=== PATIENT | female | born 1970 | race Caucasian/White ===

== ENCOUNTER → 2016-06-06 | Outpatient (CLI) | payer BC ==
[~2016-06-06] MED LIST: ESCI1TAB10 PO
[2016-06-16 10:02] LABS: CRYPTOSPORIDIUM AG TC 37213 NOT DETECTED (NOT DETECTED); O&P SOURCE OTHER-STOOL
== END | disposition home or self-care (01) ==
LOC: C.LAB 16:42
PROVIDERS: ATTEND Internal Medicine
DX: K52.9 Noninfective gastroenteritis and colitis, unspecified (principal)

== ENCOUNTER → 2016-06-12 | Outpatient (CLI) | payer BC ==
--- NOTE | 2016-06-12 10:07 | DIAGNOSTIC IMAGING REPORT ---
LEFT KNEE 1 OR 2 VIEWS ROUTINE CLINICAL HISTORY: Bilateral knee osteoarthritis. Knee pain. COMPARISON: None FINDINGS: Alignment of left knee is anatomic. There is no acute fracture. There is a small joint effusion. There is moderate medial compartment joint space narrowing of the left knee. There is also moderate joint space narrowing within the patellofemoral compartment with osteophytosis. There is osteophytosis within the lateral compartment of the left knee. IMPRESSION: 1. Moderate to severe osteoarthritis within the medial and patellofemoral compartments of the left knee. 2. No acute fracture. 3. Small left knee joint effusion. Electronically signed by: Edis Mccauley M.D. 06/12/2016 10:05 AM Dictated Date/Time: 06/12/2016 10:04 AM
--- NOTE | 2016-06-12 10:08 | DIAGNOSTIC IMAGING REPORT ---
RIGHT KNEE 1 OR 2 VIEWS ROUTINE CLINICAL HISTORY: Bilateral knee pain. Osteoarthritis. COMPARISON: None FINDINGS: There is moderate medial compartment joint space narrowing of the right knee with osteophytosis. There is a moderate-sized joint effusion. There is joint space narrowing and osteophytosis of the patellofemoral compartment. No fracture or suspicious lesion is identified. IMPRESSION: 1. Moderate arthritis within the medial and patellofemoral compartments of the right knee. 2. Moderate size right knee joint effusion. 3. No fracture. Electronically signed by: Edis Mccauley M.D. 06/12/2016 10:06 AM Dictated Date/Time: 06/12/2016 10:06 AM
[2016-06-12 13:41] LABS: BASO % 0.4 %; BASO ABS # 0.04 K/uL (0-0.2); COMPLETE YES; EOS % 3.6 %; HEMATOCRIT 44.5 % (37-47); IG% 0.2 %; LYMPH % 23.8 %; LYMPH ABS # 2.51 K/uL (1.2-3.4); MEAN CELL VOLUME 88.5 fL (80-100); MEAN CORPUSCULAR HEMOGLOBIN 30.4 pg (25-34); MEAN CORPUSCULAR HGB CONC 34.4 g/dl (32-36); MEAN PLATELET VOLUME 11.1 fL (7.4-10.4); MONO % 6.8 %; NEUT % 65.2 %; PLATELET COUNT 294 K/uL (130-400); RED BLOOD COUNT 5.03 M/uL (4.2-5.4); WHITE BLOOD COUNT 10.56 K/uL (4.8-10.8)
[2016-06-12 14:00] LABS: ALT/SGPT 38 U/L (12-78); AST/SGOT 19 U/L (15-37); BLOOD UREA NITROGEN 16 mg/dl (7-18); BUN/CREATININE RATIO 26.6 (10-20); CARBON DIOXIDE 25 mmol/L (21-32); CHLORIDE 110 mmol/L (98-107); CREATININE 0.59 mg/dl (0.60-1.20); GLUCOSE 86 mg/dl (70-99); POTASSIUM 3.9 mmol/L (3.5-5.1); SODIUM 143 mmol/L (136-145)
[2016-06-12 14:10] LABS: ALKALINE PHOSPHATASE 60 U/L (45-117)
== END | disposition home or self-care (01) ==
LOC: C.RADBC 09:36
PROVIDERS: ATTEND Internal Medicine
DX: K52.9 Noninfective gastroenteritis and colitis, unspecified (principal); M17.0 Bilateral primary osteoarthritis of knee

== ENCOUNTER → 2016-06-27 | Outpatient (CLI) | payer BC | END | disposition home or self-care (01) | LOC: C.RDSM 14:36 | PROVIDERS: ATTEND Orthopaedic Surgery Sports Medicine | DX: M25.561 Pain in right knee (principal); M25.562 Pain in left knee ==

== ENCOUNTER → 2016-10-30 | Day surgery (SDC) | payer BC ==
[2016-10-29 14:54] VITALS: Ht 172.7 cm; Wt 106.4 kg
[~2016-10-30] VITALS: Ht 172.7 cm; Wt 106.4 kg
[~2016-10-30] MED LIST changes: +LIDOCAINE HCL 2% 2 ML VIAL (20MG/ML) ONE; +METOCLOPRAMIDE HCL INJ 5 MG/ML 2 ML VIAL ONE; +PROPOFOL IV EMULSION 10 MG/ML 20 ML VIAL IV ONE; +SODIUM CHLORIDE 0.9% 500ML 500 ML IV ONE
[2016-10-30 15:25] VITALS: TEMP 36.8
--- NOTE | 2016-10-30 16:09 | Endo History and Physical ---
History & Physical Date of Service: Oct 30, 2016. Chief Complaint: Diarrhea Referring Physician: Nubia ALEJANDRO History of Present Illness 46 yo CF who presents for colonoscopy secondary to diarrhea. Past Surgical History Hx Cardiac Surgery: No Hx Internal Defibrillator: No Hx Pacemaker: No Hx Abdominal Surgery: Yes (OVARIAN CYST REMOVAL, HERNIA REPAIR) Hx of Implantable Prosthesis: No Hx Post-Op Nausea and Vomiting: No Hx Cancer Surgery: No Hx Thoracic Surgery: No Hx Orthopedic: Yes (LEFT KNEE MENISCUS REPAIR) Hx Urinary Tract Surgery: No Family History Colon CA, IBD Social History Smoking Status: Current Every Day Smoker Hx Substance Use: No Hx Alcohol Use: No Allergies Coded Allergies: Cephalexin (Verified Allergy, Unknown, HIVES, 10/29/16) Erythromycin (Verified Allergy, Unknown, HIVES, 10/29/16) Nitrofurantoin (Verified Allergy, Unknown, HIVES, 10/29/16) Penicillins (Verified Allergy, Unknown, HIVES, 10/29/16) Sulfa Antibiotics (Verified Allergy, Unknown, HEADACHES, 10/29/16) Current Medications Reported Home Medications Medications Dose Route/Sig Max Daily Dose Days Date Category Lexapro (Escitalopram Oxalate) 20 Mg Tab 20 Mg PO QPM 10/29/16 Reported Vital Signs Weight (Kilograms): 106.36 Height (Feet): 5 Height (Inches): 8 Date Time Temp Pulse Resp B/P (MAP) Pulse Ox O2 Delivery O2 Flow Rate FiO2 10/30/16 15:25 36.8 81 18 123/85 (98) 96 Room Air Physical Exam General Appearance: WD/WN, no apparent distress Respiratory/Chest: Auscultation: breath sounds normal Cardiovascular: Heart Auscultation: RRR Abdomen: Bowel Sounds: normal Inspection & Palpation: soft, non-distended, no tenderness, guarding & rebound Assessment and Plan Assessment: 46 yo CF who presents for colonoscopy secondary to diarrhea. Plan: Proceed with colonoscopy.
--- NOTE | 2016-10-30 16:30 | Discharge Instructions ---
Endoscopy Patient Instructions Date / Procedure(s) Performed Oct 30, 2016. Colonoscopy Allergy Information Coded Allergies: Cephalexin (Verified Allergy, Unknown, HIVES, 10/29/16) Erythromycin (Verified Allergy, Unknown, HIVES, 10/29/16) Nitrofurantoin (Verified Allergy, Unknown, HIVES, 10/29/16) Penicillins (Verified Allergy, Unknown, HIVES, 10/29/16) Sulfa Antibiotics (Verified Allergy, Unknown, HEADACHES, 10/29/16) Discharge Date / Findings Oct 30, 2016. Terminal ileitis s/p biopsies Random colon biopsies Diverticulosis Internal hemorrhoids Medication Instructions OK to resume all medications today as prescribed Medications Dose Route/Sig Max Daily Dose Days Date Category Lexapro (Escitalopram Oxalate) 20 Mg Tab 20 Mg PO QPM 10/29/16 Reported Provider Instructions Activity Restrictions - No exercising or heavy lifting for 24 hours. - Do not drink alcohol the day of the procedure. - Do not drive a car or operate machinery until the day after the procedure. - Do not make any important decisions or sign important papers in 24 hours after the procedure. Following Day: - Return to full activity which may include returning to work/school. Diet Start your diet with liquids and light foods (jello, soup, juice, toast). Then eat your usual diet if not nauseated. Treatment For Common After Affects For mild abdominal pain, bloating, or excessive gas: - Rest - Eat lightly - Lie on right side Follow-Up Information Follow-up with Nubia ALEJANDRO as scheduled Anesthesia Information What You Should Know You have had a procedure that required some medicine to reduce anxiety and discomfort. This treatment is called moderate sedation. After receiving the treatment, you may be sleepy, but you will be able to breathe on your own. The effects of the treatment may last for several hours. Follow these instructions along with Activity/Diet recommendations noted above: * Do NOT do anything where dizziness or clumsiness would be dangerous. * Rest quietly at home today, then you can be up and about tomorrow. * Have a responsible person stay with you the rest of today. * You may have had an I.V. today. If so, you may take the dressing off later today. Recommendations Call your doctor if: * Trouble breathing * Continuous vomiting for more than 24 hours * Temperature above 101 degrees * Severe abdominal pain or bloating * Pain not relieved by pain medicine ordered * There is increased drainage or redness from any incision * A large amount of rectal bleeding greater than 2-3 tablespoons. (If you had a polyp/s removed or have hemorrhoids, a small amount of blood - from the rectum is to be expected.) * You have any unanswered questions or concerns. IN THE EVENT OF A SERIOUS EMERGENCY, GO TO THE NEAREST EMERGENCY ROOM Your discharge instructions were prepared by provider Mike Gottlieb. Patient Instructions Signature Page Muriel Nunn Patient (or Guardian) Signature/Date: I have read and understand the instructions given to me by my caregivers. Caregiver/RN/Doctor Signature/Date: The above-named patient and/or guardian has received patient instructions on this date. + Original Patient Signature Page (only) stays with chart. Please make copy for patient.
--- NOTE | 2016-10-30 16:36 | GI REPORT ---
Procedure Date: 10/30/2016 4:09 PM Procedure: Colonoscopy Indications: Chronic diarrhea, Weight loss Medicines: Monitored Anesthesia Care Complications: No immediate complications. Estimated Blood Loss: Estimated blood loss: none. Procedure: Pre-Anesthesia Assessment: - Prior to the procedure, a History and Physical was performed, and patient medications and allergies were reviewed. The patient's tolerance of previous anesthesia was also reviewed. The risks and benefits of the procedure and the sedation options and risks were discussed with the patient. All questions were answered, and informed consent was obtained. Prior Anticoagulants: The patient has taken no previous anticoagulant or antiplatelet agents. ASA Grade Assessment: II - A patient with mild systemic disease. After reviewing the risks and benefits, the patient was deemed in satisfactory condition to undergo the procedure. After I obtained informed consent, the scope was passed under direct vision. Throughout the procedure, the patient's blood pressure, pulse, and oxygen saturations were monitored continuously. The scope was introduced through the anus and advanced to the terminal ileum. The colonoscopy was performed without difficulty. The patient tolerated the procedure well. The quality of the bowel preparation was good. The terminal ileum, ileocecal valve, appendiceal orifice, and rectum were photographed. Findings: Localized inflammation, mild in severity and characterized by congestion (edema), linear erosions and aphthous ulcerations was found in the terminal ileum. Biopsies were taken with a cold forceps for histology. Multiple small-mouthed diverticula were found in the sigmoid colon. Non-bleeding internal hemorrhoids were found during retroflexion. The hemorrhoids were small. Several random biopsies were obtained with cold forceps for histology in the entire colon. Fluid aspiration for cytology was performed in the entire colon. Impression: - Ileitis. Biopsied. - Diverticulosis in the sigmoid colon. - Non-bleeding internal hemorrhoids. - Several random biopsies were obtained in the entire colon. - Fluid aspiration was performed. Recommendation: - Resume previous diet. - Continue present medications. - Repeat colonoscopy for surveillance based on pathology results. - Return to primary care physician as previously scheduled. Mike Gottlieb DO 10/30/2016 4:36:24 PM This report has been signed electronically. Note Initiated On: 10/30/2016 4:09 PM I attest to the content of the Intraoperative Record and orders documented therein, exceptions below
[2016-10-30 17:09] VITALS: BP 127/97; PULSE 66; O2SAT 95
--- NOTE | 2016-10-30 17:16 | Anesthesiology Progress Note ---
Anesthesia Post Op Note Date & Time Oct 30, 2016 at 17:16 Vital Signs Pain Intensity: 0 Vital Signs Past 12 Hours Date Time Temp Pulse Resp B/P (MAP) Pulse Ox O2 Delivery O2 Flow Rate FiO2 10/30/16 17:09 66 16 127/97 (107) 95 Room Air 10/30/16 16:54 68 16 135/95 (108) 94 Room Air 10/30/16 16:39 94 16 132/81 (98) 94 Room Air 10/30/16 15:25 36.8 81 18 123/85 (98) 96 Room Air Notes Mental Status: alert / awake / arousable, participated in evaluation Pt Amnestic to Procedure: Yes Nausea / Vomiting: adequately controlled Pain: adequately controlled Airway Patency, RR, SpO2: stable & adequate BP & HR: stable & adequate Hydration State: stable & adequate Anesthetic Complications: no major complications apparent
== END | disposition home or self-care (01) ==
LOC: C.GI 15:07
PROVIDERS: ATTEND Internal Medicine
DX: K52.9 Noninfective gastroenteritis and colitis, unspecified (principal); R63.4 Abnormal weight loss; K57.30 Diverticulosis of large intestine without perforation or abscess without bleeding; E66.9 Obesity, unspecified; G47.33 Obstructive sleep apnea (adult) (pediatric); K64.8 Other hemorrhoids; Z98.890 Other specified postprocedural states; F17.200 Nicotine dependence, unspecified, uncomplicated; Z98.41 Cataract extraction status, right eye; Z90.89 Acquired absence of other organs; Z68.36 Body mass index [BMI] 36.0-36.9, adult; Z88.2 Allergy status to sulfonamides; Z88.0 Allergy status to penicillin; Z88.1 Allergy status to other antibiotic agents; Z80.0 Family history of malignant neoplasm of digestive organs

== ENCOUNTER → 2016-11-06 | Outpatient (CLI) | payer BC ==
[~2016-11-06] MED LIST changes: -LIDOCAINE HCL 2% 2 ML VIAL (20MG/ML) ONE; -METOCLOPRAMIDE HCL INJ 5 MG/ML 2 ML VIAL ONE; -PROPOFOL IV EMULSION 10 MG/ML 20 ML VIAL IV ONE; -SODIUM CHLORIDE 0.9% 500ML 500 ML IV ONE
[2016-11-06 14:44] LABS: BASO % 0.3 %; BASO ABS # 0.04 K/uL (0-0.2); COMPLETE YES; EOS % 1.3 %; HEMATOCRIT 44.7 % (37-47); IG% 0.2 %; LYMPH % 19.8 %; LYMPH ABS # 2.51 K/uL (1.2-3.4); MEAN CELL VOLUME 88.5 fL (80-100); MEAN CORPUSCULAR HEMOGLOBIN 28.9 pg (25-34); MEAN CORPUSCULAR HGB CONC 32.7 g/dl (32-36); MONO % 5.9 %; NEUT % 72.5 %; PLATELET COUNT 313 K/uL (130-400); RED BLOOD COUNT 5.05 M/uL (4.2-5.4)
[2016-11-06 15:37] LABS: ALT/SGPT 39 U/L (12-78); AST/SGOT 22 U/L (15-37); BLOOD UREA NITROGEN 8 mg/dl (7-18); BUN/CREATININE RATIO 10.9 (10-20); C-REACTIVE PROTEIN 1.01 mg/dl (0-0.29); CARBON DIOXIDE 25 mmol/L (21-32); CHLORIDE 110 mmol/L (98-107); GLUCOSE 89 mg/dl (70-99); POTASSIUM 3.2 mmol/L (3.5-5.1); SODIUM 143 mmol/L (136-145)
[2016-11-06 15:39] LABS: ALB/GLOB RATIO 0.9 (0.9-2); ALKALINE PHOSPHATASE 65 U/L (45-117)
== END | disposition home or self-care (01) ==
LOC: C.LAB1850 14:04
PROVIDERS: ATTEND Registered Nurse
DX: K63.3 Ulcer of intestine (principal); K52.9 Noninfective gastroenteritis and colitis, unspecified

== ENCOUNTER → 2017-10-03 | Outpatient (CLI) | payer OTHER ==
--- NOTE | 2017-10-03 12:00 | DIAGNOSTIC IMAGING REPORT ---
CHEST 2 VIEWS ROUTINE HISTORY: Cough. COMPARISON: Chest 04/02/2015. FINDINGS: The lungs are clear. The heart is normal in size. No pleural effusions. No pneumothorax. IMPRESSION: No acute process. Electronically signed by: Simón Nino M.D. 10/03/2017 11:59 AM Dictated Date/Time: 10/03/2017 11:57 AM
== END | disposition home or self-care (01) ==
LOC: C.RAD1850 11:36
PROVIDERS: ATTEND Nurse Practitioner
DX: R05 Cough (principal)

== ENCOUNTER 2019-03-06 14:22 | Inpatient (IN) ==
[2019-03-06 15:31] LABS: Basophils # (auto) 0.03 K/uL (0-0.2); Basophils % (auto) 0.3 %; Eosinophils # (auto) 0.23 K/uL (0-0.5); Eosinophils % (auto) 2.3 %; Hematocrit (blood only) 49.4 % (37-47); Hemoglobin 16.7 g/dL (12.0-16.0); Immature Granulocytes # (auto) 0.01 K/uL (0.00-0.02); Immature Granulocytes % (auto) 0.1 %; Lymphocytes # (auto) 1.13 K/uL (1.2-3.4); Lymphocytes % (auto) 11.1 %; Mean Corpuscular Hemoglobin 30.5 pg (25-34); Mean Corpuscular Hgb Conc 33.8 g/dL (32-36); Mean Corpuscular Volume 90.1 fL (80-100); Mean Platelet Volume 11.3 fL (7.4-10.4); Monocytes # (auto) 0.78 K/uL (0.11-0.59); Monocytes % (auto) 7.6 %; Neutrophils # (auto) 8.03 K/uL (1.4-6.5); Neutrophils % (auto) 78.6 %; Platelet Count 234 K/uL (130-400); RDW Coefficient of Variation 13.5 % (11.5-14.5); RDW Standard Deviation 44.4 fL (36.4-46.3); Red Blood Count 5.48 M/uL (4.2-5.4); White Blood Count 10.21 K/uL (4.8-10.8)
[2019-03-06] MEDS ORDERED: SODIUM CHLORIDE 0.9% 1000ML 1,000 ML IV ONE (15:37)
--- NOTE | 2019-03-06 15:37 | Emergency Department Note ---
ED Provider Note CHIEF COMPLAINT: Left-sided abdominal and flank pain HISTORY OF PRESENTING ILLNESS: This is a 48-year-old female who presents to the emergency department by private vehicle with complaint of diffuse abdominal pain that radiates into her left side and has been ongoing for the past 2 days. She states the pain is constant, cramping and occasionally sharp, and rates it as 8/10. She has tried Tylenol for her symptoms without much improvement. Patient has also had associated nausea and has vomited twice a day. She denies any diarrhea. She does note that her last bowel movement was 2 days ago and she is feeling slightly constipated. She denies any urinary symptoms. She does report a history of a spigelion (lateral ventral) hernia repair 6 years ago, she denies any other abdominal surgeries. She denies any history of kidney stones. She does have a family history of kidney stones. She does note that she has had some pain radiating up into the left side of her chest as well, but denies any shortness of breath, cough, hemoptysis, fevers or chills. She notes that she travels a lot for her job and recently returned a few days ago from visiting [facility], [facility], and [facility]. She does note that she has had some intermittent swelling in both of her legs during her travels, but denies any persistent calf swelling or tenderness. She denies any history of blood clots. She is a current everyday smoker. She is postmenopausal and denies any chance of . REVIEW OF SYSTEMS: A complete 10 point review of systems was reviewed with the patient with pertinent positives and negatives as per history of present illness. All else were negative. PAST MEDICAL HISTORY: Migraines, hyperlipidemia, anxiety, sleep apnea, hernia r epair, tonsillectomy and adenoidectomy, ovarian cystectomy SOCIAL HISTORY: Lives at home with her family, she is a current everyday smoker ALLERGIES: Reviewed in chart and with the patient PHYSICAL EXAM: CONSTITUTIONAL: Pleasant and cooperative. Nontoxic-appearing and in no acute distress. Mildly dehydrated, but otherwise well appearing and well nourished. HEENT: Normocephalic, atraumatic. PERRL, EOMI. Pharynx normal. Tacky mucous membranes. NECK: Supple, full active range of motion without discomfort. RESPIRATORY: Clear to auscultation bilaterally with no wheezing, crackles, rhonchi or stridor. Equal expansion bilaterally. CARDIOVASCULAR: Regular rate and rhythm with no murmurs, rubs or gallops. Normal peripheral perfusion. No edema. GASTROINTESTINAL: Diffuse abdominal tenderness, most tender in the right and left upper quadrant and left flank, no rebound tenderness or guarding. Abdomen is soft and nondistended. No palpable masses or HSM. Bowel sounds present in all quadrants. No CVA tenderness bilaterally. MUSCULOSKELETAL: Full range of motion of all joints without discomfort. INTEGUMENTARY: No rash or other significant dermatologic conditions noted. NEUROLOGIC: Alert and oriented X 4 with normal affect. Normal strength and sensation in all 4 extremities. Normal speech. Normal gait observed. ED COURSE AND MEDICAL DECISION MAKING: CC: Patient presenting with complaint of abdominal/flank pain, nausea and vomiting DIFFERENTIAL DIAGNOSIS: Includes, but not limited to gastroenteritis, gastritis, peptic ulcer disease, GERD, cholecystitis, cholelithiasis, panc reatitis, choledocholithiasis, ureteral stone, UTI, pyelonephritis, diverticulitis, food poisoning, ACS, PE, among others. INTERPRETATION OF LABS: No leukocytosis, no anemia, normal platelet, no sign ificant electrolyte abnormalities, normal renal function, significantly elevated T bili and liver enzymes, normal lipase. Coagulation factors within normal limits. UA negative for infection. Hepatitis panel pending. IMAGING: CHEST CTA for PULMONARY ARTERIES CT DOSE: HISTORY: left flank and chest pain, eval PE TECHNIQUE: Multiaxial CT images of the chest were performed following the intrav enous administration of contrast to evaluate the pulmonary arteries. Maximal intensity projection images were also obtained. A dose lowering technique was utilized adhering to the principles of ALARA. COMPARISON STUDY: None. FINDINGS: Normal caliber thoracic aorta with no evidence for dissection. The heart is normal in size. No pleural or pericardial effusions. No mediastinal or hilar lymphadenopathy. Normal esophagus. No suspicious lytic are blastic osseous lesions. The central airways are patent. No pneumothorax. Groundglass densities within the lungs posteriorly favor mild dependent change. A 3 mm nodule within the right lung apex on image 250. A 4 mm subpleural nodule within the right upper lobe on image 186. No focal lung consolidations. No filling defects within the pulmonary arteries to suggest pulmonary embolus. IMPRESSION: 1. No evidence for pulmonary embolus. 2. Subcentimeter nodules within the right lung with the largest measuring 4 mm as described above. Please refer to the chart below for further recommendations. ----- ABDOMEN AND PELVIS CT WITH IV CONTRAST CT DOSE: 2453.49 mGy.cm HISTORY: abd, left flank pain, n/v, hx left ventr hernia TECHNIQUE: Multiaxial CT images of the abdomen and pelvis were performed following the use of intravenous contrast. A dose lowering technique was utilized adhering to the principles of ALARA. COMPARISON STUDY: None. FINDINGS: The lung bases are essentially clear. No pneumoperitoneum. No pneumatosis. No suspicious lytic are blastic osseous lesions. No fractures identified. The liver, spleen, adrenal glands, pancreas, and kidneys are unremarkable. No hydronephrosis. No retroperitoneal lymphadenopathy. A 1.2 cm exophytic lesion at the uterine fundus. This favors a fibroid. The bladder and bilateral adnexa are unremarkable. No pelvic free fluid. Colonic diverticulosis. No evidence for diverticulitis. No bowel wall thickening or obstruction. The tip the appendix is distended up to 1 cm. However, there is no surrounding inflammatory change. This could represent a normal variant. Diffuse gallbladder wall thickening with a small amount of pericholecystic fluid. Normal caliber common bile duct. IMPRESSION: 1. Diffuse gallbladder wall thickening with a small amount of pericholecystic fluid. This is nonspecific and could be due to a diffuse edematous state or acute cholecystitis. Recommend correlation for right upper quadrant pain. 2. The tip of the appendix is distended up to 1 cm. However, there is no vu rounding inflammatory change. Therefore, this does not appear to represent acute appendicitis and could represent a normal variant. One-month abdomen and pelvis CT follow-up with oral contrast is recommended to ensure stability and exclude the less likely possibility of an appendiceal lesion. 3. No evidence for bowel obstruction. EKG: Shows normal sinus rhythm with a rate of 63 bpm, normal intervals, no ST or T wave abnormalities, no ectopy, no significant change when compared to previous EKG from 11/10/2018 by my interpretation. MEDICATION RECONCILIATION: I attest that I have personally reviewed the patient's current medication list. INITIAL VITAL SIGNS REVIEW: I reviewed the patient's initial vital signs and interpret them as follows: T: Afebrile; BP: Hypertensive; HR: Within normal limits; RR: Within normal limits; Pulse Ox: Within normal limits on room air. Blood pressure screening: The patient was found to have an elevated blood pressure and was referred to the inpatient team for further management. MDM SUMMARY: Patient was evaluated at bedside, history and physical exam performed. Patient is alert and oriented, in no acute distress, but appears uncomfortable from pain, resting in the stretcher. She is afebrile and nontoxic-appearing, does appear to be mildly dehydrated. Tenderness throughout the entire abdomen, most tender to palpation in the right and left upper quadrant and left flank area. No acute abdomen. Pain does radiate upwards into the chest, she denies shortness of breath, but does have recent long travel and reported leg swelling. Orders were placed at bedside for labs, IV fluid bolus for hydration, EKG, CT abdomen/pelvis with IV contrast and CTA chest to evaluate for flank and abdominal pain. The patient was offered something for pain and nausea, she states she is comfortable right now and declines any medication at this time. Patient discussed with Dr. Byrd, who agrees with my assessment, plan, and disposition. Labs and imaging reviewed as above, labs are notable for significantly elevated liver enzymes. Hepatitis panel added. Lipase is normal. No leukocytosis and she has been afebrile. CT imaging reviewed as above, notable for diffuse gallbladder wall thickening with pericholecystic fluid which is most likely the cause of the patient's abdominal pain and liver enzyme elevation. No evidence of PE on chest CTA I spoke on the phone with Dr. Acosta, general surgery, regarding the patient's CT findings, he felt the patient should be admitted to the medicine service and evaluated for possible need of MRCP/ERCP, and was willing to consult. Patient reassessed multiple times throughout ED stay, she has remained stable a nd afebrile, and reports that her pain and nausea remain well controlled. The patient was updated on all results and plan for admission, she verbalized understanding and was agreeable to this plan. I spoke on the phone with Dr. Dotson, [facility] Hospitalist, who agrees to evaluate the patient for admission. The patient was stable at time of admission. The chart was completed utilizing [employer] Speech voice recognition software. Grammatical errors, random word insertions, pronoun errors, and incomplete sentences are an occasional consequence of this system due to software limitations, ambient noise, and hardware issues. Any formal questions or concerns about the content, text, or information contained within the body of this dictation should be directly addressed to the nurse practitioner for clarification. Impression & Plan Abdominal pain, Acute cholecystitis, Transaminitis, Nausea and vomiting Past Med/Surg History Social History Preferred Language: Palauan Communication Ability: Effective [employer] Required: No Beliefs That Will Affect Care: None marital status: Current Living Situation: Family Current Living Situation Comment: special needs child at home Feels Safe at Home: Yes Smoking Status: Current every day smoker Tobacco Type: cigarettes ; Cigarettes Per Day: OCCASIONAL CIG USE ; Second Hand Exposure: Yes ; Hx Alcohol Use: No Hx Substance Use: No Sunscreen Use: Yes Results & Data Vital Signs Vital Signs - 24 hr 03/06/19 14:41 03/06/19 15:56 03/06/19 15:58 Temperature 37.4 C Temperature Source Oral Sepsis Recent Fever Within 48 Hours No Sepsis New/Unexplained Change in Mental Status No Sepsis Action Taken by Nursing No Action Required Pulse Rate 72 73 70 Respiratory Rate 20 23 19 Respiratory Effort / Characteristics Non-Labored Spontaneous Respiratory Depth Normal Respiratory Pattern Regular Blood Pressure 149/114 H 161/104 H Blood Pressure Mean 125 123 Blood Pressure Position Sitting Pulse Oximetry 97 Oxygen Delivery Method Room Air 03/06/19 16:00 Temperature Temperature Source Sepsis Recent Fever Within 48 Hours Sepsis New/Unexplained Change in Mental Status Sepsis Action Taken by Nursing Pulse Rate 69 Respiratory Rate 23 Respiratory Effort / Characteristics Respiratory Depth Respiratory Pattern Blood Pressure Blood Pressure Mean Blood Pressure Position Pulse Oximetry Oxygen Delivery Method Laboratory Data Result diagrams: 03/06/19 15:23 03/06/19 15:23 Lab Results 03/06/19 03/06/19 03/06/19 Range/Units 15:23 15:23 15:23 WBC 10.21 (4.8-10.8) K/uL RBC 5.48 H (4.2-5.4) M/uL Hgb 16.7 H (12.0-16.0) g/dL Hct 49.4 H (37-47) % MCV 90.1 (80-100) fL MCH 30.5 (25-34) pg MCHC 33.8 (32-36) g/dL RDW Std Deviation 44.4 (36.4-46.3) fL RDW Coeff of Genoveva 13.5 (11.5-14.5) % Plt Count 234 (130-400) K/uL MPV 11.3 H (7.4-10.4) fL Immature Gran % (Auto) 0.1 % Neut % (Auto) 78.6 % Lymph % (Auto) 11.1 % [place] % (Auto) 7.6 % Eos % (Auto) 2.3 % Baso % (Auto) 0.3 % Immature Gran # (Auto) 0.01 (0.00-0.02) K/uL Neut # (Auto) 8.03 H (1.4-6.5) K/uL Lymph # (Auto) 1.13 L (1.2-3.4) K/uL [place] # (Auto) 0.78 H (0.11-0.59) K/uL Eos # (Auto) 0.23 (0-0.5) K/uL Baso # (Auto) 0.03 (0-0.2) K/uL PT 9.9 (9.0-12.0) Seconds INR 1.0 (0.9-1.1) Sodium 141 (136-145) mmol/L Potassium 3.5 (3.5-5.1) mmol/L Chloride 106 (98-107) mmol/L Carbon Dioxide 29 (21-32) mmol/L Anion Gap 6.0 (3-11) BUN 12 (7-18) mg/dl Creatinine 0.76 (0.6-1.2) mg/dl Est Cr Clr Drug Dosing 110.6 ml/min Est GFR ( Amer) 106.0 Est GFR (Non-Af Amer) 91.5 BUN/Creatinine Ratio 15.4 (10-20) Glucose 116 H (70-99) mg/dl Calcium 9.4 (8.5-10.1) mg/dl Total Bilirubin 2.0 H (0.2-1) mg/dl AST 348 H (15-37) U/L ALT 667 H (12-78) U/L Alkaline Phosphatase 184 H (45-117) U/L Total Protein 8.3 H (6.4-8.2) gm/dl Albumin 4.0 (3.4-5.0) gm/dl Globulin 4.3 H (2.5-4.0) gm/dl Albumin/Globulin Ratio 0.9 (0.9-2) Lipase 253 (73-393) U/L Urine Color Urine Appearance (Clear) Urine pH (4.5-7.5) POC Urine pH (4.5-7.5) Ur Specific [place] (1.000-1.030) Urine Protein (Negative) POC Urine Protein (Negative) Urine Glucose (UA) (Negative) POC Ur Glucose (UA) (Normal) Urine Ketones (Negative) POC Urine Ketones (Negative) Urine Blood (Negative) POC Urine Blood (Negative) Urine Nitrite (Negative) POC Urine Nitrite (Negative) Urine Bilirubin (Negative) POC Urine Bilirubin (Negative) Urine Urobilinogen (Negative) POC Urine Urobilinogen (Normal) Ur Leukocyte Esterase (Negative) POC U Leukocyte Esteras (Negative) Urine RBC (0-4) /hpf Urine WBC (0-5) /hpf Ur Epithelial Cells (0-5) /lpf Urine Bacteria (Negative) Urine Mucus (None Prsent) Hep Bs Antigen (Neg) Hepatitis C Antibody (Neg) 03/06/19 03/06/19 03/06/19 Range/Units 15:23 15:23 15:23 WBC (4.8-10.8) K/uL RBC (4.2-5.4) M/uL Hgb (12.0-16.0) g/dL Hct (37-47) % MCV (80-100) fL MCH (25-34) pg MCHC (32-36) g/dL RDW Std Deviation (36.4-46.3) fL RDW Coeff of Genoveva (11.5-14.5) % Plt Count (130-400) K/uL MPV (7.4-10.4) fL Immature Gran % (Auto) % Neut % (Auto) % Lymph % (Auto) % [place] % (Auto) % Eos % (Auto) % Baso % (Auto) % Immature Gran # (Auto) (0.00-0.02) K/uL Neut # (Auto) (1.4-6.5) K/uL Lymph # (Auto) (1.2-3.4) K/uL [place] # (Auto) (0.11-0.59) K/uL Eos # (Auto) (0-0.5) K/uL Baso # (Auto) (0-0.2) K/uL PT (9.0-12.0) Seconds INR (0.9-1.1) Sodium (136-145) mmol/L Potassium (3.5-5.1) mmol/L Chloride (98-107) mmol/L Carbon Dioxide (21-32) mmol/L Anion Gap (3-11) BUN (7-18) mg/dl Creatinine (0.6-1.2) mg/dl Est Cr Clr Drug Dosing ml/min Est GFR ( Amer) Est GFR (Non-Af Amer) BUN/Creatinine Ratio (10-20) Glucose (70-99) mg/dl Calcium (8.5-10.1) mg/dl Total Bilirubin (0.2-1) mg/dl AST (15-37) U/L ALT (12-78) U/L Alkaline Phosphatase (45-117) U/L Total Protein (6.4-8.2) gm/dl Albumin (3.4-5.0) gm/dl Globulin (2.5-4.0) gm/dl Albumin/Globulin Ratio (0.9-2) Lipase (73-393) U/L Urine Color Yellow Urine Appearance Clear (Clear) Urine pH 8.5 H (4.5-7.5) POC Urine pH 8 H (4.5-7.5) Ur Specific [place] 1.020 (1.000-1.030) Urine Protein 2+ H (Negative) POC Urine Protein 1+ H (Negative) Urine Glucose (UA) Negative (Negative) POC Ur Glucose (UA) Normal (Normal) Urine Ketones Negative (Negative) POC Urine Ketones Negative (Negative) Urine Blood Trace H (Negative) POC Urine Blood Negative (Negative) Urine Nitrite Negative (Negative) POC Urine Nitrite Negative (Negative) Urine Bilirubin 1+ H (Negative) POC Urine Bilirubin Negative (Negative) Urine Urobilinogen Negative (Negative) POC Urine Urobilinogen Normal (Normal) Ur Leukocyte Esterase Negative (Negative) POC U Leukocyte Esteras Negative (Negative) Urine RBC 0-4 (0-4) /hpf Urine WBC 0-5 (0-5) /hpf Ur Epithelial Cells 5-10 H (0-5) /lpf Urine Bacteria Negative (Negative) Urine Mucus Present A (None Prsent) Hep Bs Antigen Neg (Neg) Hepatitis C Antibody Neg (Neg) Administered Medications Sodium Chloride (Nss 1000ml) 1,000 mls @ 100 mls/hr IV .Q10H FABIAN Stop: 04/05/19 20:04 Last Admin: 03/06/19 20:43 Dose: 100 mls/hr Documented by: [id number] Ondansetron HCl (Zofran) 4 mg IV Q6H PRN PRN Reason: Nausea Stop: 04/05/19 20:04 Last Admin: 03/06/19 20:40 Dose: 4 mg Documented by: [id number] Discontinued Medications Sodium Chloride (Nss 1000ml) 1,000 mls @ 999 mls/hr IV .Q1H1M ONE Stop: 03/06/19 16:37 Last Infusion: 03/06/19 17:07 Dose: 0 mls/hr Documented by: [id number] Admin: 03/06/19 15:57 Dose: 999 mls/hr Documented by: [id number] Ioversol (Optiray 320 125ml) 119 ml IV ONCE PRN PRN Reason: Interaction Checking Stop: 03/10/19 16:19 Last Admin: 03/06/19 16:20 Dose: 119 ml Documented by: [id number] Discharge Plan Visit Data *Final* Discharge Date/Time: 03/06/19 19:25 Chief Complaint: Flank Pain Stated Complaint: VOMITING, SEVERE LLQ PAIN, INTO BACK ED Provider: Katya Byrd ED Midlevel Provider: Barbara Cardona Discharge Problem: Abdominal pain, Acute cholecystitis, Transaminitis, Nausea and vomiting Patient Disposition: Admitted As Inpatient Condition: Good Discharge Instructions Interventions: ED Discharge Assessment Last Done: 03/06/19 19:25
[2019-03-06 15:48] LABS: BUN Creatinine Ratio 15.4 (10-20); Calcium 9.4 mg/dl (8.5-10.1); Creatinine Clr Calc Pharmacy 110.6 ml/min; Est GFR (Non-African American) 91.5; POC Urine Bilirubin Negative (Negative); POC Urine Blood Negative (Negative); POC Urine Glucose Normal (Normal); POC Urine Ketones Negative (Negative); POC Urine Leukocytes Negative (Negative); POC Urine Nitrite Negative (Negative); POC Urine Protein 1+ (Negative); POC Urine Urobilinogen Normal (Normal); POC Urine pH 8 (4.5-7.5); Potassium 3.5 mmol/L (3.5-5.1)
[2019-03-06 15:50] LABS: Albumin Globulin Ratio 0.9 (0.9-2); Globulin 4.3 gm/dl (2.5-4.0); Prothrombin Time 9.9 Seconds (9.0-12.0); Total Protein 8.3 gm/dl (6.4-8.2)
[2019-03-06 15:55] LABS: Appearance Urine Clear (Clear); Blood Urine Trace (Negative); Color Urine Yellow; Glucose Urine UA Negative (Negative); Ketones Urine Negative (Negative); Leukocyte Esterase Urine Negative (Negative); Nitrite Urine Negative (Negative); Urobilinogen Urine Negative (Negative); pH Urine 8.5 (4.5-7.5)
[2019-03-06 16:07] LABS: Bilirubin Urine 1+ (Negative); Ictotest Urine Positive (Negative); Protein Urine 2+ (Negative); Sulfosalicylic Acid Urine Positive (Negative)
[2019-03-06 16:14] LABS: Bacteria Urine Negative (Negative); Mucus Urine Present (None Prsent); RBC Urine 0-4 /hpf (0-4); WBC Urine 0-5 /hpf (0-5)
[2019-03-06] MEDS ORDERED: OPTIRAY 320 125ml IV PRN (16:20)
--- NOTE | 2019-03-06 16:53 | CT Scan Report ---
CHEST CTA for PULMONARY ARTERIES CT DOSE: HISTORY: left flank and chest pain, eval PE TECHNIQUE: Multiaxial CT images of the chest were performed following the intravenous administration of contrast to evaluate the pulmonary arteries. Maximal intensity projection images were also obtaine d. A dose lowering technique was utilized adhering to the principles of ALARA. COMPARISON STUDY: None. FINDINGS: Normal caliber thoracic aorta with no evidence for dissection. The heart is normal in size. No pleural or pericardial effusions. No mediastinal or hilar lymphadenopathy. Normal esophagus. No s uspicious lytic are blastic osseous lesions. The central airways are patent. No pneumothorax. Groundg lass densities within the lungs posteriorly favor mild dependent change. A 3 mm nodule within the rig ht lung apex on image 250. A 4 mm subpleural nodule within the right upper lobe on image 186. No foca l lung consolidations. No filling defects within the pulmonary arteries to suggest pulmonary embolus. IMPRESSION: 1. No evidence for pulmonary embolus. 2. Subcentimeter nodules within the right lung with the largest measuring 4 mm as described above. Pl ease refer to the chart below for further recommendations. Please refer to below summary of Fleischner criteria recommendations for follow-up of incidental CT n odules (Evi Velarde, Guidelines for management of small pulmonary nodules detected on CT scans: A sta tement from the Fleischner Society, Radiology 237: [phone].) SOLID NODULES Solitary nodule size: <6 mm * Low risk patients: no follow-up needed * high risk patients: optional CT at 12 months Solitary nodule size: 6-8 mm * Low risk patients: follow-up at 6-12 months, then consider further follow-up at 18-24 months * high risk patients: initial follow-up CT at 6-12 months and then at 18-24 months if no change Solitary nodule size: >8 mm * either low or high risk patients - consider follow-up CT at 3 months, and/or CT-PET, and/or biopsy Multiple nodules size: <6 mm * Low risk patients: no routine follow-up * high risk patients: optional CT at 12 months Multiple nodules size: 6-8 mm * Low risk patients: follow-up at 3-6 months, then consider further follow-up at 18-24 months * high risk patients: follow-up at 3-6 months, then at 18-24 months if no change Multiple nodules size: >8 mm * Low risk patients: follow-up at 3-6 months, then consider further follow-up at 18-24 months * high risk patients: follow-up at 3-6 months, then at 18-24 months if no change Note: newly detected indeterminate nodule in persons 35 years of age or older. * Low risk patients: minimal or absent history of smoking and/or other known risk factors * high risk patients: history of smoking or of other known risk factors (e.g. first degree relative with lung cancer, or exposure to asbestos, radon, uranium) * if a nodule up to 8 mm is partly solid or is ground glass further follow-up is required after 24 m onths to exclude possible slow growing adenocarcinoma (TALYA) SUBSOLID NODULES Solitary pure ground-glass nodule * nodule size <6 mm - no CT follow-up required * nodule size >=6 mm - follow-up CT at 6-12 months, then every 2 years until 5 years Solitary part-solid nodule * nodule size <6 mm - no CT follow-up required * nodule size >=6 mm - follow-up CT at 3-6 months. If unchanged, and solid component remains <6 mm, then annual follow-up for 5 years Multiple subsolid nodules * nodule size <6 mm - follow-up CT at 3-6 months, consider further follow-up at 2 and 4 years if sta ble * nodule size >=6 mm - follow-up CT at 3-6 months, subsequent management based on the most suspiciou s nodule(s) Electronically signed by: Simón Nino M.D. 03/06/2019 4:52 PM
--- NOTE | 2019-03-06 17:00 | CT Scan Report ---
ABDOMEN AND PELVIS CT WITH IV CONTRAST CT DOSE: 2453.49 mGy.cm HISTORY: abd, left flank pain, n/v, hx left ventr hernia TECHNIQUE: Multiaxial CT images of the abdomen and pelvis were performed following the use of intrave nous contrast. A dose lowering technique was utilized adhering to the principles of ALARA. COMPARISON STUDY: None. FINDINGS: The lung bases are essentially clear. No pneumoperitoneum. No pneumatosis. No suspicious ly tic are blastic osseous lesions. No fractures identified. The liver, spleen, adrenal glands, pancreas , and kidneys are unremarkable. No hydronephrosis. No retroperitoneal lymphadenopathy. A 1.2 cm exoph ytic lesion at the uterine fundus. This favors a fibroid. The bladder and bilateral adnexa are unrema rkable. No pelvic free fluid. Colonic diverticulosis. No evidence for diverticulitis. No bowel wall t hickening or obstruction. The tip the appendix is distended up to 1 cm. However, there is no surround ing inflammatory change. This could represent a normal variant. Diffuse gallbladder wall thickening w ith a small amount of pericholecystic fluid. Normal caliber common bile duct. IMPRESSION: 1. Diffuse gallbladder wall thickening with a small amount of pericholecystic fluid. This is nonspeci fic and could be due to a diffuse edematous state or acute cholecystitis. Recommend correlation for r ight upper quadrant pain. 2. The tip of the appendix is distended up to 1 cm. However, there is no surrounding inflammatory mell nge. Therefore, this does not appear to represent acute appendicitis and could represent a normal gustavo iant. One-month abdomen and pelvis CT follow-up with oral contrast is recommended to ensure stability and exclude the less likely possibility of an appendiceal lesion. 3. No evidence for bowel obstruction. Electronically signed by: Simón Nino M.D. 03/06/2019 4:59 PM
[2019-03-06 17:17] LABS: Hepatitis B Surface Antigen Neg (Neg)
[2019-03-06 17:45] LABS: Hepatitis C IgG 13Yrs+Old_Rflx Neg (Neg)
--- NOTE | 2019-03-06 19:14 | History & Physical Report ---
Date of Service March 06, 2019 Assessment & Plan (1) Abdominal pain: (2) Acute cholecystitis: (3) Transaminitis: (4) Current smoker: (5) Depression with anxiety: (6) Obstructive sleep apnea of adult: (7) Hyperlipidemia: Start the patient on IV antibiotics. Consult surgery. Consult gastroenterology. Keep the patient NPO. Add IV fluids. Add Morphine for pain control, Zofran for nausea vomiting. Add IV Pepcid. Repeat labs in a.m. Patient may need MRCP. Add subcu heparin for DVT prophylaxis. CODE STATUS full code. History of Present Illness Chief Complaint: Abdominal pain Primary Care Provider: Galileo Sanchez MD The patient is 48 years old female who presented to the emergency room today with chief complaints of abdominal pain. The [place] after international travel to multiple countries. The patient states that her abdominal pain started on Thursday, while she was in the flight. She is complaining of pain in the epigastric area and in the right hypochondrium. Her symptoms have been progressive for last 3 days. She has associated nausea vomiting and decreased oral intake. Today she rates it as 8 out of 10 intensity. Pain gets worse after eating food. No hematemesis. No diarrhea or constipation. No bloody stools. She denies any gallstones or any liver or pancreas problem in the past. Further work-up done the ER shows that patient possibly has acute cholecystitis with transaminitis. Surgery was notified. Patient will be admitted to the hospitalist service and gastroenterology and surgery will be consulted. Allergies Allergy/AdvReac Type Severity Reaction Status Date / Time cephalexin Allergy Intermediate HIVES Verified 03/06/19 15:51 erythromycin base Allergy Intermediate HIVES Verified 03/06/19 15:51 nitrofurantoin Allergy Intermediate HIVES Verified 03/06/19 15:51 Penicillins Allergy Intermediate HIVES Verified 03/06/19 15:51 influenza virus vacc AdvReac Intermediate HEADACHE & Verified 03/06/19 15:51 trivalent, split MYALGIA [From Fluzone] Sulfa (Sulfonamide AdvReac Mild HEADACHES Verified 03/06/19 15:51 Antibiotics) Home Medications Home Medications Medication Instructions Recorded Confirmed Type albuterol sulfate HFA 90 2 puffs INH Q6H PRN #18 gm 12/22/18 03/06/19 Rx mcg/actuation aerosol inhaler escitalopram 20 mg tablet 20 mg PO HS #90 tab 02/16/19 03/06/19 Rx meloxicam 15 mg PO DAILY 03/06/19 03/06/19 History Past Med/Surg History Social History Preferred Language: [place]orese Communication Ability: Effective 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 Beliefs That Will Affect Care: Faith Faith Beliefs: AMISH marital status: Current Living Situation: Spouse Current Living Situation Comment: special needs child at home Feels Safe at Home: Yes Smoking Status: Current every day smoker Tobacco Type: cigarettes ; Cigarettes Per Day: OCCASIONAL CIG USE ; Second Hand Exposure: Yes ; Hx Alcohol Use: Yes Alcohol type: wine Hx Substance Use: No Sunscreen Use: Yes Review of Systems Review of Systems: All systems reviewed & are unremarkable except as noted in HPI & below Gastrointestinal: + abdominal pain, + nausea and + vomiting Physical Exam Constitutional: + morbidly obese Eyes: PERRL, conjunctivae normal, anicteric sclerae ENMT: external ear and nose normal, oropharynx normal Neck: trachea midline, no thyromegaly Respiratory: normal respiratory effort, lungs clear to auscultation Cardiovascular: RRR, no murmur, no edema Chest (Breasts): normal inspection/palpation of breasts Gastrointestinal (Abdomen): Percussion/Palpation: + abdomen tender Tenderness noted in the epigastrium and right HQ Musculoskeletal: no cyanosis or clubbing, extremities motor strength 5/5 Skin: no rashes, warm and dry Neurologic: patellar DTR's 2+ bilat, sensation intact Psychiatric: A+Ox3, euthymic affect Lymphatic: no cervical or axillary lymphadenopathy Results & Data Vital Signs (Past 12 Hours) Vital Signs Temp Pulse Resp BP Pulse Ox 03/06/19 16:00 69 23 03/06/19 15:58 70 19 03/06/19 15:56 73 23 161/104 H 03/06/19 14:41 99.3 F 72 20 149/114 H 97 Laboratory Results 03/06/19 15:23 03/06/19 15:23 03/06/19 03/06/19 03/06/19 Range/Units 15:23 15:23 15:23 WBC (4.8-10.8) K/uL RBC (4.2-5.4) M/uL Hgb (12.0-16.0) g/dL Hct (37-47) % MCV (80-100) fL MCH (25-34) pg MCHC (32-36) g/dL RDW Std Deviation (36.4-46.3) fL RDW Coeff of Genoveva (11.5-14.5) % Plt Count (130-400) K/uL MPV (7.4-10.4) fL Immature Gran % (Auto) % Neut % (Auto) % Lymph % (Auto) % [place] % (Auto) % Eos % (Auto) % Baso % (Auto) % Immature Gran # (Auto) (0.00-0.02) K/uL Neut # (Auto) (1.4-6.5) K/uL Lymph # (Auto) (1.2-3.4) K/uL [place] # (Auto) (0.11-0.59) K/uL Eos # (Auto) (0-0.5) K/uL Baso # (Auto) (0-0.2) K/uL PT (9.0-12.0) Seconds INR (0.9-1.1) Sodium (136-145) mmol/L Potassium (3.5-5.1) mmol/L Chloride (98-107) mmol/L Carbon Dioxide (21-32) mmol/L Anion Gap (3-11) BUN (7-18) mg/dl Creatinine (0.6-1.2) mg/dl Est Cr Clr Drug Dosing ml/min Est GFR ( Amer) Est GFR (Non-Af Amer) BUN/Creatinine Ratio (10-20) Glucose (70-99) mg/dl Calcium (8.5-10.1) mg/dl Total Bilirubin (0.2-1) mg/dl AST (15-37) U/L ALT (12-78) U/L Alkaline Phosphatase (45-117) U/L Total Protein (6.4-8.2) gm/dl Albumin (3.4-5.0) gm/dl Globulin (2.5-4.0) gm/dl Albumin/Globulin Ratio (0.9-2) Lipase (73-393) U/L Urine Color Yellow Urine Appearance Clear (Clear) Urine pH 8.5 H (4.5-7.5) POC Urine pH (4.5-7.5) Ur Specific [place] 1.020 (1.000-1.030) Urine Protein 2+ H (Negative) POC Urine Protein (Negative) Urine Glucose (UA) Negative (Negative) POC Ur Glucose (UA) (Normal) Urine Ketones Negative (Negative) POC Urine Ketones (Negative) Urine Blood Trace H (Negative) POC Urine Blood (Negative) Urine Nitrite Negative (Negative) POC Urine Nitrite (Negative) Urine Bilirubin 1+ H (Negative) POC Urine Bilirubin (Negative) Urine Urobilinogen Negative (Negative) POC Urine Urobilinogen (Normal) Ur Leukocyte Esterase Negative (Negative) POC U Leukocyte Esteras (Negative) Urine RBC 0-4 (0-4) /hpf Urine WBC 0-5 (0-5) /hpf Ur Epithelial Cells 5-10 H (0-5) /lpf Urine Bacteria Negative (Negative) Urine Mucus Present A (None Prsent) Hepatitis A IgM Ab Pending Hep Bs Antigen Neg (Neg) Hep B Core IgM Ab Pending Hepatitis C Antibody Neg (Neg) 03/06/19 03/06/19 03/06/19 Range/Units 15:23 15:23 15:23 WBC (4.8-10.8) K/uL RBC (4.2-5.4) M/uL Hgb (12.0-16.0) g/dL Hct (37-47) % MCV (80-100) fL MCH (25-34) pg MCHC (32-36) g/dL RDW Std Deviation (36.4-46.3) fL RDW Coeff of Genoveva (11.5-14.5) % Plt Count (130-400) K/uL MPV (7.4-10.4) fL Immature Gran % (Auto) % Neut % (Auto) % Lymph % (Auto) % [place] % (Auto) % Eos % (Auto) % Baso % (Auto) % Immature Gran # (Auto) (0.00-0.02) K/uL Neut # (Auto) (1.4-6.5) K/uL Lymph # (Auto) (1.2-3.4) K/uL [place] # (Auto) (0.11-0.59) K/uL Eos # (Auto) (0-0.5) K/uL Baso # (Auto) (0-0.2) K/uL PT 9.9 (9.0-12.0) Seconds INR 1.0 (0.9-1.1) Sodium 141 (136-145) mmol/L Potassium 3.5 (3.5-5.1) mmol/L Chloride 106 (98-107) mmol/L Carbon Dioxide 29 (21-32) mmol/L Anion Gap 6.0 (3-11) BUN 12 (7-18) mg/dl Creatinine 0.76 (0.6-1.2) mg/dl Est Cr Clr Drug Dosing 110.6 ml/min Est GFR ( Amer) 106.0 Est GFR (Non-Af Amer) 91.5 BUN/Creatinine Ratio 15.4 (10-20) Glucose 116 H (70-99) mg/dl Calcium 9.4 (8.5-10.1) mg/dl Total Bilirubin 2.0 H (0.2-1) mg/dl AST 348 H (15-37) U/L ALT 667 H (12-78) U/L Alkaline Phosphatase 184 H (45-117) U/L Total Protein 8.3 H (6.4-8.2) gm/dl Albumin 4.0 (3.4-5.0) gm/dl Globulin 4.3 H (2.5-4.0) gm/dl Albumin/Globulin Ratio 0.9 (0.9-2) Lipase 253 (73-393) U/L Urine Color Urine Appearance (Clear) Urine pH (4.5-7.5) POC Urine pH 8 H (4.5-7.5) Ur Specific [place] (1.000-1.030) Urine Protein (Negative) POC Urine Protein 1+ H (Negative) Urine Glucose (UA) (Negative) POC Ur Glucose (UA) Normal (Normal) Urine Ketones (Negative) POC Urine Ketones Negative (Negative) Urine Blood (Negative) POC Urine Blood Negative (Negative) Urine Nitrite (Negative) POC Urine Nitrite Negative (Negative) Urine Bilirubin (Negative) POC Urine Bilirubin Negative (Negative) Urine Urobilinogen (Negative) POC Urine Urobilinogen Normal (Normal) Ur Leukocyte Esterase (Negative) POC U Leukocyte Esteras Negative (Negative) Urine RBC (0-4) /hpf Urine WBC (0-5) /hpf Ur Epithelial Cells (0-5) /lpf Urine Bacteria (Negative) Urine Mucus (None Prsent) Hepatitis A IgM Ab Hep Bs Antigen (Neg) Hep B Core IgM Ab Hepatitis C Antibody (Neg) 03/06/19 Range/Units 15:23 WBC 10.21 (4.8-10.8) K/uL RBC 5.48 H (4.2-5.4) M/uL Hgb 16.7 H (12.0-16.0) g/dL Hct 49.4 H (37-47) % MCV 90.1 (80-100) fL MCH 30.5 (25-34) pg MCHC 33.8 (32-36) g/dL RDW Std Deviation 44.4 (36.4-46.3) fL RDW Coeff of Genoveva 13.5 (11.5-14.5) % Plt Count 234 (130-400) K/uL MPV 11.3 H (7.4-10.4) fL Immature Gran % (Auto) 0.1 % Neut % (Auto) 78.6 % Lymph % (Auto) 11.1 % [place] % (Auto) 7.6 % Eos % (Auto) 2.3 % Baso % (Auto) 0.3 % Immature Gran # (Auto) 0.01 (0.00-0.02) K/uL Neut # (Auto) 8.03 H (1.4-6.5) K/uL Lymph # (Auto) 1.13 L (1.2-3.4) K/uL [place] # (Auto) 0.78 H (0.11-0.59) K/uL Eos # (Auto) 0.23 (0-0.5) K/uL Baso # (Auto) 0.03 (0-0.2) K/uL PT (9.0-12.0) Seconds INR (0.9-1.1) Sodium (136-145) mmol/L Potassium (3.5-5.1) mmol/L Chloride (98-107) mmol/L Carbon Dioxide (21-32) mmol/L Anion Gap (3-11) BUN (7-18) mg/dl Creatinine (0.6-1.2) mg/dl Est Cr Clr Drug Dosing ml/min Est GFR ( Amer) Est GFR (Non-Af Amer) BUN/Creatinine Ratio (10-20) Glucose (70-99) mg/dl Calcium (8.5-10.1) mg/dl Total Bilirubin (0.2-1) mg/dl AST (15-37) U/L ALT (12-78) U/L Alkaline Phosphatase (45-117) U/L Total Protein (6.4-8.2) gm/dl Albumin (3.4-5.0) gm/dl Globulin (2.5-4.0) gm/dl Albumin/Globulin Ratio (0.9-2) Lipase (73-393) U/L Urine Color Urine Appearance (Clear) Urine pH (4.5-7.5) POC Urine pH (4.5-7.5) Ur Specific [place] (1.000-1.030) Urine Protein (Negative) POC Urine Protein (Negative) Urine Glucose (UA) (Negative) POC Ur Glucose (UA) (Normal) Urine Ketones (Negative) POC Urine Ketones (Negative) Urine Blood (Negative) POC Urine Blood (Negative) Urine Nitrite (Negative) POC Urine Nitrite (Negative) Urine Bilirubin (Negative) POC Urine Bilirubin (Negative) Urine Urobilinogen (Negative) POC Urine Urobilinogen (Normal) Ur Leukocyte Esterase (Negative) POC U Leukocyte Esteras (Negative) Urine RBC (0-4) /hpf Urine WBC (0-5) /hpf Ur Epithelial Cells (0-5) /lpf Urine Bacteria (Negative) Urine Mucus (None Prsent) Hepatitis A IgM Ab Hep Bs Antigen (Neg) Hep B Core IgM Ab Hepatitis C Antibody (Neg) Diagnostic Findings ABDOMEN AND PELVIS CT WITH IV CONTRAST CT DOSE: 2453.49 mGy.cm HISTORY: abd, left flank pain, n/v, hx left ventr hernia TECHNIQUE: Multiaxial CT images of the abdomen and pelvis were performed following the use of intravenous contrast. A dose lowering technique was utilized adhering to the principles of ALARA. COMPARISON STUDY: None. FINDINGS: The lung bases are essentially clear. No pneumoperitoneum. No pneumatosis. No suspicious lytic are blastic osseous lesions. No fractures identified. The liver, spleen, adrenal glands, pancreas, and kidneys are unremarkable. No hydronephrosis. No retroperitoneal lymphadenopathy. A 1.2 cm exophytic lesion at the uterine fundus. This favors a fibroid. The bladder and bilateral adnexa are unremarkable. No pelvic free fluid. Colonic diverticulosis. No evidence for diverticulitis. No bowel wall thickening or obstruction. The tip the appendix is distended up to 1 cm. However, there is no surrounding inflammatory change. This could represent a normal variant. Diffuse gallbladder wall thickening with a small amount of pericholecystic fluid. Normal caliber common bile duct. IMPRESSION: 1. Diffuse gallbladder wall thickening with a small amount of pericholecystic fluid. This is nonspecific and could be due to a diffuse edematous state or acute cholecystitis. Recommend correlation for right upper quadrant pain. 2. The tip of the appendix is distended up to 1 cm. However, there is no surr ounding inflammatory change. Therefore, this does not appear to represent acute appendicitis and could represent a normal variant. One-month abdomen and pelvis CT follow-up with oral contrast is recommended to ensure stability and exclude the less likely possibility of an appendiceal lesion. 3. No evidence for bowel obstruction. CHEST CTA for PULMONARY ARTERIES CT DOSE: HISTORY: left flank and chest pain, eval PE TECHNIQUE: Multiaxial CT images of the chest were performed following the in travenous administration of contrast to evaluate the pulmonary arteries. Maximal intensity projection images were also obtained. A dose lowering technique was utilized adhering to the principles of ALARA. COMPARISON STUDY: None. FINDINGS: Normal caliber thoracic aorta with no evidence for dissection. The heart is normal in size. No pleural or pericardial effusions. No mediastinal or hilar lymphadenopathy. Normal esophagus. No suspicious lytic are blastic osseous lesions. The central airways are patent. No pneumothorax. Groundglass densities within the lungs posteriorly favor mild dependent change. A 3 mm nodule within the right lung apex on image 250. A 4 mm subpleural nodule within the right upper lobe on image 186. No focal lung consolidations. No filling defects within the pulmonary arteries to suggest pulmonary embolus. IMPRESSION: 1. No evidence for pulmonary embolus. 2. Subcentimeter nodules within the right lung with the largest measuring 4 mm as described above. Please refer to the chart below for further recommendations. Code Status & VTE Plan VTE Prophylaxis Plan VTE Prophylaxis will be ordered: Yes PG Care Time/CCT Total # of Minutes Spent Total Time Spent with Patient: Total time spent is greater than 50% in coordination of care (as documented) at patient's floor/unit and/or counseling patient:
[2019-03-06] MEDS ORDERED: MoRPHine SULFATE 4 MG/ML 1 ML CARP\\VIAL IV PRN (20:05)
[2019-03-06] MEDS ORDERED: ONDANSETRON INJ 2 MG/ML 2 ML VIAL IV PRN (20:05)
[2019-03-06] MEDS: SODIUM CHLORIDE 0.9% 1000ML 1,000 ML IV SCH (20:43)
[2019-03-06] MEDS: ACETAMINOPHEN 65 ML IV PRN (20:51)
[2019-03-06] MEDS: metroNIDAZOLE 500 MG/100 ML BAG IV SCH (21:09)
[2019-03-06] MEDS: FAMOTIDINE 20 MG in SYRINGE 3 ML IV SCH (21:11)
[2019-03-06] MEDS: NICOTINE 14 MG/24 HR PATCH TD SCH (21:14)
[2019-03-06] MEDS: LEVOFLOXACIN/D5W 500 MG/100 ML BAG IV SCH (22:10)
[2019-03-06] MEDS: HEPARIN SOD 5,000 UNIT/0.5 ML VIAL SQ SCH (22:13)
[2019-03-07] MEDS ORDERED: ONDANSETRON INJ 2 MG/ML 2 ML VIAL IV STA (00:25)
[2019-03-07] MEDS ORDERED: ALUMINUM/MAGNESIUM SUSP 18 ML, LIDOCAINE HCL VISCOUS 2% 6 ML, BARCODE IDENTIFIER 1 EA PO ONE (00:52)
[2019-03-07] MEDS ORDERED: FAMOTIDINE 20 MG in SYRINGE 3 ML IV ONE (00:55)
[2019-03-07] MEDS ORDERED: FAMOTIDINE 20 MG in SYRINGE 3 ML IV SCH (01:00)
--- NOTE | 2019-03-07 02:34 | Surgery Consultation ---
Date of Consultation March 07, 2019 Assessment & Plan (1) Acute cholecystitis: pt is a 48 year-old female who was admitted to hospital for acute cholecystitis, IMP: acute abdominal pain, acute cholecystitis, CBD stone, cholangitis? Plan, NPO, IV fluid, IV antibiotic, repeat labs in am, U/S study gallbladder, MRCP, consult GI doctor for ERCP, plan to do laparoscopic cholecystectomy +- appendectomy after ERCP on 03/08/2019, pt agrees with the plan, I answered all questions,will F/U, Thanks. (2) Nausea and vomiting: (3) Abdominal pain: History of Present Illness Attending Physician: Fidel Dotson MD Chief Complaint: Abdominal pain Primary Care Provider: Galileo Sanchez MD The patient is 48 years old female who presented to the emergency room today with chief complaints of abdominal pain. The patient [place] back to [place] on Thursday after international travel to multiple countries. The patient states that her abdominal pain started on Thursday, while she was in the flight. She is complaining of pain in the epigastric area and in the right hypochondrium. Her symptoms have been progressive for last 3 days. She has associated nausea vomiting and decreased oral intake. Today she rates it as 8 out of 10 intensity. Pain gets worse after eating food. No hematemesis. No diarrhea or constipation. No bloody stools. She denies any gallstones or any liver or pancreas problem in the past. Further work-up done the ER shows that patient possibly has acute cholecystitis with transaminitis. Surgery was notified. Patient will be admitted to the hospitalist service and gastroenterology and surgery will be consulted. I ( Barbara Acosta MD ) reviewed pt's H/P, labs, CT scan with pt, pt is still have RUQ pain, Allergies Allergy/AdvReac Type Severity Reaction Status Date / Time cephalexin Allergy Intermediate HIVES Verified 03/06/19 15:51 erythromycin base Allergy Intermediate HIVES Verified 03/06/19 15:51 nitrofurantoin Allergy Intermediate HIVES Verified 03/06/19 15:51 Penicillins Allergy Intermediate HIVES Verified 03/06/19 15:51 influenza virus vacc AdvReac Intermediate HEADACHE & Verified 03/06/19 15:51 trivalent, split MYALGIA [From Fluzone] Sulfa (Sulfonamide AdvReac Mild HEADACHES Verified 03/06/19 15:51 Antibiotics) Home Medications Home Medications Medication Instructions Recorded Confirmed Type albuterol sulfate HFA 90 2 puffs INH Q6H PRN #18 gm 12/22/18 03/06/19 Rx mcg/actuation aerosol inhaler escitalopram 20 mg tablet 20 mg PO HS #90 tab 02/16/19 03/06/19 Rx meloxicam 15 mg PO DAILY 03/06/19 03/06/19 History Past Med/Surg History Social History Preferred Language: Swedish Communication Ability: Effective 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 Beliefs That Will Affect Care: Congregational Congregational Beliefs: MANDAEN marital status: Current Living Situation: Spouse Current Living Situation Comment: special needs child at home Feels Safe at Home: Yes Smoking Status: Current every day smoker Tobacco Type: cigarettes ; Cigarettes Per Day: OCCASIONAL CIG USE ; Second Hand Exposure: Yes ; Hx Alcohol Use: Yes Alcohol type: wine Hx Substance Use: No Sunscreen Use: Yes Review of Systems Review of Systems: All systems reviewed & are unremarkable except as noted in HPI & below Gastrointestinal: + abdominal pain, + nausea and + vomiting Allergies Allergy/AdvReac Type Severity Reaction Status Date / Time cephalexin Allergy Intermediate HIVES Verified 03/06/19 15:51 erythromycin base Allergy Intermediate HIVES Verified 03/06/19 15:51 nitrofurantoin Allergy Intermediate HIVES Verified 03/06/19 15:51 Penicillins Allergy Intermediate HIVES Verified 03/06/19 15:51 influenza virus vacc AdvReac Intermediate HEADACHE & Verified 03/06/19 15:51 trivalent, split MYALGIA [From Fluzone] Sulfa (Sulfonamide AdvReac Mild HEADACHES Verified 03/06/19 15:51 Antibiotics) Home Medications Home Medications Medication Instructions Recorded Confirmed Type albuterol sulfate HFA 90 2 puffs INH Q6H PRN #18 gm 12/22/18 03/06/19 Rx mcg/actuation aerosol inhaler escitalopram 20 mg tablet 20 mg PO HS #90 tab 02/16/19 03/06/19 Rx meloxicam 15 mg PO DAILY 03/06/19 03/06/19 History Patient History Social History Preferred Language: Swedish Communication Ability: Effective 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 Beliefs That Will Affect Care: None marital status: Current Living Situation: Family Current Living Situation Comment: special needs child at home Feels Safe at Home: Yes Smoking Status: Current every day smoker Tobacco Type: cigarettes ; Cigarettes Per Day: OCCASIONAL CIG USE ; Second Hand Exposure: Yes ; Hx Alcohol Use: No Hx Substance Use: No Sunscreen Use: Yes Physical Exam Constitutional: WD/WN, vitals as above well developed and well nourished ENMT: external ear and nose normal, oropharynx normal Neck: trachea midline, no thyromegaly Respiratory: normal respiratory effort, lungs clear to auscultation normal respiratory effort Cardiovascular: RRR, no murmur, no edema Rate/Rhythm: regular rate and regular rhythm Heart Sounds: normal S1 and normal S2 Gastrointestinal (Abdomen): soft, tenderness at RUQ, no rebound pain, BS + Musculoskeletal: no cyanosis or clubbing, extremities motor strength 5/5 Skin: no rashes, warm and dry Neurologic: patellar DTR's 2+ bilat, sensation intact Psychiatric: A+Ox3, euthymic affect Orientation: alert and oriented x 3 Lymphatic: no cervical or axillary lymphadenopathy Results & Data Vital Signs (Past 12 Hours) Vital Signs Temp Pulse Pulse Resp BP BP BP 03/06/19 23:13 36.7 C 70 16 149/75 H 03/06/19 19:49 36.8 C 73 18 175/100 H 03/06/19 16:00 69 23 03/06/19 15:58 70 19 03/06/19 15:56 73 23 161/104 H 03/06/19 14:41 37.4 C 72 20 149/114 H Pulse Ox 03/06/19 23:13 94 03/06/19 19:49 94 03/06/19 16:00 03/06/19 15:58 03/06/19 15:56 03/06/19 14:41 97 Laboratory Results Abnormal lab results 03/06/19 03/06/19 03/06/19 Range/Units 15:23 15:23 15:23 RBC 5.48 H (4.2-5.4) M/uL Hgb 16.7 H (12.0-16.0) g/dL Hct 49.4 H (37-47) % MPV 11.3 H (7.4-10.4) fL Neut # (Auto) 8.03 H (1.4-6.5) K/uL Lymph # (Auto) 1.13 L (1.2-3.4) K/uL [place] # (Auto) 0.78 H (0.11-0.59) K/uL Glucose 116 H (70-99) mg/dl Total Bilirubin 2.0 H (0.2-1) mg/dl AST 348 H (15-37) U/L ALT 667 H (12-78) U/L Alkaline Phosphatase 184 H (45-117) U/L Total Protein 8.3 H (6.4-8.2) gm/dl Globulin 4.3 H (2.5-4.0) gm/dl Urine pH (4.5-7.5) POC Urine pH 8 H (4.5-7.5) Urine Protein (Negative) POC Urine Protein 1+ H (Negative) Urine Blood (Negative) Urine Bilirubin (Negative) Ur Epithelial Cells (0-5) /lpf Urine Mucus (None Prsent) 03/06/19 Range/Units 15:23 RBC (4.2-5.4) M/uL Hgb (12.0-16.0) g/dL Hct (37-47) % MPV (7.4-10.4) fL Neut # (Auto) (1.4-6.5) K/uL Lymph # (Auto) (1.2-3.4) K/uL [place] # (Auto) (0.11-0.59) K/uL Glucose (70-99) mg/dl Total Bilirubin (0.2-1) mg/dl AST (15-37) U/L ALT (12-78) U/L Alkaline Phosphatase (45-117) U/L Total Protein (6.4-8.2) gm/dl Globulin (2.5-4.0) gm/dl Urine pH 8.5 H (4.5-7.5) POC Urine pH (4.5-7.5) Urine Protein 2+ H (Negative) POC Urine Protein (Negative) Urine Blood Trace H (Negative) Urine Bilirubin 1+ H (Negative) Ur Epithelial Cells 5-10 H (0-5) /lpf Urine Mucus Present A (None Prsent) Diagnostic Findings ABDOMEN AND PELVIS CT WITH IV CONTRAST CT DOSE: 2453.49 mGy.cm HISTORY: abd, left flank pain, n/v, hx left ventr hernia TECHNIQUE: Multiaxial CT images of the abdomen and pelvis were performed following the use of intravenous contrast. A dose lowering technique was utilized adhering to the principles of ALARA. COMPARISON STUDY: None. FINDINGS: The lung bases are essentially clear. No pneumoperitoneum. No pneumatosis. No suspicious lytic are blastic osseous lesions. No fractures identified. The liver, spleen, adrenal glands, pancreas, and kidneys are unremarkable. No hydronephrosis. No retroperitoneal lymphadenopathy. A 1.2 cm exophytic lesion at the uterine fundus. This favors a fibroid. The bladder and bilateral adnexa are unremarkable. No pelvic free fluid. Colonic diverticulosis. No evidence for diverticulitis. No bowel wall thickening or obstruction. The tip the appendix is distended up to 1 cm. However, there is no surrounding inflammatory change. This could represent a normal variant. Diffuse gallbladder wall thickening with a small amount of pericholecystic fluid. Normal caliber common bile duct. IMPRESSION: 1. Diffuse gallbladder wall thickening with a small amount of pericholecystic fluid. This is nonspecific and could be due to a diffuse edematous state or acute cholecystitis. Recommend correlation for right upper quadrant pain. 2. The tip of the appendix is distended up to 1 cm. However, there is no vu rounding inflammatory change. Therefore, this does not appear to represent acute appendicitis and could represent a normal variant. One-month abdomen and pelvis CT follow-up with oral contrast is recommended to ensure stability and exclude the less likely possibility of an appendiceal lesion. 3. No evidence for bowel obstruction. (1) Nausea and vomiting Vomiting Intractability: non-intractable Vomiting type: unspecified Qualified Code(s): R11.2 - Nausea with vomiting, unspecified (2) Abdominal pain Abdominal location: generalized Qualified Code(s): R10.84 - Generalized abdominal pain
[2019-03-07] MEDS: metroNIDAZOLE 500 MG/100 ML BAG IV SCH ×3 (04:23→19:45)
[2019-03-07] MEDS: HEPARIN SOD 5,000 UNIT/0.5 ML VIAL SQ SCH ×2 (05:10→14:10)
[2019-03-07] MEDS: SODIUM CHLORIDE 0.9% 1000ML 1,000 ML IV SCH ×2 (05:20→15:43)
[2019-03-07] MEDS: ACETAMINOPHEN 65 ML IV PRN ×2 (07:36→20:44)
[2019-03-07] MEDS: NICOTINE 14 MG/24 HR PATCH TD SCH (07:38)
[2019-03-07 07:51] LABS: Hematocrit (blood only) 46.3 % (37-47); Hemoglobin 15.5 g/dL (12.0-16.0); Mean Corpuscular Hemoglobin 30.4 pg (25-34); Mean Corpuscular Hgb Conc 33.5 g/dL (32-36); Mean Corpuscular Volume 90.8 fL (80-100); Mean Platelet Volume 10.7 fL (7.4-10.4); Platelet Count 211 K/uL (130-400); RDW Coefficient of Variation 13.9 % (11.5-14.5); RDW Standard Deviation 45.8 fL (36.4-46.3); White Blood Count 10.16 K/uL (4.8-10.8)
[2019-03-07 08:20] LABS: Albumin Level 3.3 gm/dl (3.4-5.0); BUN Creatinine Ratio 12.1 (10-20); Calcium 8.7 mg/dl (8.5-10.1); Creatinine Clr Calc Pharmacy 121.5 ml/min; Est GFR (African American) 113.2; Est GFR (Non-African American) 97.7; Magnesium 2.2 mg/dl (1.8-2.4); Potassium 3.5 mmol/L (3.5-5.1)
[2019-03-07 08:25] LABS: Albumin Globulin Ratio 0.9 (0.9-2); Bilirubin Direct 0.3 mg/dl (0-0.2); Bilirubin,Total 0.7 mg/dl (0.2-1); Globulin 3.8 gm/dl (2.5-4.0); Total Protein 7.1 gm/dl (6.4-8.2)
[2019-03-07] MEDS ORDERED: INFLUENZA ADMINISTRATION CHARGE ONE (08:30)
[2019-03-07] MEDS ORDERED: INFLUENZA VIRUS QUAD VACCINE 0.5 ML SYR IM ONE (08:30)
[2019-03-07] MEDS ORDERED: SINCALIDE IV SCH (09:00)
[2019-03-07] MEDS ORDERED: SODIUM CHLORIDE 0.9% IV SCH (09:00)
--- NOTE | 2019-03-07 10:15 | Nuclear Medicine Report ---
NM hepatobiliary EF CLINICAL HISTORY: 48 years-old Female presenting with Cholecystitis. TECHNIQUE: Dynamic anterior imaging of the gallbladder was first acquired immediately following the i ntravenous administration of 5.3 mCi Tc-99m Choletec. Subsequently, dynamic delayed imaging of the ga llbladder was initiated 65 minutes after Choletec administration acquiring images every 5 minutes ove r a span of 40-60 minutes. The gallbladder ejection fraction was calculated from delayed imaging. PHARMACOLOGY: Medication: Sincalide 2.2 mcg administered IV 5 minutes prior to the start of delayed imaging as a 30 minute infusion. Oral meal: None. COMPARISON: CT from 03/06/2019. FINDINGS: Uniform hepatic tracer accumulation is shown. Prompt intrahepatic biliary excretion is seen. The gall bladder and common bile duct are visualized by 31-35 minutes. Expected radiotracer activity within sm all bowel indicates an unobstructed common duct. The gallbladder does not demonstrate a normal rate of decrease in radiotracer activity, consistent wi th abnormal contraction in response to CCK. Gallbladder ejection fraction (GBEF) measures 16%. Reference range (with Sincalide use): Unequivocally normal: Greater than 50%. Unequivocally abnormal: Less than 35%. Notably, the lower limit of normal GBEF in the setting of a lactose-free fatty-meal food supplement ( Boost shake) has been reported as > or = 33%. Liz NGO, Nnamdi DA, Natalia LR, et al. Cholecystokinin cholescintigraphy: methodology and normal rashel ues using a lactose-free fatty-meal food supplement. J Nucl Med. 2003;44:0491-1624. IMPRESSION: 1. No evidence of acute cholecystitis. Abnormal gallbladder ejection fraction consistent with chroni c cholecystitis. Electronically signed by: Galileo Hyatt M.D. 03/07/2019 10:14 AM
[2019-03-07] MEDS: FAMOTIDINE 20 MG in SYRINGE 3 ML IV SCH ×2 (10:51→20:44)
--- NOTE | 2019-03-07 14:50 | Gastrointestinal Consultation ---
Date of Consultation March 07, 2019 Assessment & Plan (1) Acute cholecystitis: Patient is a 48 yo female with possible acute cholecystitis & elevated LFTs being evaluated by general surgery. CT imaging shows possible acute cholecystitis without evidence of ductal abnormalities and LFTs are improving. -Await HIDA results -Pending results, consider an MRCP. Based on CT imaging and now normal bilirubin, it is not clear an ERCP is definitively warranted vs IOC. If MRCP positive, however, would recommend consulting with [facility] for possible ERCP. -Continue per surgical recommendations -Continue to monitor LFTs Thank you for allowing us to participate in the care of this patient. If you should have any further questions or concerns, do not hesitate to contact us. Present on Admission?: Yes Supervising Physician Co-Signing Physician Notes Agree with LAVERNE Sharp as above Abd: Soft, Tender RUQ, ND, +BS HIDA scan showed chronic cholecystitis Recommend MRCP now to evaluate for choledocholithiasis, if none noted, recommend proceeding with Lap Dannielle with IOC, but will defer to surgery team. Continue supportive care. History of Present Illness Attending Physician: Hannah Moreno MD History of Present Illness Patient is a 48 yo female who presented to the hospital with abdominal pain. Patient was out at HIDA scan during the time of my visit and will be seen by the attending GI physician later this afternoon. The patient was admitted for concerns of acute cholecystitis. She had elevated liver enzymes upon presentation. Her LFTs are improving since admission. Her total Bilirubin on admission was 2 but has now normalized to 0.3. AST was 348 and has downtrended to 196. ALT was 667 and decreased to 507. The patient's Alk phos was 184 and now is 146. She had a CT scan that showed diffused thickening of the gallbladder however it was unclear if this was acute cholecystitis. The CT indicated questionable appendiceal abnormalities as well. There were no noted biliary ductal abnormalities on this scan. Surgery has evaluated the patient and is planning for a lap dannielle tomorrow with or without an appendectomy. THey have requested GI evaluation for possible ERCP. Allergies Allergy/AdvReac Type Severity Reaction Status Date / Time cephalexin Allergy Intermediate HIVES Verified 03/06/19 15:51 erythromycin base Allergy Intermediate HIVES Verified 03/06/19 15:51 nitrofurantoin Allergy Intermediate HIVES Verified 03/06/19 15:51 Penicillins Allergy Intermediate HIVES Verified 03/06/19 15:51 influenza virus vacc AdvReac Intermediate HEADACHE & Verified 03/06/19 15:51 trivalent, split MYALGIA [From Fluzone] Sulfa (Sulfonamide AdvReac Mild HEADACHES Verified 03/06/19 15:51 Antibiotics) Home Medications Home Medications Medication Instructions Recorded Confirmed Type albuterol sulfate HFA 90 2 puffs INH Q6H PRN #18 gm 12/22/18 03/06/19 Rx mcg/actuation aerosol inhaler escitalopram 20 mg tablet 20 mg PO HS #90 tab 02/16/19 03/06/19 Rx meloxicam 15 mg PO DAILY 03/06/19 03/06/19 History Patient History Social History Preferred Language: Czech Communication Ability: Effective Manager Orange Required: No Beliefs That Will Affect Care: None marital status: Current Living Situation: Family Current Living Situation Comment: special needs child at home Feels Safe at Home: Yes Smoking Status: Current every day smoker Tobacco Type: cigarettes ; Cigarettes Per Day: OCCASIONAL CIG USE ; Second Hand Exposure: Yes ; Hx Alcohol Use: No Hx Substance Use: No Sunscreen Use: Yes Review of Systems Review of Systems: All systems reviewed & are unremarkable except as noted in HPI & below Physical Exam Physical Exam: To be completed by attending physician Constitutional: WD/WN, vitals as above Eyes: + anicteric sclerae Neck: trachea midline, no thyromegaly Respiratory: normal respiratory effort, lungs clear to auscultation Cardiovascular: RRR, no murmur, no edema Gastrointestinal (Abdomen): Inspection/Auscultation: abdomen normal to inspection; abdomen not distended Percussion/Palpation: + abdomen tender and abdomen soft; no guarding and abdomen not rigid Skin: no rashes, warm and dry Psychiatric: A+Ox3, euthymic affect Results & Data Vital Signs (Past 12 Hours) Vital Signs Temp Pulse Resp BP Pulse Ox 03/07/19 14:24 173/93 H 03/07/19 11:27 36.8 C 64 18 164/86 H 92 03/07/19 07:23 37.3 C 70 22 168/81 H 92 03/07/19 03:27 36.8 C 71 19 158/92 H 93 PG Care Time/CCT Total # of Minutes Spent Total Time Spent with Patient: Total time spent is greater than 50% in coordination of care (as documented) at patient's floor/unit and/or counseling patient:
[2019-03-07] MEDS ORDERED: LORazepam 0.5 MG/1 ML VIAL IV PRN (15:40)
--- NOTE | 2019-03-07 16:00 | Hospitalist Progress Note ---
Date of Service March 07, 2019 Assessment & Plan (1) Abdominal pain: Admit to inpatient at PCU on telemetry Vital signs every 4 hours CBC, CMP, coags in a.m. Follow-up electrolytes and replenish as needed N.p.o. for acute cholecystitis and transaminitis Trend down transaminases ERCP pending MRCP: No evidence of acute cholecystitis. Abnormal gallbladder ejection fraction consistent with chronic cholecystitis. CT abdomen pelvis shows diffuse gallbladder wall thickening with a small amount of wendy-cholecystitis fluid. The tip of the appendix is distended up to 1 cm. However there is no surrounding inflammatory changes. This may represent acute appendicitis and could represent a normal variant. No evidence of bowel obstruction. Dr. Acosta plans to proceed with laparoscopic cholecystectomy and possibly appendectomy. Hold heparin for DVT prophylaxis today and restart the next day after the procedure. DVT prophylaxis with SCDs and teds. Continue levofloxacin 500 mg IV every 24 and metronidazole 500 mg IV every 8 hours. Continue pain management and nausea management continue famotidine 20 mg IV Daily Continue IV fluid hydration since patient n.p.o. Full code Present on Admission?: Yes (2) Acute cholecystitis: As above Present on Admission?: Yes (3) Transaminitis: As above. Trend down transaminases Present on Admission?: Yes (4) Current smoker: Continue nicotine patch. Patient advised to stop smoking. They Present on Admission?: Yes (5) Depression with anxiety: Continue home dose of escitalopram 20 mg p.o. nightly Present on Admission?: Yes (6) Obstructive sleep apnea of adult: Continue home CPAP Present on Admission?: Yes (7) Hyperlipidemia: Fasting lipid panel. Present on Admission?: Yes Subjective Seen and examined at the bedside. She can tolerate some p.o. ice chips. Nausea and vomiting subsided. Patient is n.p.o. with expectation to have laparoscopic cholecystectomy and appendectomy after ERCP on 03/08/2019 for acute cholecystitis, elevated LFTs by Dr. Acosta. Agreed with the plan. Patient denies fever, chills, chest pain, shortness of breath, frequency, urgency, melena, hemoptysis, hematuria. Patient complains of mild nausea and vomiting. Review of Systems Review of Systems: All systems reviewed & are unremarkable except as noted in HPI & below Physical Exam Constitutional: WD/WN, vitals as above well developed and + obese Eyes: PERRL, conjunctivae normal, anicteric sclerae ENMT: external ear and nose normal, oropharynx normal Neck: trachea midline, no thyromegaly Respiratory: normal respiratory effort, lungs clear to auscultation Cardiovascular: RRR, no murmur, no edema Gastrointestinal (Abdomen): normal bowel sounds, soft, nontender, no hepatosplenomegaly Musculoskeletal: no cyanosis or clubbing, extremities motor strength 5/5 Skin: no rashes, warm and dry Neurologic: patellar DTR's 2+ bilat, sensation intact Lymphatic: no cervical or axillary lymphadenopathy Results & Data Vital Signs (Past 12 Hours) Vital Signs Temp Pulse Resp BP Pulse Ox 03/07/19 15:34 36.9 C 74 16 174/92 H 91 03/07/19 14:24 173/93 H 03/07/19 11:27 36.8 C 64 18 164/86 H 92 03/07/19 07:23 37.3 C 70 22 168/81 H 92 PG Care Time/CCT Total # of Minutes Spent Total Time Spent with Patient: Total time spent is greater than 50% in coordination of care (as documented) at patient's floor/unit and/or counseling patient: (1) Abdominal pain Abdominal location: generalized Qualified Code(s): R10.84 - Generalized abdominal pain
[2019-03-07] MEDS: HydrALAZINE 10 MG TAB PO PRN (16:17)
[2019-03-07] MEDS: LEVOFLOXACIN/D5W 500 MG/100 ML BAG IV SCH (21:05)
[2019-03-08] MEDS: ACETAMINOPHEN 65 ML IV PRN ×4 (00:16→20:13)
[2019-03-08] MEDS: HydrALAZINE 10 MG TAB PO PRN (00:16)
[2019-03-08 04:12] LABS: Hepatitis A Antibody IgM NON-REACTIVE (NON-REACTIVE); Hepatitis B Core Antibody IgM NON-REACTIVE (NON-REACTIVE)
[2019-03-08] MEDS: SODIUM CHLORIDE 0.9% 1000ML 1,000 ML IV SCH ×2 (04:35→22:41)
[2019-03-08] MEDS: metroNIDAZOLE 500 MG/100 ML BAG IV SCH ×2 (04:35→22:41)
[2019-03-08 06:37] LABS: Partial Thromboplastin Time 26.6 Seconds (21.0-31.0); Prothrombin Time 10.6 Seconds (9.0-12.0)
[2019-03-08 07:05] LABS: Albumin Level 3.2 gm/dl (3.4-5.0); BUN Creatinine Ratio 16.3 (10-20); Calcium 8.5 mg/dl (8.5-10.1); Est GFR (African American) 135.4; Est GFR (Non-African American) 116.8
--- NOTE | 2019-03-08 07:06 | Magnetic Resonance Report ---
Study: MRCP HISTORY: Abdominal pain COMPARISON: Hepatobiliary scan 03/07/2019. CT 03/06/2019. FINDINGS: Lung bases are clear. Liver is uniform throughout. Moderate gallbladder wall edematous change. Multiple small gallstones are present. Pancreas is uniform. Kidneys are negative for hydronephrosis. Spleen is uniform. The MRCP component of the study shows no evidence for choledocholithiasis. Biliary ductal system and pancreatic duct appear unremarkable. Nonobstructive bowel pattern. IMPRESSION: 1. Acute cholecystitis. 2. Normal caliber caliber biliary ductal system. 3. No evidence for choledocholithiasis. Electronically signed by: Les Winchester M.D. 03/08/2019 7:05 AM
[2019-03-08 07:08] LABS: Bilirubin,Total 0.6 mg/dl (0.2-1); Globulin 3.1 gm/dl (2.5-4.0); Total Protein 6.4 gm/dl (6.4-8.2)
--- NOTE | 2019-03-08 08:20 | Gastroenterology Progress Note ---
Date of Service March 08, 2019 Assessment & Plan (1) Transaminitis: (2) Acute cholecystitis: I received a GI consult ordered by Dr. Moreno (hospitalist) to evaluate pt for ERCP. Chart reviewed. I did not personally examine this patient. Pt is a 48 y/o female admitted for cholecystitis (acute vs chronic) evidenced in CT, HIDA, MRCP. LFTs up but decreasing. Lipase normal. She had already been seen by Surgery(Dr. Acosta), [facility] [place] [facility] (Kassi Lara PA-C/Dr. Mike Gottlieb). In her imaging studies, she has normal caliber CBD, MRCP w/o signs of obstructive process/choledocholithiasis. She does have gallstones. I called and discussed with Dr. Moreno. Pt doesn't have any indication for E [employer]EL ENG[employer]. I recommend continue f/u w Surgery for possible cholecystectomy. If still suspected CBD stone perhaps Surgery can perform intra op cholangiogram. Results & Data Vital Signs (Past 12 Hours) Vital Signs Temp Pulse Resp BP BP Pulse Ox 03/08/19 07:57 36.8 C 67 16 152/72 H 94 03/08/19 04:32 36.8 C 67 18 124/68 93 03/07/19 23:39 36.9 C 71 18 171/117 H 94
--- NOTE | 2019-03-08 08:35 | Hospitalist Progress Note ---
Date of Service March 08, 2019 Assessment & Plan (1) Abdominal pain: Continue admission to [facility] Vital signs every 4 hours CBC, CMP, coags in a.m. Follow-up electrolytes and replenish as needed Status post laparoscopic cholecystectomy, appendectomy and lysis of adhesions today by Dr. Acosta Patient continue clear liquids. Monitor CBC Full code (2) Acute cholecystitis: As above (3) Transaminitis: As above. Trend down transaminases (4) Current smoker: Continue nicotine patch. Patient advised to stop smoking. They (5) Depression with anxiety: Continue home dose of escitalopram 20 mg p.o. nightly (6) Obstructive sleep apnea of adult: Continue home CPAP (7) Hyperlipidemia: Fasting lipid panel. Subjective Patient seen and examined at the bedside. Patient underwent laparoscopic cholecystectomy, appendectomy and lysis of adhesions today by Dr. Acosta. Tolerated procedure very well. Patient does not complain of any pain anymore. Nausea and vomiting subsided.Patient denies fever, chills, chest pain, shortness of breath, frequency, urgency, melena, hemoptysis, hematuria. Patient complains of mild nausea and vomiting. Review of Systems Review of Systems: All systems reviewed & are unremarkable except as noted in HPI & below Physical Exam Constitutional: WD/WN, vitals as above well developed and + obese Eyes: PERRL, conjunctivae normal, anicteric sclerae ENMT: external ear and nose normal, oropharynx normal Neck: trachea midline, no thyromegaly Respiratory: normal respiratory effort, lungs clear to auscultation Cardiovascular: RRR, no murmur, no edema Gastrointestinal (Abdomen): normal bowel sounds, soft, nontender, no hepato splenomegaly Musculoskeletal: no cyanosis or clubbing, extremities motor strength 5/5 Skin: no rashes, warm and dry Neurologic: patellar DTR's 2+ bilat, sensation intact Lymphatic: no cervical or axillary lymphadenopathy Results & Data Vital Signs (Past 12 Hours) Vital Signs Temp Pulse Resp BP BP Pulse Ox 03/08/19 07:57 36.8 C 67 16 152/72 H 94 03/08/19 04:32 36.8 C 67 18 124/68 93 03/07/19 23:39 36.9 C 71 18 171/117 H 94 PG Care Time/CCT Total # of Minutes Spent Total Time Spent with Patient: Total time spent is greater than 50% in coordination of care (as documented) at patient's floor/unit and/or counseling patient: (1) Abdominal pain Abdominal location: generalized Qualified Code(s): R10.84 - Generalized abdominal pain
[2019-03-08] MEDS: NICOTINE 14 MG/24 HR PATCH TD SCH (08:43)
[2019-03-08] MEDS: FAMOTIDINE 20 MG in SYRINGE 3 ML IV SCH ×2 (08:44→20:13)
--- NOTE | 2019-03-08 10:41 | Surgery Progress Note ---
Date of Service pt is still have some RUQ pain, pt had MRCP dx- acute cholecystitis, HIDA scan dx chronic cholecystitis, March 08, 2019 Assessment & Plan (1) Acute cholecystitis: pt is a 48 year-old female who was admitted to hospital for acute cholecystitis, IMP: acute abdominal pain, acute cholecystitis, CBD stone, cholangitis? Plan, NPO, IV fluid, IV antibiotic, repeat labs in am, U/S study gallbladder, MRCP, consult GI doctor for ERCP, plan to do laparoscopic cholecystectomy +- appendectomy after ERCP on 03/08/2019, pt agrees with the plan, I answered all questions,will F/U, Thanks. 03/08/2019 10:43AM MRCP_ acute cholecystitis, HIDA -gallbladder EF 16% chronic cholecystitis, Normal LFT today, I recommend to do laparoscopic appendectomy ( base enlarge appendix 1 cm, ), cholecystectomy, possible open or cholangiogram, D/W benefits, risks and alternatives of the surgery, the risks - infection, bleeding, injury CBD, [place], DVT, stroke, , pt understood, she agrees with the surgery, she signed consent, I answered all questions, (2) Nausea and vomiting: (3) Abdominal pain: Subjective Seen and examined at the bedside. She can tolerate some p.o. ice chips. Nausea and vomiting subsided. Patient is n.p.o. with expectation to have laparoscopic cholecystectomy and appendectomy after ERCP on 03/08/2019 for acute cholecystitis, elevated LFTs by Dr. Acosta. Agreed with the plan. Patient denies fever, chills, chest pain, shortness of breath, frequency, urgency, melena, hemoptysis, hematuria. Patient complains of mild nausea and vomiting. Physical Exam Constitutional: WD/WN, vitals as above well developed and well nourished Neck: trachea midline, no thyromegaly Respiratory: normal respiratory effort, lungs clear to auscultation normal respiratory effort Cardiovascular: RRR, no murmur, no edema Rate/Rhythm: regular rate and regular rhythm Heart Sounds: normal S1 and normal S2 Gastrointestinal (Abdomen): Percussion/Palpation: + abdomen tender and abdomen soft tenderness at RUQ, no rebound pain Musculoskeletal: no cyanosis or clubbing, extremities motor strength 5/5 Skin: no rashes, warm and dry Neurologic: awake Psychiatric: Orientation: alert and oriented x 3 Results & Data Vital Signs (Past 12 Hours) Vital Signs Temp Pulse Pulse Resp BP BP Pulse Ox 03/08/19 10:07 56 L 03/08/19 07:57 36.8 C 67 16 152/72 H 94 03/08/19 04:32 36.8 C 67 18 124/68 93 03/07/19 23:39 36.9 C 71 18 171/117 H 94 Laboratory Results Abnormal lab results 03/08/19 Range/Units 05:56 Potassium 3.0 L (3.5-5.1) mmol/L Chloride 110 H (98-107) mmol/L Creatinine 0.45 L (0.6-1.2) mg/dl AST 70 H (15-37) U/L ALT 294 H (12-78) U/L Albumin 3.2 L (3.4-5.0) gm/dl Diagnostic Findings ABDOMEN AND PELVIS CT WITH IV CONTRAST CT DOSE: 2453.49 mGy.cm HISTORY: abd, left flank pain, n/v, hx left ventr hernia TECHNIQUE: Multiaxial CT images of the abdomen and pelvis were performed following the use of intravenous contrast. A dose lowering technique was utilized adhering to the principles of ALARA. COMPARISON STUDY: None. FINDINGS: The lung bases are essentially clear. No pneumoperitoneum. No p neumatosis. No suspicious lytic are blastic osseous lesions. No fractures identified. The liver, spleen, adrenal glands, pancreas, and kidneys are unremarkable. No hydronephrosis. No retroperitoneal lymphadenopathy. A 1.2 cm exophytic lesion at the uterine fundus. This favors a fibroid. The bladder and bilateral adnexa are unremarkable. No pelvic free fluid. Colonic diverticulosis. No evidence for diverticulitis. No bowel wall thickening or obstruction. The tip the appendix is distended up to 1 cm. However, there is no surrounding inflammatory change. This could represent a normal variant. Diffuse gallbladder wall thickening with a small amount of pericholecystic fluid. Normal caliber common bile duct. IMPRESSION: 1. Diffuse gallbladder wall thickening with a small amount of pericholecystic fluid. This is nonspecific and could be due to a diffuse edematous state or acute cholecystitis. Recommend correlation for right upper quadrant pain. 2. The tip of the appendix is distended up to 1 cm. However, there is no surrounding inflammatory change. Therefore, this does not appear to represent acute appendicitis and could represent a normal variant. One-month abdomen and pelvis CT follow-up with oral contrast is recommended to ensure stability and exclude the less likely possibility of an appendiceal lesion. 3. No evidence for bowel obstruction. NM hepatobiliary EF CLINICAL HISTORY: 48 years-old Female presenting with Cholecystitis. TECHNIQUE: Dynamic anterior imaging of the gallbladder was first acquired immediately following the intravenous administration of 5.3 mCi Tc-99m Choletec. Subsequently, dynamic delayed imaging of the gallbladder was initiated 65 minutes after Choletec administration acquiring images every 5 minutes over a span of 40-60 minutes. The gallbladder ejection fraction was calculated from delayed imaging. PHARMACOLOGY: Medication: Sincalide 2.2 mcg administered IV 5 minutes prior to the start of delayed imaging as a 30 minute infusion. Oral meal: None. COMPARISON: CT from 03/06/2019. FINDINGS: Uniform hepatic tracer accumulation is shown. Prompt intrahepatic biliary excretion is seen. The gallbladder and common bile duct are visualized by 31-35 minutes. Expected radiotracer activity within small bowel indicates an unobstructed common duct. The gallbladder does not demonstrate a normal rate of decrease in radiotracer activity, consistent with abnormal contraction in response to CCK. Gallbladder ejection fraction (GBEF) measures 16%. Reference range (with Sincalide use): Unequivocally normal: Greater than 50%. Unequivocally abnormal: Less than 35%. Notably, the lower limit of normal GBEF in the setting of a lactose-free fatty- meal food supplement (Boost shake) has been reported as > or = 33%. Liz NGO, Nnamdi DA, Natalia LR, et al. Cholecystokinin cholescintigraphy: methodology and normal values using a lactose-free fatty-meal food supplement. J Nucl Med. 2003;44:3942-7035. IMPRESSION: 1. No evidence of acute cholecystitis. Abnormal gallbladder ejection fraction consistent with chronic cholecystitis. Study: MRCP HISTORY: Abdominal pain COMPARISON: Hepatobiliary scan 03/07/2019. CT 03/06/2019. FINDINGS: Lung bases are clear. Liver is uniform throughout. Moderate gallbladder wall edematous change. Multiple small gallstones are present. Pancreas is uniform. Kidneys are negative for hydronephrosis. Spleen is uniform. The MRCP component of the study shows no evidence for choledocholithiasis. Biliary ductal system and pancreatic duct appear unremarkable. Nonobstructive bowel pattern. IMPRESSION: 1. Acute cholecystitis. 2. Normal caliber caliber biliary ductal system. 3. No evidence for choledocholithiasis. (1) Nausea and vomiting Vomiting Intractability: non-intractable Vomiting type: unspecified Qualified Code(s): R11.2 - Nausea with vomiting, unspecified (2) Abdominal pain Abdominal location: generalized Qualified Code(s): R10.84 - Generalized abdominal pain
--- NOTE | 2019-03-08 10:56 | History & Physical Bridge Note ---
Date of Service March 08, 2019 History & Physical Bridge Note I have examined the patient, reviewed the History & Physical and in the interval since the performance of the History & Physical I have noted the following changes of clinical significance: no changes noted Supervising Physician Co-Signing Physician Notes Agree with LAVERNE Sharp as above Abd: Soft, Tender RUQ, ND, +BS HIDA scan showed chronic cholecystitis Recommend MRCP now to evaluate for choledocholithiasis, if none noted, recommend proceeding with Lap Dannielle with IOC, but will defer to surgery team. Continue supportive care.
[2019-03-08] MEDS ORDERED: metroNIDAZOLE 500 MG/100 ML BAG IV STA (10:57)
[2019-03-08] MEDS: POTASSIUM CHLORIDE / WTR 10 MEQ/100 ML PLCT IV SCH ×2 (11:00→12:00)
[2019-03-08] MEDS ORDERED: CIPROFLOXACIN 400 MG/200 ML BAG IV SCH (11:00)
[2019-03-08] MEDS ORDERED: LIDOCAINE HCL 1% 20 ML VIAL ONE (11:17)
[2019-03-08] MEDS ORDERED: BACITRACIN OINT 15 GM TUBE ONE (11:17)
[2019-03-08] MEDS ORDERED: BUPIVACAINE 0.5 % 5 MG/1 ML MPF 30ML VIAL ONE (11:17)
--- NOTE | 2019-03-08 11:19 | Anesthesiology Consultation ---
Date of Service March 08, 2019 Assessment & Plan (1) Encounter for pre-operative examination: Chart Review Chart Review: Acceptable Risk for Surgery and Patient NOT seen in Pre Admission Testing Consults Requested none ASA ASA2 Proposed Anesthesia Anesthesia Type: General Risk / Benefits Reviewed With: PT / POA / Parent / Guardian, Accepts Plan and Informed Consent Obtained History Surgery Operation Date: 03/08/19 11:15 Proposed Procedures p Laparoscopic Appendectomy - Barbara Acosta MD s Laparoscopic Cholecystectomy, No Cholangiogram - Barbara Acosta MD Height/Weight Height: 5 ft 8 in Weight: 108.5 kg Allergies Allergy/AdvReac Type Severity Reaction Status Date / Time cephalexin Allergy Intermediate HIVES Verified 03/06/19 15:51 erythromycin base Allergy Intermediate HIVES Verified 03/06/19 15:51 nitrofurantoin Allergy Intermediate HIVES Verified 03/06/19 15:51 Penicillins Allergy Intermediate HIVES Verified 03/06/19 15:51 influenza virus vacc AdvReac Intermediate HEADACHE & Verified 03/06/19 15:51 trivalent, split MYALGIA [From Fluzone] Sulfa (Sulfonamide AdvReac Mild HEADACHES Verified 03/06/19 15:51 Antibiotics) Medications Home Medications Medication Instructions Recorded Confirmed Last Taken albuterol sulfate HFA 90 2 puffs INH Q6H PRN #18 gm 12/22/18 03/06/19 Unknown mcg/actuation aerosol inhaler escitalopram 20 mg tablet 20 mg PO HS #90 tab 02/16/19 03/06/19 03/06/19 meloxicam 15 mg PO DAILY 03/06/19 03/06/19 03/06/19 Active Medications Generic Name Dose Route Start Last Admin Trade Name Freq PRN Reason Stop Dose Admin Heparin Sodium (Porcine) 5,000 units 03/06/19 22:00 03/07/19 14:10 Heparin Sodium (Porcine) SQ 04/05/19 21:59 Not Given Q8 FABIAN Hydralazine HCl 10 mg 03/07/19 14:22 03/08/19 00:16 Apresoline PO 04/06/19 16:59 10 mg QID PRN Administration Blood Pressure - High Sodium Chloride 1,000 mls @ 100 mls/hr 03/06/19 20:05 03/08/19 04:35 Nss 1000ml IV 04/05/19 20:04 100 mls/hr .Q10H FABIAN Administration Metronidazole 500 mg in 100 mls @ 100 mls/hr 03/06/19 20:00 03/08/19 05:35 Flagyl IV 03/16/19 19:59 Infused Q8H FABIAN Infusion Levofloxacin/Dextrose 500 mg in 100 mls @ 100 mls/hr 03/06/19 20:30 03/07/19 22:06 Levaquin/D5w IV 03/16/19 20:29 Infused Q24H FABIAN Infusion Famotidine 20 mg/ Syringe 5 mls @ 2.5 mls/min 03/06/19 21:00 03/08/19 08:44 IV 04/05/19 20:59 2.5 mls/min BID FABIAN Administration Acetaminophen 65 mls @ 200 mls/hr 03/06/19 20:45 03/08/19 10:58 Ofirmev IV 04/05/19 20:44 Infused Q4H PRN Infusion pain Potassium Chloride 10 meq in 100 mls @ 100 mls/hr 03/08/19 10:45 03/08/19 11:00 K Angel / Wtr IV 03/08/19 12:44 100 mls/hr Q1H FABIAN Administration Miscellaneous 1 ea 03/07/19 08:59 03/07/19 19:48 Remove Nicoderm Patch N/A 04/06/19 08:58 1 ea HS FABIAN Administration Morphine Sulfate 4 mg 03/06/19 20:05 03/07/19 00:08 Morphine Sulfate IV 03/20/19 20:04 4 mg Q4H PRN Administration Pain Nicotine 14 mg 03/07/19 09:00 03/08/19 08:43 Nicoderm Cq TD 04/06/19 08:59 14 mg QAM FABIAN Administration Ondansetron HCl 4 mg 03/06/19 20:05 03/06/19 20:40 Zofran IV 04/05/19 20:04 4 mg Q6H PRN Administration Nausea NPO Date Last Intake of Fluids: 03/06/19 Time Last Intake of Fluids: 10:00 Date Last Intake of Solids: 03/06/19 Time Last Intake of Solids: 10:00 Past Medical History Medical History Nausea and vomiting (Acute) Acute cholecystitis (Acute) Abdominal pain (Acute) Anxiety Hyperlipidemia Migraine HX OF Osteoarthritis Sleep apnea NO DEVICE Exercise / Class Metabolic Activity II 4-5 Yardwork/Stairs/Walk up hill Negative for chest pain or shortness of breath. Past Family History Family History Mother Diabetes Father Ulcerative colitis Grandmother (Paternal) Breast cancer Grandfather (Paternal) Colorectal cancer Past Surgical History Surgical History H/O ovarian cystectomy History of adenoidectomy History of arthroscopy LEFT KNEE History of cataract surgery RT History of colonoscopy History of tonsillectomy History of tooth extraction Past Anesthesia History No Hx of Anesthesia Complications History of PONV No Hx of PONV and No Hx of Motion Sickness Social History Smoking Status: Current every day smoker tobacco type: cigarettes Smoking cigarettes per day: OCCASIONAL CIG USE Hx Alcohol Use: No Alcohol type: wine alcohol intake frequency: a few times a month Hx Substance Use: No substance use type: does not use Review of Systems Patient denies active symptoms of GERD. Negative for chest pain or shortness of breath. Physical Exam Vital Signs Last Vital Signs Temp 36.7 C 03/08/19 11:12 Pulse 62 03/08/19 11:12 Resp 18 03/08/19 11:12 BP 163/129 H 03/08/19 11:12 Pulse Ox 96 03/08/19 11:12 Constitutional + obese ENMT Mouth: no TMJ abnormality and oral opening not small Thyromental Distance: > or= 3.5 Finger Breadths Mallampati Class: II Neck normal visual inspection; neck extension not limited Respiratory normal respiratory effort Auscultation: lungs clear to auscultation bilaterally Cardiovascular Rate/Rhythm: regular rate and regular rhythm Heart Sounds: no murmur Neurologic moves all extremities Psychiatric Orientation: alert and oriented x 3 Testing Laboratory Results 03/07/19 07:27 03/08/19 05:56 PT 10.6 Seconds (9.0-12.0) 03/08/19 05:56 INR 1.0 (0.9-1.1) 03/08/19 05:56 APTT 26.6 Seconds (21.0-31.0) 03/08/19 05:56 Urine Color Yellow 03/06/19 15:23 Urine Appearance Clear (Clear) 03/06/19 15:23 Urine pH 8.5 (4.5-7.5) H 03/06/19 15:23 Ur Specific [place] 1.020 (1.000-1.030) 03/06/19 15:23 Urine Protein 2+ (Negative) H 03/06/19 15:23 Urine Glucose (UA) Negative (Negative) 03/06/19 15: Urine Ketones Negative (Negative) 03/06/19 15: Urine Nitrite Negative (Negative) 03/06/19 15:23 Ur Leukocyte Esterase Negative (Negative) 03/06/19 15:23 Urine RBC 0-4 /hpf (0-4) 03/06/19 15:23 Urine WBC 0-5 /hpf (0-5) 03/06/19 15:23 Ur Epithelial Cells 5-10 /lpf (0-5) H 03/06/19 15:23 Electrocardiogram Date: 03/07/19 Findings: + SB @ (51) Sinus bradycardia, Possible Left atrial enlargemen,t Borderline ECG When marycarmen red with ECG of 06-MAR-2019 15:51, (unconfirmed) No significant change was found
[2019-03-08] MEDS ORDERED: NEOSTIGMINE METHYLSULFATE 5 MG/5 ML SYR ONE (11:28)
[2019-03-08] MEDS ORDERED: DEXAMETHASONE SOD INJ 4 MG/ML VIAL ONE (11:28)
[2019-03-08] MEDS ORDERED: GLYCOPYRROLATE 0.2 MG/ML VIAL ONE ×2 (11:28→13:33)
[2019-03-08] MEDS ORDERED: LIDOCAINE HCL 2% 2 ML VIAL/AMP(20MG/ML) INFIL ONE (11:28)
[2019-03-08] MEDS ORDERED: PROPOFOL IV EMULSION 10 MG/ML 20 ML VIAL IV ONE (11:28)
[2019-03-08] MEDS ORDERED: MIDAZOLAM HCL 1 MG/ML 2ML VIAL ONE (11:28)
[2019-03-08] MEDS ORDERED: ONDANSETRON INJ 2 MG/ML 2 ML VIAL ONE (11:28)
[2019-03-08] MEDS ORDERED: fentaNYL citrate 100 MCG/2 ML VIAL ONE ×2 (11:28→13:27)
[2019-03-08] MEDS ORDERED: PROMETHAZINE HCL 12.5 MG in SODIUM CHLORIDE 0.9% 50 ML IV PRN (11:53)
[2019-03-08] MEDS ORDERED: ePHEDrine sulfate 50 MG/ML AMP IV PRN (11:53)
[2019-03-08] MEDS ORDERED: ONDANSETRON INJ 2 MG/ML 2 ML VIAL IV PRN (11:53)
[2019-03-08] MEDS ORDERED: ATROPINE SULFATE 0.1 MG/ML 10ML SYR IV PRN (11:53)
[2019-03-08] MEDS ORDERED: HYDROmorphone INJ 2 MG/ML SYR/VIAL IV PRN (11:53)
[2019-03-08] MEDS ORDERED: ROCURONIUM BROMIDE 10 MG/ML 5 ML VIAL ONE (13:07)
[2019-03-08] MEDS ORDERED: LABETALOL HCL IV 5 MG/ML 20ML IV ONE (13:07)
[2019-03-08] MEDS ORDERED: ePHEDrine sulfate 50 MG/ML AMP ONE (13:14)
--- NOTE | 2019-03-08 14:01 | Post Operative Brief Note ---
Immediate Post Op Note v1 Date of Surgery March 08, 2019 Pre & Post Diagnosis Operation Date: 03/08/19 11:15 Pre-Op Diagnosis: Abdominal pain, acute cholecystitis, enlarge appendix Post-Op Diagnosis: Abdominal pain, acute cholecystitis, enlarge appendix I identified the patient and participated in the time-out.: Yes Procedure Operation Date: 03/08/19 11:15 Actual Procedures p Laparoscopic Appendectomy(Not Applicable) - Barbara Acosta MD s Laparoscopic Cholecystectomy(Not Applicable) - Barbara Acosta MD lysis of adhesion Surgeon Barbara Acosta MD Front Desk Worker surgical services coordinator Estimated Blood Loss 20 Findings Consistent with Post-Op Diagnosis enlarge appendix, acute cholecystitis, adhesion intra-abdomen Fluids 1200ml Specimens appendix, gallbladder Anesthesia Type General Complications none Disposition Accompanied Patient To Recovery: Yes Disposition: Recovery Room Overlapping Procedure I was immediately available: during the entire case.
[2019-03-08] MEDS: fentaNYL citrate 100 MCG/2 ML VIAL IV PRN ×2 (15:00→15:05)
--- NOTE | 2019-03-08 15:11 | Anesthesiology Progress Note ---
Date of Service March 08, 2019 Anesthesia Post Procedure Vital Signs Vital Signs: Temp Pulse Pulse Resp BP BP Pulse Ox 03/08/19 15:05 36.8 C 59 L 15 139/72 94 03/08/19 14:55 36.8 C 73 27 H 129/83 94 03/08/19 14:45 36.8 C 65 17 147/79 H 92 03/08/19 14:35 36.8 C 68 19 159/97 H 94 03/08/19 14:25 36.3 C L 70 18 153/92 H 94 03/08/19 14:15 36.3 C L 71 20 152/91 H 98 03/08/19 14:07 36.3 C L 76 14 141/81 H 96 03/08/19 11:12 36.7 C 62 18 163/129 H 96 03/08/19 10:07 56 L 03/08/19 07:57 36.8 C 67 16 152/72 H 94 03/08/19 04:32 36.8 C 67 18 124/68 93 03/07/19 23:39 36.9 C 71 18 171/117 H 94 03/07/19 19:52 36.9 C 71 19 154/78 H 93 03/07/19 15:34 36.9 C 74 16 174/92 H 91 Pain Intensity Abdomen: Pain Intensity: 5 Head: Pain Intensity: 4 Transfer of Care Handoff Completed per policy Notes Mental Status: alert / awake / arousable and participated in evaluation Patient Amnestic to Procedure: Yes Nausea / Vomiting: adequately controlled Pain: adequately controlled Airway Patency, RR, SpO2: stable & adequate BP & HR: stable & adequate Hydration State: stable & adequate Anesthetic Complications: no major complications apparent and Pt Satisfied with anesthetic care
--- NOTE | 2019-03-08 15:51 | Operative Report ---
DATE OF OPERATION: 03/08/2019 PREOPERATIVE DIAGNOSES: Acute cholecystitis, cholelithiasis, enlarged appendix. POSTOPERATIVE DIAGNOSES: Acute cholecystitis, cholelithiasis, enlarged appendix. OPERATION: Laparoscopic appendectomy, cholecystectomy, lysis of adhesion. SURGEON: Barbara Acosta MD. ANESTHESIA: General. ESTIMATED BLOOD LOSS: About 20 mL. FINDINGS: Enlarged appendix to the size of about 1 cm in diameter, abnormal appendix, acute cholecystitis with cholelithiasis, adhesion intraabdomen. COMPLICATIONS: None. INDICATION OF THE PROCEDURE: This is a 48-year-old female who was admitted to hospital for acute cholecystitis and also on the CT scan, I found the patient had an enlarged appendix and I recommended to do the laparoscopic appendectomy, cholecystectomy, possible open, possible cholangiogram. I did talk to the patient about the benefit, risk, alternate procedure. I indicated the risks may include but not limited to such as bleeding, infection, injury to common bile duct, myocardial infarction, DVT, stroke, even . The patient understands. She signed informed consent and I answered all questions. DETAILS OF PROCEDURE: We brought the patient to the OR, put the patient in the supine position. The patient received SCD on bilateral legs to prevent DVT. Also, patient received 400 mg of Cipro and 500 mg of Flagyl IV for prophylactic antibiotics. The patient received general anesthesia without difficulty. The abdomen was prepped and draped in routine sterile fashion. After time out, I injected local anesthesia by using 1% lidocaine mixed with 0.5% Marcaine just above the umbilicus, then I made a small incision just above the umbilicus, opened fascia and opened peritoneum under direct vision, put a [place] trocar in, connected to CO2 to create pneumoperitoneum, flow rate at 6 liter per minute, pressure not more than 14 mmHg. Once we got a nice pneumoperitoneum, we put the camera in, looked around the abdomen showing there is some adhesion scar on the right lower quadrant area. At this moment, we put another two 5 mm trocars on the left lower quadrant area. I used a Harmonic to take down the adhesion scar on the abdominal wall. Now we mobilized the cecum and found the patient had enlarged appendix to the size of about 1 cm, looked like abnormal appendix, so we used a Harmonic to take down the appendiceal and used a 45 mm Endo-AV staple for transection on the base of the appendix, rechecked the staple line, intact, no leak and no active bleeding. Now we moved onto the right upper quadrant. We put another two 5 mm trocars on the right upper quadrant and one 11 trocar on the epigastric area. Once all trocars in, then we found the patient had significant inflammation on the gallbladder wall, gallbladder wall thickening, edema showing acute cholecystitis. Then, we used a large needle to decompress the gallbladder based on significant distention of the gallbladder. Then, I used the grasper to hold the base of gallbladder, put in the direction to the diaphragm, another grasper to hold the pouch of gallbladder, pulled laterally to explore the triangle of [place]. The cystic duct was identified and mobilized. I put two 10 mm metal clips on the proximal cystic duct, one on the distal cystic duct, then used scissors transecting the cystic duct. Rechecked, no bile leak and the cystic artery was identified and mobilized. I put two 10 mm metal clips on the proximal cystic artery, one on the distal cystic artery, then used scissors for transection of cystic artery. Rechecked, no active bleeding. Then we used the Bovie to take down gallbladder from the liver bed. Rechecked and no active bleeding, no bile leak from the liver bed. Also after we took down the appendix, we removed the appendix through the catch bag and again we reinserted [place] trocar in. Once we took out the gallbladder, we inserted another catch bag and then removed gallbladder through the catch bag. Again we reinserted the [place] trocar in, connected to CO2 to create pneumoperitoneum, again looked around the abdomen, no active bleeding, no bile leak from the liver bed. Then, we removed all trocars under direct vision. No active bleeding from the trocar sites. Pneumoperitoneum was released. Then, I closed the umbilical incision, fascial layer by using #1 Vicryl [id number] x2, closed subcutaneous layer by using 2-0 Vicryl interruptedly, closed the epigastric area 11 trocar fascial layer by using #1 Vicryl [id number] x2, subQ closed by using 2-0 Vicryl, closed skin by using 4-0 Vicryl continuous running, closed all another four 5 mm trocar sites skin only by using 4-0 Vicryl. We put the dressing on. The patient tolerated the procedure well. All instrument, needle and sponge count were correct x2 at the end of the case. The patient was transferred to recovery room in stable condition. I attest to the content of the Intraoperative Record and any orders documented therein. Any exception s are noted below.
[2019-03-08] MEDS ORDERED: OXYCODONE/ACETAMINOPHEN 5mg/325mg TAB PO PRN (15:59)
[2019-03-08] MEDS ORDERED: ALBUTEROL HFA 8 GM INHALER INH PRN (15:59)
[2019-03-08] MEDS: MELOXICAM 7.5 MG TAB PO SCH (16:41)
[2019-03-08] MEDS: POTASSIUM CHLORIDE 30 MEQ in SODIUM CHLORIDE 0.9% 1000ML 1,000 ML IV SCH (16:43)
[2019-03-08] MEDS: LEVOFLOXACIN/D5W 500 MG/100 ML BAG IV SCH (19:37)
[2019-03-08] MEDS ORDERED: ESCITALOPRAM OXALATE 20 MG TAB PO SCH (21:00)
[2019-03-08 23:26] LABS: Basophils # (auto) 0.01 K/uL (0-0.2); Basophils % (auto) 0.1 %; Eosinophils # (auto) 0.01 K/uL (0-0.5); Eosinophils % (auto) 0.1 %; Hematocrit (blood only) 41.6 % (37-47); Hemoglobin 13.8 g/dL (12.0-16.0); Immature Granulocytes # (auto) 0.01 K/uL (0.00-0.02); Immature Granulocytes % (auto) 0.1 %; Lymphocytes % (auto) 7.3 %; Mean Corpuscular Hemoglobin 30.1 pg (25-34); Mean Corpuscular Hgb Conc 33.2 g/dL (32-36); Mean Corpuscular Volume 90.6 fL (80-100); Mean Platelet Volume 10.8 fL (7.4-10.4); Monocytes % (auto) 4.5 %; Neutrophils # (auto) 9.68 K/uL (1.4-6.5); Neutrophils % (auto) 87.9 %; Platelet Count 192 K/uL (130-400); RDW Coefficient of Variation 13.6 % (11.5-14.5); RDW Standard Deviation 45.2 fL (36.4-46.3); Red Blood Count 4.59 M/uL (4.2-5.4); White Blood Count 11.01 K/uL (4.8-10.8)
[2019-03-09] MEDS: HEPARIN SOD 5,000 UNIT/0.5 ML VIAL SQ SCH ×2 (03:03→14:49)
[2019-03-09 04:58] LABS: Partial Thromboplastin Ratio 0.9; Partial Thromboplastin Time 25.4 Seconds (21.0-31.0); Prothrombin Time 10.6 Seconds (9.0-12.0)
[2019-03-09 05:05] LABS: BUN Creatinine Ratio 11.1 (10-20); Calcium 8.3 mg/dl (8.5-10.1); Creatinine Clr Calc Pharmacy 149.7 ml/min; Est GFR (African American) 124.6; Est GFR (Non-African American) 107.5
[2019-03-09 05:08] LABS: Albumin Globulin Ratio 0.9 (0.9-2); Bilirubin,Total 0.4 mg/dl (0.2-1); Globulin 3.4 gm/dl (2.5-4.0); Total Protein 6.4 gm/dl (6.4-8.2)
[2019-03-09] MEDS: POTASSIUM CHLORIDE 30 MEQ in SODIUM CHLORIDE 0.9% 1000ML 1,000 ML IV SCH (05:09)
[2019-03-09 06:45] LABS: Potassium 3.8 mmol/L (3.5-5.1)
[2019-03-09] MEDS: MELOXICAM 7.5 MG TAB PO SCH (08:40)
[2019-03-09] MEDS: NICOTINE 14 MG/24 HR PATCH TD SCH (08:41)
[2019-03-09] MEDS: FAMOTIDINE 20 MG in SYRINGE 3 ML IV SCH (08:49)
--- NOTE | 2019-03-09 09:44 | Hospitalist Progress Note ---
Date of Service March 09, 2019 Assessment & Plan (1) Abdominal pain: * POD #1 s/p cholecystectomy and appendectomy with lysis of adhesions by Dr. Acosta * Advance diet as tolerated * Pain well control * D/C this afternoon (2) Acute cholecystitis: * As above (3) Transaminitis: * Resolving * AST/ALT elevated on admission * Improved AST/ALT to 34/208 today (4) Current smoker: * Continue nicotine patch. * Counseled patient on risks of smoking and encouraged smoking cessation (5) Depression with anxiety: * Continue home escitalopram 20 mg (6) Obstructive sleep apnea of adult: * Continue home CPAP (7) Hyperlipidemia: * Fasting lipid panel with elevated triglycerides 232, cholesterol 249- improved from panel Subjective Patient evaluated at bedside. She state she is feeling well, only mild abdominal discomfort at site of incision RLQ where she had a scar revision done from hernia repair in the past. Pain tolerable with tylenol, as patient would like to refrain from any morphine or oxycodone medications. States she did have BM, which was loose and had some green coloration. Tolerating liquid diet without difficulty. Feels she would like to have her diet advanced. Review of Systems Review of Systems: Constitutional: Denies weight loss, cold or heat intolerance, weakness or fatigue. HEENT: Denies headaches, lightheadedness, syncope, dysphagia. Pulmonary: Denies shortness of breath, dyspnea on exertion, pain with inspiration, cough, sputum production, or hemoptysis. Cardiovascular: Denies chest pain, palpitations, syncope, edema. GI: Mild tenderness lower right abdomen at site of surgical incision. +Loose BM with greenish color. Denies nausea, vomiting, constipation, melena, hematochezia. : Denies dysuria, discharge, itching, bleeding, hematuria, changes in frequency or urgency, flank pain. Skin: Surgical incisions from procedures yesterday. No new rashes, lesions, wounds, eczema. Physical Exam Physical Exam: Skin: Skin warm, dry, without erythema, lesion, petechiae. Normal turgor. Nails without clubbing or cyanosis. Cap refill <3 seconds. +Surgical incisions from laparoscopic cholecystectomy/appendectomy HEENT: Head normocephalic, atraumatic. Anicteric sclera. EOMI. PERRLA. Moist mucous membranes.Hearing grossly intact. Trachea midline. Swallowing intact. FROM without crepitus or tenderness. Thyroid without nodules. No carotid bruits noted on auscultation. Pulmonary:Chest without lesions or deformity. No accessory muscle usage noted. No acute distress. Lungs clear to auscultation bilaterally without wheezes, crackles, rhonchi. Cardiac: Without visible PMI. No JVD. RRR, Normal S1, S2. No murmurs, rubs, or gallops. Abdomen: Abdomen obese, soft, tender to palpation of lower abdomen in the region of right most incison. Without evidence of erythema or purulent drainage. Normoactive bowel sounds present. No hepatosplenomegaly. Neuro: CN II-XII grossly intact. Results & Data Vital Signs (Past 12 Hours) Vital Signs Temp Pulse Resp BP Pulse Ox 03/09/19 07:23 37.0 C 65 20 142/91 H 92 03/09/19 04:01 36.9 C 63 16 134/82 93 03/08/19 22:55 37 C 63 16 134/86 93 Laboratory Results 03/09/19 03/09/19 03/08/19 Range/Units 04:36 04:36 23:13 WBC 11.01 H (4.8-10.8) K/uL RBC 4.59 (4.2-5.4) M/uL Hgb 13.8 (12.0-16.0) g/dL Hct 41.6 (37-47) % MCV 90.6 (80-100) fL MCH 30.1 (25-34) pg MCHC 33.2 (32-36) g/dL RDW Std Deviation 45.2 (36.4-46.3) fL RDW Coeff of [place] 13.6 (11.5-14.5) % Plt Count 192 (130-400) K/uL MPV 10.8 H (7.4-10.4) fL Immature Gran % (Auto) 0.1 % Neut % (Auto) 87.9 % Lymph % (Auto) 7.3 % [place] % (Auto) 4.5 % Eos % (Auto) 0.1 % Baso % (Auto) 0.1 % Immature Gran # (Auto) 0.01 (0.00-0.02) K/uL Neut # (Auto) 9.68 H (1.4-6.5) K/uL Lymph # (Auto) 0.80 L (1.2-3.4) K/uL [place] # (Auto) 0.50 (0.11-0.59) K/uL Eos # (Auto) 0.01 (0-0.5) K/uL Baso # (Auto) 0.01 (0-0.2) K/uL PT 10.6 (9.0-12.0) Seconds INR 1.0 (0.9-1.1) APTT 25.4 (21.0-31.0) Seconds PTT Ratio 0.9 Sodium 142 (136-145) mmol/L Potassium 3.8 D (3.5-5.1) mmol/L Chloride 113 H (98-107) mmol/L Carbon Dioxide 26 (21-32) mmol/L Anion Gap 4.0 (3-11) BUN 6 L (7-18) mg/dl Creatinine 0.58 L (0.6-1.2) mg/dl Est Cr Clr Drug Dosing 149.7 ml/min Est GFR ( Amer) 124.6 Est GFR (Non-Af Amer) 107.5 BUN/Creatinine Ratio 11.1 (10-20) Glucose 110 H (70-99) mg/dl Calcium 8.3 L (8.5-10.1) mg/dl Total Bilirubin 0.4 (0.2-1) mg/dl AST 34 (15-37) U/L ALT 208 H (12-78) U/L Alkaline Phosphatase 97 (45-117) U/L Total Protein 6.4 (6.4-8.2) gm/dl Albumin 3.0 L (3.4-5.0) gm/dl Globulin 3.4 (2.5-4.0) gm/dl Albumin/Globulin Ratio 0.9 (0.9-2) PG Care Time/CCT Total # of Minutes Spent Total Time Spent with Patient: Total time spent is greater than 50% in coordination of care (as documented) at patient's floor/unit and/or counseling patient: (1) Abdominal pain Abdominal location: generalized Qualified Code(s): R10.84 - Generalized abdominal pain
[2019-03-09] MEDS: ACETAMINOPHEN 65 ML IV PRN (11:14)
--- NOTE | 2019-03-09 11:21 | Surgery Progress Note ---
Date of Service pt can be discharged home today, the post -op care instruction was given,keep the dressing on for 4 days, she can take a shower on 03/13/2019, no heavy lifting > 20 LBS for 4 weeks, F/U me in 1-2 weeks, March 09, 2019 Assessment & Plan (1) Acute cholecystitis: POD # 1 s/p laparoscopic cholecystectomy and appendectomy -vitals stable, afebrile - post op pain minimal and controlled, preop pain resolved - tolerating liquids, no n/v - + bowel function - t. bili and lfts improved Plan: Advance diet as tolerated to regular kosher diet Continue Tylenol prn pain encouraged ambulation and incentive possible discharge home later today Dr. Acosta to see patient this afternoon Subjective feeling better today, preoperative pain resolved mild pain at incision sites, controlled with Tylenol, wants to avoid narcotics + bowel movement and passing gas no n/v, tolerating liquids no chest pain/ sob Patient seen and examined at the bedside. Patient underwent laparoscopic cholecystectomy, appendectomy and lysis of adhesions today by Dr. Acosta. Tolerated procedure very well. Patient does not complain of any pain anymore. Nausea and vomiting subsided.Patient denies fever, chills, chest pain, shortness of breath, frequency, urgency, melena, hemoptysis, hematuria. Patient complains of mild nausea and vomiting. Physical Exam Constitutional: WD/WN, vitals as above well developed and well nourished; no acute distress ENMT: external ear and nose normal, oropharynx normal Neck: trachea midline, no thyromegaly Respiratory: normal respiratory effort, lungs clear to auscultation normal respiratory effort Cardiovascular: RRR, no murmur, no edema Rate/Rhythm: regular rate and regular rhythm Heart Sounds: normal S1 and normal S2 Gastrointestinal (Abdomen): Inspection/Auscultation: abdomen normal to inspection; abdomen not distended Percussion/Palpation: + abdomen tender and abdomen soft; no guarding and abdomen not rigid Musculoskeletal: no cyanosis or clubbing, extremities motor strength 5/5 Skin: no rashes, warm and dry + incision (covered with dry dressings) Neurologic: patellar DTR's 2+ bilat, sensation intact awake Psychiatric: A+Ox3, euthymic affect Orientation: alert and oriented x 3 Lymphatic: no cervical or axillary lymphadenopathy Results & Data Vital Signs (Past 12 Hours) Vital Signs Temp Pulse Resp BP Pulse Ox 03/09/19 07:23 37.0 C 65 20 142/91 H 92 03/09/19 04:01 36.9 C 63 16 134/82 93 Laboratory Results 03/09/19 03/09/19 03/08/19 Range/Units 04:36 04:36 23:13 WBC 11.01 H (4.8-10.8) K/uL RBC 4.59 (4.2-5.4) M/uL Hgb 13.8 (12.0-16.0) g/dL Hct 41.6 (37-47) % MCV 90.6 (80-100) fL MCH 30.1 (25-34) pg MCHC 33.2 (32-36) g/dL RDW Std Deviation 45.2 (36.4-46.3) fL RDW Coeff of Genoveva 13.6 (11.5-14.5) % Plt Count 192 (130-400) K/uL MPV 10.8 H (7.4-10.4) fL Immature Gran % (Auto) 0.1 % Neut % (Auto) 87.9 % Lymph % (Auto) 7.3 % [place] % (Auto) 4.5 % Eos % (Auto) 0.1 % Baso % (Auto) 0.1 % Immature Gran # (Auto) 0.01 (0.00-0.02) K/uL Neut # (Auto) 9.68 H (1.4-6.5) K/uL Lymph # (Auto) 0.80 L (1.2-3.4) K/uL [place] # (Auto) 0.50 (0.11-0.59) K/uL Eos # (Auto) 0.01 (0-0.5) K/uL Baso # (Auto) 0.01 (0-0.2) K/uL PT 10.6 (9.0-12.0) Seconds INR 1.0 (0.9-1.1) APTT 25.4 (21.0-31.0) Seconds PTT Ratio 0.9 Sodium 142 (136-145) mmol/L Potassium 3.8 D (3.5-5.1) mmol/L Chloride 113 H (98-107) mmol/L Carbon Dioxide 26 (21-32) mmol/L Anion Gap 4.0 (3-11) BUN 6 L (7-18) mg/dl Creatinine 0.58 L (0.6-1.2) mg/dl Est Cr Clr Drug Dosing 149.7 ml/min Est GFR ( Amer) 124.6 Est GFR (Non-Af Amer) 107.5 BUN/Creatinine Ratio 11.1 (10-20) Glucose 110 H (70-99) mg/dl Calcium 8.3 L (8.5-10.1) mg/dl Total Bilirubin 0.4 (0.2-1) mg/dl AST 34 (15-37) U/L ALT 208 H (12-78) U/L Alkaline Phosphatase 97 (45-117) U/L Total Protein 6.4 (6.4-8.2) gm/dl Albumin 3.0 L (3.4-5.0) gm/dl Globulin 3.4 (2.5-4.0) gm/dl Albumin/Globulin Ratio 0.9 (0.9-2)
--- NOTE | 2019-03-09 13:00 | Discharge Summary ---
Date of Service March 09, 2019 Admission HPI Per Admitting Provider The patient is 48 years old female who presented to the emergency room today with chief complaints of abdominal pain. The [place] to [place] on Thursday after international travel to multiple countries. The patient states that her abdominal pain started on Thursday, while she was in the flight. She is complaining of pain in the epigastric area and in the right hypochondrium. Her symptoms have been progressive for last 3 days. She has associated nausea vomiting and decreased oral intake. Today she rates it as 8 out of 10 intensity. Pain gets worse after eating food. No hematemesis. No diarrhea or constipation. No bloody stools. She denies any gallstones or any liver or pancreas problem in the past. Further work-up done the ER shows that patient possibly has acute cholecystitis with transaminitis. Surgery was notified. Patient will be admitted to the hospitalist service and gastroenterology and surgery will be consulted. Admission Exam Per Admitting Provider Constitutional: + morbidly obese Eyes: PERRL, conjunctivae normal, anicteric sclerae ENMT: external ear and nose normal, oropharynx normal Neck: trachea midline, no thyromegaly Respiratory: normal respiratory effort, lungs clear to auscultation Cardiovascular: RRR, no murmur, no edema Chest (Breasts): normal inspection/palpation of breasts Gastrointestinal (Abdomen): Percussion/Palpation: + abdomen tender Tenderness noted in the epigastrium and right HQ Musculoskeletal: no cyanosis or clubbing, extremities motor strength 5/5 Skin: no rashes, warm and dry Neurologic: patellar DTR's 2+ bilat, sensation intact Psychiatric: A+Ox3, euthymic affect Lymphatic: no cervical or axillary lymphadenopathy Principal Diagnosis Acute cholecystitis; abnormal appendix on CT scan Discharge Exam Skin: Skin warm, dry, without erythema, lesion, petechiae. Normal turgor. Nails without clubbing or cyanosis. Cap refill <3 seconds. +Surgical incisions from laparoscopic cholecystectomy/appendectomy HEENT: Head normocephalic, atraumatic. Anicteric sclera. EOMI. PERRLA. Moist mucous membranes.Hearing grossly intact. Trachea midline. Swallowing intact. FROM without crepitus or tenderness. Thyroid without nodules. No carotid bruits noted on auscultation. Pulmonary:Chest without lesions or deformity. No accessory muscle usage noted. No acute distress. Lungs clear to auscultation bilaterally without wheezes, crackles, rhonchi. Cardiac: Without visible PMI. No JVD. RRR, Normal S1, S2. No murmurs, rubs, or gallops. Abdomen: Abdomen obese, soft, tender to palpation of lower abdomen in the region of right most incision. Without evidence of erythema or purulent drainage. Normoactive bowel sounds present. No hepatosplenomegaly. Neuro: CN II-XII grossly intact. Discharge Data Allergies Allergy/AdvReac Type Severity Reaction Status Date / Time cephalexin Allergy Intermediate HIVES Verified 03/06/19 15:51 erythromycin base Allergy Intermediate HIVES Verified 03/06/19 15:51 nitrofurantoin Allergy Intermediate HIVES Verified 03/06/19 15:51 Penicillins Allergy Intermediate HIVES Verified 03/06/19 15:51 influenza virus vacc AdvReac Intermediate HEADACHE & Verified 03/06/19 15:51 trivalent, split MYALGIA [From Fluzone] Sulfa (Sulfonamide AdvReac Mild HEADACHES Verified 03/06/19 15:51 Antibiotics) Consultations 03/06/19 18:35 ED Decision to Admit Stat 03/06/19 20:05 Consult Gastroenterology Stat Consult General Surgery Stat 03/08/19 07:56 Consult Gastroenterology Routine Procedures Performed Operation Date: 03/08/19 11:15 Actual Procedures p Laparoscopic Appendectomy(Not Applicable) - Barbara Acosta MD s Laparoscopic Cholecystectomy(Not Applicable) - Barbara Acosta MD Ordered Studies 03/06/19 15:[address] WITH IV CONTRAST FINDINGS: The lung bases are essentially clear. No pneumoperitoneum. No pneumatosis. No suspicious lytic are blastic osseous lesions. No fractures identified. The liver, spleen, adrenal glands, pancreas, and kidneys are unremarkable. No hydronephrosis. No retroperitoneal lymphadenopathy. A 1.2 cm exophytic lesion at the uterine fundus. This favors a fibroid. The bladder and bilateral adnexa are unremarkable. No pelvic free fluid. Colonic diverticulosis. No evidence for diverticulitis. No bowel wall thickening or obstruction. The tip the appendix is distended up to 1 cm. However, there is no surrounding inflammatory change. This could represent a normal variant. Diffuse gallbladder wall thickening with a small amount of pericholecystic fluid. Normal caliber common bile duct. IMPRESSION: 1. Diffuse gallbladder wall thickening with a small amount of pericholecystic fluid. This is nonspecific and could be due to a diffuse edematous state or acute cholecystitis. Recommend correlation for right upper quadrant pain. 2. The tip of the appendix is distended up to 1 cm. However, there is no vu rounding inflammatory change. Therefore, this does not appear to represent acute appendicitis and could represent a normal variant. One-month abdomen and pelvis CT follow-up with oral contrast is recommended to ensure stability and exclude the less likely possibility of an appendiceal lesion. 3. No evidence for bowel obstruction. CHEST CTA for PULMONARY ARTERIES FINDINGS: Normal caliber thoracic aorta with no evidence for dissection. The heart is normal in size. No pleural or pericardial effusions. No mediastinal or hilar lymphadenopathy. Normal esophagus. No suspicious lytic are blastic osseous lesions. The central airways are patent. No pneumothorax. Groundglass densities within the lungs posteriorly favor mild dependent change. A 3 mm nodule within the right lung apex on image 250. A 4 mm subpleural nodule within the right upper lobe on image 186. No focal lung consolidations. No filling defects within the pulmonary arteries to suggest pulmonary embolus. IMPRESSION: 1. No evidence for pulmonary embolus. 2. Subcentimeter nodules within the right lung with the largest measuring 4 mm as described above. Please refer to the chart below for further recommendations. NM hepatobiliary EF FINDINGS: Uniform hepatic tracer accumulation is shown. Prompt intrahepatic biliary excretion is seen. The gallbladder and common bile duct are visualized by 31-35 minutes. Expected radiotracer activity within small bowel indicates an unobstructed common duct. The gallbladder does not demonstrate a normal rate of decrease in radiotracer activity, consistent with abnormal contraction in response to CCK. Gallbladder ejection fraction (GBEF) measures 16%. Reference range (with Sincalide use): Unequivocally normal: Greater than 50%. Unequivocally abnormal: Less than 35%. Notably, the lower limit of normal GBEF in the setting of a lactose-free fatty- meal food supplement (Boost shake) has been reported as > or = 33%. IMPRESSION: 1. No evidence of acute cholecystitis. Abnormal gallbladder ejection fraction consistent with chronic cholecystitis. MRCP 03/07 FINDINGS: Lung bases are clear. Liver is uniform throughout. Moderate gallbladder wall edematous change. Multiple small gallstones are present. Pancreas is uniform. Kidneys are negative for hydronephrosis. Spleen is uniform. The MRCP component of the study shows no evidence for choledocholithiasis. Biliary ductal system and pancreatic duct appear unremarkable. Nonobstructive bowel pattern. IMPRESSION: 1. Acute cholecystitis. 2. Normal caliber caliber biliary ductal system. 3. No evidence for choledocholithiasis. Hospital Course (1) Acute cholecystitis: * Patient presented to ER with abdominal pain as well as nausea and vomiting. AST/ALT elevated at 348/667 and alk phos 184. Tbili 2.0. * Patient with evidence of diffuse gallbladder wall thickening with small amount of pericholecystic fluid as well as distention of tip of appendix up to 1cm. Subsequent HIDA scan with reduced GB ejection fraction of 16%. MRCP with evidence of acute cholecystitis, without choledocholithiasis. * Patient underwent laparoscopic cholecystectomy as well as appendectomy and lysis of adhesions by Dr. Acosta on 03/08. Patient tolerated procedure well, abdominal pain improved. Diet tolerated and patient with bowel movements following surgery. AST/ALT almost back to baseline at 34/208 and alk phos 97 following surgery. (2) Abdominal pain: * As above, s/p cholecystectomy and appendectomy with lysis of adhesions by Dr. Acosta on 03/08 (3) Transaminitis: * AST/ALT elevated at 348/667 on admission with improvement to 34/208 on day of discharge. (4) Current smoker: * Continue nicotine patch. * Counseled patient on risks of smoking and encouraged smoking cessation * Patient found to have subcentimeter nodules within right lung with largest measuring 4mm- per [employer], optional CT at 12 months recommended (5) Depression with anxiety: * Continue home escitalopram 20 mg (6) Obstructive sleep apnea of adult: * Continue home CPAP (7) Hyperlipidemia: * Fasting lipid panel with elevated triglycerides 232, cholesterol 249- improved from previous panel Total Time Total Time Spent Total Time Spent (In Minutes): 45 Discharge Plan Discharge Items Patient Disposition: Home - Self-Care Reason For Visit: PAIN ABDOMEN Discharge Diagnosis: Acute Cholecystitis Condition on Discharge: Good Activity: As commented below Lifting Comment: No heavy lifting >20lbs for 4 weeks Non-emergency contact: Primary Care Provider Call non-emergency contact if: you have any medication questions, your pain is not controlled, your wound has increased redness and your wound has increased drainage Follow-up/Referrals: Galileo Sanchez MD [Primary Care Provider] - Diet: Low Fat Addtl Attending Provider Instructions: Per Surgery: You have been sent a prescription for levaquin (levofloxacin) for abdominal infection. Please take as prescribed and finish full course of antibiotics. You have also been given Pepcid (famotidine) as well for possible reflux and anti-histamine properties. -Keep the dressing on for 4 days. -May shower starting on 03/13/2019 -No heavy lifting > 20 LBS for 4 weeks, -Follow-up with general surgery, Nubia Grace PA-C within the next 1-2 weeks. -Office number is [phone] Call your doctor if: * Temperature above 101 degrees * Pain not relieved by pain medicine * There is increased drainage or redness from any incision * You have any unanswered questions or concerns. You have also been given a prescription for nicotine patch. -Smoking cessation is encouraged, as risk factors including female, history of oral contraceptives, prolonged immobility with frequent travel and smoking drastically increase your risk of blood clots. It is also recommended that you use compression stockings and frequently ambulate while on long distance travel to help prevent such. Please follow-up with your primary care provider within the next 3-5 days. Please report to the ER if you are having worsening abdominal pain, fever, chills, or for any signs/symptoms that are concerning for you. It has been a pleasure being part of your healthcare team during this admission. Thank you and take care! Pending Studies at Discharge: No Stand-Alone Forms: [facility], Smoking Cessation Medications and DC Order Prescriptions: New levofloxacin 500 mg Tablet 500 mg PO Q24H 7 Days Qty: 7 RF: 0 nicotine 7 mg/24 hr Patch 24 Hour 14 mg transdermal QAM 7 Days Qty: 7 RF: 0 famotidine 20 mg Tablet 20 mg PO BID 30 Days Qty: 60 RF: 0 Continued albuterol sulfate [Ventolin HFA] 90 mcg/actuation HFA aerosol inhaler 2 puffs INH Q6H PRN (Reason: shortness of breath or wheezing) Qty: 18 RF: 3 escitalopram oxalate 20 mg tablet 20 mg PO HS Qty: 90 RF: 3 meloxicam 15 mg Tablet 15 mg PO DAILY RF: 0 Discharge Orders: Discharge Order (Routine); Ordered 03/09/19 Ordered By: Claire Rosenberg/Other Patient Handouts: Surgery Prevent DVT After Admission Data Admit Date/Time: 03/06/19 18:43 Attending Provider: Oswaldo Nolasco Admit Provider: Fidel Dotson Primary Care Provider: Galileo Sanchez Other Providers: Fidel Dotson ; Mike Gottlieb ; Barbara Acosta ; Jaxon Garcia Other Interventions: Discharge Summary Assessment (RN) Last Done: 03/09/19 14:48 DC Date/Time DO NOT enter until pt leaves facility: 03/09/19 16:20 Supervising Physician Co-Signing Physician Notes Attending Attestation and Discharge Note: Pt seen/examined, chart reviewed, discharge care plan d/w PA Claire Noe. I agree w/ the mendoza components of her discharge summary. 48yo female who presented with clinical and radiographic evidence of acute cholecystitis. MRCP did not show evidence of choledocholithiasis. Underwent uncomplicated lap diane by Dr Acosta from general surgery. CT abd/pelvis showed a distended appendix and thus the appendix was removed during the operation as a precautionary measure. At time of discharge the path for the gall bladder / appendix was pending. Post-op she did well - passed stool/gas, tolerated diet. Labs/vitals were stable. Will f/u with gen surgery 1-2 weeks post-discharge. Discharge exam: gen - NAD mouth - MMM heart - RRR, s1 s2 lungs - CTA b/l abd - soft NT ND BS+ ext - no edema skin - abdominal wall incisions c/d/i Oswaldo Nolasco MD
[2019-03-09] MEDS ORDERED: FAMOTIDINE 20 MG TAB PO SCH (21:00)
[2019-03-09] MEDS ORDERED: levoFLOXacin 500 MG TAB PO SCH (22:00)
--- NOTE | 2019-04-01 08:55 | Anesthesiology Consultation ---
Date of Service April 01, 2019 Assessment & Plan (1) Encounter for pre-operative examination: Chart Review Chart Review: Acceptable Risk for Surgery and Patient NOT seen in Pre Admission Testing Consults Requested none History Surgery Operation Date: 03/08/19 11:15 Proposed Procedures p Laparoscopic Appendectomy - Barbara Acosta MD s Laparoscopic Cholecystectomy, No Cholangiogram - Barbara Acosta MD Height/Weight Height: 5 ft 8 in Weight: 108.5 kg Allergies Allergy/AdvReac Type Severity Reaction Status Date / Time cephalexin Allergy Intermediate HIVES Verified 03/06/19 15:51 erythromycin base Allergy Intermediate HIVES Verified 03/06/19 15:51 nitrofurantoin Allergy Intermediate HIVES Verified 03/06/19 15:51 Penicillins Allergy Intermediate HIVES Verified 03/06/19 15:51 influenza virus vacc AdvReac Intermediate HEADACHE & Verified 03/06/19 15:51 trivalent, split MYALGIA [From Fluzone] Sulfa (Sulfonamide AdvReac Mild HEADACHES Verified 03/06/19 15:51 Antibiotics) Medications Home Medications Medication Instructions Recorded Confirmed Last Taken escitalopram oxalate 20 mg tablet 20 mg PO HS #90 tab 02/16/19 03/10/19 03/06/19 meloxicam 15 mg PO DAILY 03/06/19 03/10/19 03/06/19 famotidine 20 mg PO BID 30 Days #60 tab 03/09/19 03/10/19 Unknown albuterol sulfate 90 mcg/actuation 2 puffs INH Q6H PRN #18 gm 03/28/19 Unknown aerosol inhaler NPO Date Last Intake of Fluids: 03/06/19 Time Last Intake of Fluids: 10:00 Date Last Intake of Solids: 03/06/19 Time Last Intake of Solids: 10:00 Past Medical History Medical History Abdominal pain (Acute) Acute cholecystitis (Acute) Anxiety Hyperlipidemia Ileum ulcer (Deleted) Migraine HX OF Nausea and vomiting (Acute) Osteoarthritis Sleep apnea NO DEVICE Past Family History Family History Mother Diabetes Father Ulcerative colitis Grandmother (Paternal) Breast cancer Grandfather (Paternal) Colorectal cancer Past Surgical History Surgical History H/O ovarian cystectomy History of adenoidectomy History of arthroscopy LEFT KNEE History of cataract surgery RT History of colonoscopy History of tonsillectomy History of tooth extraction Social History Smoking Status: Current every day smoker tobacco type: cigarettes Smoking cigarettes per day: OCCASIONAL CIG USE Hx Alcohol Use: No Alcohol type: wine alcohol intake frequency: a few times a month Hx Substance Use: No substance use type: does not use Physical Exam Vital Signs Last Vital Signs Temp 37.0 C 03/09/19 14:48 Pulse 65 03/09/19 14:48 Resp 20 03/09/19 14:48 BP 142/91 H 03/09/19 14:48 Pulse Ox 92 03/09/19 14:48 Testing Laboratory Results 03/08/19 23:13 03/09/19 04:36 PT 10.6 Seconds (9.0-12.0) 03/09/19 04:36 INR 1.0 (0.9-1.1) 03/09/19 04:36 APTT 25.4 Seconds (21.0-31.0) 03/09/19 04:36 Urine Color Yellow 03/06/19 15:23 Urine Appearance Clear (Clear) 03/06/19 15:23 Urine pH 8.5 (4.5-7.5) H 03/06/19 15:23 Ur Specific [place] 1.020 (1.000-1.030) 03/06/19 15:23 Urine Protein 2+ (Negative) H 03/06/19 15:23 Urine Glucose (UA) Negative (Negative) 03/06/19 15:23 Urine Ketones Negative (Negative) 03/06/19 15:23 Urine Nitrite Negative (Negative) 03/06/19 15:23 Ur Leukocyte Esterase Negative (Negative) 03/06/19 15:23 Urine RBC 0-4 /hpf (0-4) 03/06/19 15:23 Urine WBC 0-5 /hpf (0-5) 03/06/19 15:23 Ur Epithelial Cells 5-10 /lpf (0-5) H 03/06/19 15:23
[2019-04-01] MEDS ORDERED: ePHEDrine sulfate 50 MG/ML AMP IV PRN (08:57)
[2019-04-01] MEDS ORDERED: ATROPINE SULFATE 0.1 MG/ML 10ML SYR IV PRN (08:57)
== END 2019-03-09 16:20 | disposition home or self-care (01) | DRG 419 ==
LOC: ED 14:22 → SUATTDRO 18:43 → 2E 18:43 → 3N 03-08 14:04

== ENCOUNTER 2019-07-06 09:01 | Inpatient (IN) ==
--- NOTE | 2019-06-27 11:37 | Anesthesiology Consultation ---
Date of Service June 27, 2019 Assessment & Plan (1) Encounter for pre-operative examination: Chart Review Chart Review: Acceptable Risk for Surgery and Patient NOT seen in Pre Admission Testing Consults Requested none History Surgery Operation Date: 07/06/19 09:10 Proposed Procedures p Laparoscopic Right Hemicolectomy, Possible Open - Ken Lainez DO, FACS Height/Weight Height: 5 ft 6 in Weight: 110.223 kg Allergies Allergy/AdvReac Type Severity Reaction Status Date / Time cephalexin Allergy Intermediate HIVES Verified 06/24/19 15:11 erythromycin base Allergy Intermediate HIVES Verified 06/24/19 15:11 nitrofurantoin Allergy Intermediate HIVES Verified 06/24/19 15:11 Penicillins Allergy Intermediate HIVES Verified 06/24/19 15:11 influenza virus vacc AdvReac Intermediate HEADACHE & Verified 06/24/19 15:11 trivalent, split MYALGIA [From Fluzone] Sulfa (Sulfonamide AdvReac Mild HEADACHES Verified 06/24/19 15:11 Antibiotics) Medications Home Medications Medication Instructions Recorded Confirmed Last Taken escitalopram oxalate 20 mg tablet 20 mg PO HS #90 tab 02/16/19 06/24/19 03/06/19 albuterol sulfate 90 mcg/actuation 2 puffs INH Q6H PRN #18 gm 03/28/19 06/24/19 Unknown aerosol inhaler varenicline 1 mg tablet 1 mg PO BID #56 tab 06/18/19 06/24/19 Unknown amlodipine 5 mg PO QAM 06/24/19 06/24/19 Unknown famotidine 20 mg PO QPM 06/24/19 06/24/19 Unknown meloxicam 15 mg PO QPM 06/24/19 06/24/19 Unknown Past Medical History Medical History Anxiety Cancer APPENDIX - REMOVED Hernia High triglycerides Hypertension Obesity Osteoarthritis Sleep apnea NO DEVICE Past Family History Family History Mother Diabetes Heart disease Myocardial infarction Father Ulcerative colitis Grandmother (Paternal) Breast cancer Grandfather (Paternal) Colorectal cancer Past Surgical History Surgical History H/O ovarian cystectomy History of adenoidectomy History of arthroscopy LEFT KNEE History of cataract surgery RT History of colonoscopy History of tonsillectomy History of tooth extraction Hx of appendectomy Hx of cholecystectomy 03/08/2019: Dr. Acosta. Lap takedown of adhesions. Appendectomy. Cholecystectomy. GETA. Shaw 2. Grade 2 view. 7.5 ETT. No issues. Social History Smoking Status: Current every day smoker tobacco type: cigarettes Smoking cigarettes per day: OCCASIONAL CIG USE Hx Alcohol Use: No Alcohol type: wine alcohol intake frequency: a few times a month Hx Substance Use: No substance use type: does not use Testing Laboratory Results Laboratory Tests 06/21/19 06/21/19 12:18 12:18 WBC 7.66 Hgb 15.3 Hct 46.0 Plt Count 242 Sodium 141 Potassium 4.2 Chloride 111 H Carbon Dioxide 26 BUN 16 Creatinine 0.75 Glucose 88 Electrocardiogram Date: 03/07/19 Sinus charla. Possible LAE. HR 53. Chest X-Ray Date: 06/24/19 XR chest Pre-admission PA/Lat HISTORY: Preop. 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 FINDINGS: The lungs are clear. Cardiac silhouette is normal in size. No pleural effusions. No pneumothorax.
[~2019-07-06 09:01] MED LIST changes: +CIPROFLOXACIN 400 MG/200 ML BAG IV SCH; -ESCI1TAB10 PO; +LR 15ML/HR IV SCH; +metroNIDAZOLE 500 MG/100 ML BAG IV SCH
[2019-07-06] MEDS ORDERED: LIDOCAINE HCL 2% 2 ML VIAL/AMP(20MG/ML) INFIL ONE (10:09)
[2019-07-06] MEDS ORDERED: GLYCOPYRROLATE 0.2 MG/ML VIAL ONE (10:09)
[2019-07-06] MEDS ORDERED: DEXAMETHASONE SOD INJ 4 MG/ML VIAL ONE (10:09)
[2019-07-06] MEDS ORDERED: NEOSTIGMINE METHYLSULFATE 5 MG/5 ML SYR ONE (10:09)
[2019-07-06] MEDS ORDERED: PROPOFOL IV EMULSION 10 MG/ML 20 ML VIAL IV ONE (10:09)
[2019-07-06] MEDS ORDERED: MIDAZOLAM HCL 1 MG/ML 2ML VIAL ONE (10:09)
[2019-07-06] MEDS ORDERED: ROCURONIUM BROMIDE 10 MG/ML 5 ML VIAL ONE ×2 (10:09→13:31)
[2019-07-06] MEDS ORDERED: ONDANSETRON INJ 2 MG/ML 2 ML VIAL ONE (10:09)
[2019-07-06] MEDS ORDERED: LARYING-O-JET KIT (LTA) ONE ×2 (10:09→13:31)
[2019-07-06] MEDS ORDERED: fentaNYL citrate 100 MCG/2 ML VIAL ONE ×3 (10:09→13:34)
[2019-07-06] MEDS ORDERED: HYDROmorphone INJ 2 MG/ML SYR/VIAL ONE (10:09)
[2019-07-06] MEDS ORDERED: ATROPINE SULFATE 0.1 MG/ML 10ML SYR IV PRN (10:50)
[2019-07-06] MEDS ORDERED: LABETALOL HCL IV 5 MG/ML 20ML IV PRN (10:50)
[2019-07-06] MEDS ORDERED: HYDROmorphone INJ 1 MG/ML SYRINGE IV PRN (10:50)
[2019-07-06] MEDS ORDERED: fentaNYL citrate 100 MCG/2 ML VIAL IV PRN (10:50)
[2019-07-06] MEDS ORDERED: ONDANSETRON INJ 2 MG/ML 2 ML VIAL IV PRN ×2 (10:50→15:42)
[2019-07-06] MEDS ORDERED: ePHEDrine sulfate 50 MG/ML AMP IV PRN (10:50)
[2019-07-06] MEDS ORDERED: PROMETHAZINE HCL 12.5 MG in SODIUM CHLORIDE 0.9% 50 ML IV PRN ×2 (10:50→15:42)
--- NOTE | 2019-07-06 10:50 | History & Physical Bridge Note ---
Date of Service July 06, 2019 History & Physical Bridge Note I have examined the patient, reviewed the History & Physical and in the interval since the performance of the History & Physical I have noted the following changes of clinical significance: Started on amlodipine for hypertension last week. no other changes noted
[2019-07-06] MEDS ORDERED: BUPIVACAINE 0.5 % 5 MG/1 ML MPF 30ML VIAL ONE (10:59)
[2019-07-06] MEDS ORDERED: BUPIVACAINE LIPOSOME 1.3% 266 MG/20 ML VIAL ONE (10:59)
[2019-07-06] MEDS ORDERED: ePHEDrine sulfate 50 MG/ML SYR ONE (11:36)
[2019-07-06] MEDS ORDERED: HydrALAZINE HCL 20 MG/ML VIAL ONE (12:04)
--- NOTE | 2019-07-06 14:23 | Operative Report ---
PG Post Operative Report Pre & Post Diagnosis Operation Date: 07/06/19 10:30 Pre-Op Diagnosis: Appendiceal Carcinoma Post-Op Diagnosis: Appendiceal Carcinoma, incisional hernia I identified the patient and participated in the time-out.: Yes Procedure Operation Date: 07/06/19 10:30 Actual Procedures p Laparoscopic Right Hemicolectomy, Incisional Hernia Repair - Ken Lainez DO, MARY Surgeon Ken Lainez DO, MARY [employer] Krish Graham Estimated Blood Loss 20 Findings Consistent with Post-Op Diagnosis No evidence of metastatic disease within the abdomen. Some adhesions taken do wn. Ileocolic artery divided with good hemostasis, medial to lateral dissection performed. Colon exteriorized and resected, [id number] functional end-to-end ileocolic anastomosis performed. Mesenteric defect not closed. An incisional hernia was identified at the supraumbilical port site from prior appendectomy, this was repaired during closure the abdomen. Abdomen closed using interrupted 0 Prolene [id number] sutures. Exparel injected. Skin closed with cece. 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 Plan for laparoscopic right hemicolectomy. The risks of the procedure were discussed, all questions were answered, and the patient agreed to proceed with surgery as planned. Description of Procedure The patient was properly identified, consented, and taken to the operating room where she was placed in the supine position. General endotracheal anesthesia was induced. SCDs and a safety belt were placed. Preoperative antibiotics were administered. A Cuadra catheter was placed. The patient's abdomen was prepped and draped in the standard sterile fashion. Surgical timeout was performed and all parties were in agreement that this was the correct patient and procedure to be performed and we continued as planned. An incision was made superior to the left of the umbilicus and the Veress needle was inserted. Saline drop test confirmed entry into the peritoneum. The abdomen was insufflated with carbon dioxide which the patient tolerated without incident. The abdomen was then entered using the Optiview technique and a 5 mm trocar. The laparoscope was inserted and no damage from initial trocar or Veress needle placement was noted, no gross abnormalities were noted within the 4 quadrants of the abdomen. A 5 mm port was then placed in the lower midline, and a 12 mm port was placed in the left lower quadrant with care not to damage epigastric vessels. The patient was placed in the Trendelenburg position and rotated to the left. Some abdominal adhesions were taken down with harmonic scalpel. There was evidence of a incisional hernia at a prior port site just above the umbilicus. There were no abdominal contents herniating through at the time. The cecum was grasped and elevated towards the anterior abdominal wall. This exposed the ileocolic pedicle. Using harmonic scalpel the mesentery was scored and the ileocolic vascular pedicle was dissected circumferentially. A 45 mm galvez loaded Endo AV stapler was then used to perform high ligation of the ileocolic artery and vein. Hemostasis appeared good. We then performed a medial to lateral dissection elevating the mesentery towards the anterior abdominal wall and diss ecting the retroperitoneal structures off of the mesentery. This continued superiorly until we entered the lesser sac underlying the transverse colon. This continued laterally under the right side of the colon and distal ileum until only the white line of Toldt was tethering the colon. We then took down the hepatic flexure using the harmonic scalpel. The white line of Toldt was then taken down. At this point the colon appeared to be very mobile along with the distal ileum. It appeared that it would reach easily to the anterior abdominal wall. Laparoscopy was ceased and a midline incision was made around the umbilicus for a length of approximately 7 cm. The wound protector was placed within the wound after the fascia was opened and the colon and small bowel were exteriorized. The colon reached easily as did the small bowel. A window was created in the distal ileum and in the distal right colon and purple loaded 60 mm Endo AV staplers were used to divide the bowel. We completed the mesenteric resection using harmonic scalpel. A larger vessel was controlled with 3-0 GI silk suture ligature. The resection was completed and was then passed off the table as specimen and labeled as right hemicolectomy. We then proceeded to create the [id number] functional end-to-end ileocolic anastomosis. Enterotomies were created in the small bowel and the colon at the antimesenteric border. 60 mm purple loaded Endo AV stapler was then inserted and the anastomosis was created. A second fire with a 45 purple loaded extended the anastomosis. Staple lines and common enterotomies were then closed and excised using 60 mm purple loaded Endo AV stapler. The anastomosis appeared to be widely patent and there did not appear to be any leaks. There was good blood flow at the edge of the staple line. The staple line was then reinforced circumferentially with 3-0 silk GI Lembert sutures. The mesenteric defect was not closed. The anastomosis was then allowed to drop back into the abdomen. The abdomen was then irrigated with warm saline. The GelPort was placed and the abdomen was entered laparoscopically. The anastomosis appeared viable with no twisting of the mesentery. Hemostasis appeared good. Abdomen was irrigated. Laparoscopy was again ceased and the GelPort was removed. All the port sites were removed. The fascia was then injected with exparel. The fascia at the incisional hernia was cleared of investing tissue. The fascia was then closed with interrupted 0 Prolene [id number] sutures. The wound was irrigated and hemostasis confirmed. The umbilicus was tacked down with a 3-0 Vicryl suture. Incision was closed with interrupted 3-0 Vicryl deep dermal sutures. The fascia of the left lower quadrant 10 mm port site was closed with an 0 Vicryl suture. The wounds were closed with cece. Sterile dressing was applied. The patient was extubated in the operating room and taken to the PACU where she recovered without apparent incident. All sponge, instrument, and needle counts were correct. The patient tolerated the procedure well. The colon specimen was sent to Pathology. The physician's night assistant was present and scrubbed for the entirety of the case. He was critical in positioning the patient, prepping and draping, retraction and exposure, driving the laparoscope, resection of the colon, creation of the anastomosis, closure the incisions, and placement of the dressings. I attest to the content of the Intraoperative Record and any orders documented therein. Any exceptions are noted below.
[2019-07-06] MEDS ORDERED: ALBUTEROL HFA 8 GM INHALER INH PRN (15:42)
[2019-07-06] MEDS ORDERED: MoRPHine SULFATE 2 MG/ML CARP IV PRN (16:06)
[2019-07-06] MEDS ORDERED: MoRPHine SULFATE 4 MG/ML 1 ML CARP\\VIAL IV PRN (16:07)
--- NOTE | 2019-07-06 16:25 | Anesthesiology Progress Note ---
Date of Service July 06, 2019 Anesthesia Post Procedure Vital Signs Vital Signs: Temp Pulse Pulse Resp BP BP Pulse Ox 07/06/19 16:07 36.2 C L 74 16 131/79 94 07/06/19 15:30 36.9 C 76 15 142/76 H 97 07/06/19 15:20 72 13 162/80 H 95 07/06/19 15:05 71 14 155/87 H 95 07/06/19 14:50 36.5 C 71 14 159/90 H 94 07/06/19 14:40 82 15 130/88 97 07/06/19 14:30 71 18 158/84 H 94 07/06/19 14:20 69 14 161/93 H 94 07/06/19 14:14 36.2 C L 71 16 163/100 H 94 07/06/19 09:34 36.7 C 63 18 153/93 H 94 Transfer of Care Handoff Completed per policy Notes Mental Status: alert / awake / arousable Patient Amnestic to Procedure: Yes Nausea / Vomiting: adequately controlled Pain: adequately controlled Airway Patency, RR, SpO2: stable & adequate BP & HR: stable & adequate Hydration State: stable & adequate Anesthetic Complications: no major complications apparent
[2019-07-06] MEDS ORDERED: Nursing to Pharmacy Communication ONE (16:46)
[2019-07-06] MEDS ORDERED: NICOTINE 21 MG/24 HR TDSY TD PRN (16:56)
[2019-07-06] MEDS ORDERED: INFLUENZA ADMINISTRATION CHARGE ONE (18:00)
[2019-07-06] MEDS ORDERED: INFLUENZA VIRUS QUAD VACCINE 0.5 ML SYR IM ONE (18:00)
[2019-07-06] MEDS: LACTATED RINGER'S 1,000 ML IV SCH ×2 (18:02→23:56)
[2019-07-06] MEDS ORDERED: DiphenhydrAMINE HCL 50 MG/ML VIAL IV STA (19:39)
[2019-07-06] MEDS: KETOROLAC TROMETHAMINE 15 MG/ML VIAL IV PRN (20:30)
[2019-07-06] MEDS: AMLODIPINE BESYLATE 5 MG TAB PO SCH (20:35)
[2019-07-06] MEDS: ESCITALOPRAM OXALATE 20 MG TAB PO SCH (20:38)
[2019-07-06] MEDS: FAMOTIDINE 20 MG TAB PO SCH (20:38)
[2019-07-06] MEDS: CIPROFLOXACIN 400 MG/200 ML BAG IV SCH (20:46)
[2019-07-06] MEDS ORDERED: VARENICLINE 1 MG PO SCH (21:00)
[2019-07-06] MEDS: metroNIDAZOLE 500 MG/100 ML BAG IV SCH (21:25)
[2019-07-07] MEDS: KETOROLAC TROMETHAMINE 15 MG/ML VIAL IV PRN (03:08)
[2019-07-07] MEDS: metroNIDAZOLE 500 MG/100 ML BAG IV SCH ×2 (05:36→13:34)
[2019-07-07 06:03] LABS: Basophils # (auto) 0.01 K/uL (0-0.2); Basophils % (auto) 0.1 %; Eosinophils # (auto) 0.01 K/uL (0-0.5); Eosinophils % (auto) 0.1 %; Hematocrit (blood only) 37.5 % (37-47); Hemoglobin 12.9 g/dL (12.0-16.0); Immature Granulocytes # (auto) 0.03 K/uL (0.00-0.02); Immature Granulocytes % (auto) 0.2 %; Lymphocytes # (auto) 1.69 K/uL (1.2-3.4); Lymphocytes % (auto) 11.6 %; Mean Corpuscular Hemoglobin 31.2 pg (25-34); Mean Corpuscular Hgb Conc 34.4 g/dL (32-36); Mean Corpuscular Volume 90.6 fL (80-100); Mean Platelet Volume 10.7 fL (7.4-10.4); Monocytes # (auto) 1.38 K/uL (0.11-0.59); Monocytes % (auto) 9.5 %; Neutrophils # (auto) 11.47 K/uL (1.4-6.5); Neutrophils % (auto) 78.5 %; Platelet Count 245 K/uL (130-400); RDW Coefficient of Variation 13.7 % (11.5-14.5); RDW Standard Deviation 45.5 fL (36.4-46.3); Red Blood Count 4.14 M/uL (4.2-5.4); White Blood Count 14.59 K/uL (4.8-10.8)
[2019-07-07 06:35] LABS: BUN Creatinine Ratio 21.3 (10-20); Creatinine Clr Calc Pharmacy 143.3 ml/min; Est GFR (African American) 123.2; Est GFR (Non-African American) 106.3; Potassium 3.9 mmol/L (3.5-5.1)
[2019-07-07] MEDS ORDERED: OXYCODONE HCL IR 5 MG TAB (IMMEDIATE RELEASE) PO PRN ×2 (07:53)
--- NOTE | 2019-07-07 07:58 | Surgery Progress Note ---
Date of Service July 07, 2019 Assessment & Plan (1) Adenocarcinoma, appendix: POD 1 lap right colectomy d/c mckee decrease IVF Lovenox to start today consider advancing diet later today labs stable Supervising Physician Co-Signing Physician Notes Patient seen and examined, labs reviewed, agree with above. POD #1 laparoscopic right hemicolectomy for history of appendiceal carcinoma. Pain well controlled, tolerating clear liquids, ambulating. Afebrile with stable vitals. Abdomen with some saturation of her dressing, no evidence of infection. Labs unremarkable, hematocrit drop likely dilutional. We will continue her on clears this morning but advance her later this afternoon if she is doing well. DC Mckee, decrease IV fluids. Scheduled Toradol and scheduled oral acetaminophen. PRN oxycodone for breakthrough. Encourage ambulation. Start Lovenox today. Subjective up in chair, no nausea, walked last night, good pain control Physical Exam Gastrointestinal (Abdomen): Inspection/Auscultation: + abdominal surgical incision (dressing intact); abdomen not distended Percussion/Palpation: abdomen soft UOP 1700 overnight Results & Data Vital Signs (Past 12 Hours) Vital Signs Temp Pulse Resp BP Pulse Ox 07/07/19 07:33 37.0 C 73 16 122/75 94 07/07/19 03:12 37.2 C 73 18 134/82 92 07/06/19 23:22 37.4 C 81 18 153/84 H 90 PG Care Time/CCT Total # of Minutes Spent Total Time Spent with Patient: Total time spent is greater than 50% in coordination of care (as documented) at patient's floor/unit and/or counseling patient: Coding Level of Care Code None Diagnoses Adenocarcinoma, appendix C18.1
[2019-07-07] MEDS: LACTATED RINGER'S 1,000 ML IV SCH ×2 (08:18→22:05)
[2019-07-07] MEDS: ACETAMINOPHEN 325 MG TAB PO SCH ×4 (09:35→23:56)
[2019-07-07] MEDS: KETOROLAC TROMETHAMINE 15 MG/ML VIAL IV SCH ×3 (09:58→22:08)
[2019-07-07] MEDS: ENOXAPARIN INJ 40 MG/0.4 ML SYR SQ SCH (10:04)
[2019-07-07] MEDS: CIPROFLOXACIN 400 MG/200 ML BAG IV SCH (10:06)
--- NOTE | 2019-07-07 10:26 | Anesthesiology Progress Note ---
Date of Service July 07, 2019 Anesthesia Post Procedure Vital Signs Vital Signs: Temp Pulse Pulse Resp BP Pulse Ox 07/07/19 07:33 37.0 C 73 16 122/75 94 07/07/19 03:12 37.2 C 73 18 134/82 92 07/06/19 23:22 37.4 C 81 18 153/84 H 90 07/06/19 19:40 36.7 C 92 H 18 110/70 92 07/06/19 18:30 37.3 C 76 18 143/85 H 93 07/06/19 17:31 36.9 C 73 16 131/81 95 07/06/19 16:30 36.9 C 75 16 142/84 H 93 07/06/19 16:07 36.2 C L 74 16 131/79 94 07/06/19 15:20 72 13 162/80 H 95 07/06/19 15:05 71 14 155/87 H 95 07/06/19 14:50 36.5 C 71 14 159/90 H 94 07/06/19 14:40 82 15 130/88 97 07/06/19 14:30 71 18 158/84 H 94 07/06/19 14:20 69 14 161/93 H 94 07/06/19 14:14 36.2 C L 71 16 163/100 H 94 Notes Mental Status: alert / awake / arousable and participated in evaluation Patient Amnestic to Procedure: Yes Nausea / Vomiting: adequately controlled Pain: adequately controlled Airway Patency, RR, SpO2: stable & adequate BP & HR: stable & adequate Hydration State: stable & adequate Anesthetic Complications: no major complications apparent and Pt Satisfied with anesthetic care
[2019-07-07] MEDS: FAMOTIDINE 20 MG TAB PO SCH (22:07)
[2019-07-07] MEDS: ESCITALOPRAM OXALATE 20 MG TAB PO SCH (22:07)
[2019-07-08] MEDS: KETOROLAC TROMETHAMINE 15 MG/ML VIAL IV SCH ×4 (04:02→20:38)
[2019-07-08] MEDS: ACETAMINOPHEN 325 MG TAB PO SCH ×4 (06:22→23:30)
--- NOTE | 2019-07-08 07:33 | Surgery Progress Note ---
Date of Service July 08, 2019 Assessment & Plan (1) Adenocarcinoma, appendix: POD 2 lap right colectomy wants to stay on full liquids labs pending Supervising Physician Co-Signing Physician Notes Patient seen and examined, labs reviewed, agree with above. 48-year-old female POD #2 laparoscopic assisted right hemicolectomy and incisional hernia repair, doing well. Tolerated full liquid diet. Having bowel movements. The first few were bloody but this is getting less. Ambulating, pain well controlled. Plan to advance to low fiber diet. Likely discharge tomorrow morning. Subjective bowels moving, tolerating full liquids Physical Exam Gastrointestinal (Abdomen): Inspection/Auscultation: abdomen not distended Percussion/Palpation: abdomen soft Results & Data Vital Signs (Past 12 Hours) Vital Signs Temp Pulse Resp BP Pulse Ox 07/08/19 07:10 37.1 C 76 18 128/84 90 07/07/19 23:15 37.1 C 76 20 133/82 90 PG Care Time/CCT Total # of Minutes Spent Total Time Spent with Patient: Total time spent is greater than 50% in coordination of care (as documented) at patient's floor/unit and/or counseling patient: Coding Level of Care Code None Diagnoses Adenocarcinoma, appendix C18.1
[2019-07-08 08:14] LABS: Basophils # (auto) 0.02 K/uL (0-0.2); Basophils % (auto) 0.2 %; Eosinophils # (auto) 0.17 K/uL (0-0.5); Eosinophils % (auto) 1.5 %; Hematocrit (blood only) 33.7 % (37-47); Immature Granulocytes # (auto) 0.02 K/uL (0.00-0.02); Immature Granulocytes % (auto) 0.2 %; Lymphocytes # (auto) 1.56 K/uL (1.2-3.4); Lymphocytes % (auto) 13.5 %; Mean Corpuscular Hemoglobin 29.9 pg (25-34); Mean Corpuscular Hgb Conc 32.6 g/dL (32-36); Mean Corpuscular Volume 91.6 fL (80-100); Mean Platelet Volume 10.4 fL (7.4-10.4); Monocytes # (auto) 1.24 K/uL (0.11-0.59); Monocytes % (auto) 10.8 %; Neutrophils # (auto) 8.52 K/uL (1.4-6.5); Neutrophils % (auto) 73.8 %; Platelet Count 186 K/uL (130-400); RDW Standard Deviation 46.6 fL (36.4-46.3); Red Blood Count 3.68 M/uL (4.2-5.4); White Blood Count 11.53 K/uL (4.8-10.8)
[2019-07-08 08:48] LABS: Potassium 3.6 mmol/L (3.5-5.1)
[2019-07-08 08:49] LABS: Calcium 8.5 mg/dl (8.5-10.1); Creatinine Clr Calc Pharmacy 168.6 ml/min; Est GFR (African American) 129.9; Est GFR (Non-African American) 112.1
[2019-07-08] MEDS: AMLODIPINE BESYLATE 5 MG TAB PO SCH (09:51)
[2019-07-08] MEDS: ENOXAPARIN INJ 40 MG/0.4 ML SYR SQ SCH (09:52)
[2019-07-08] MEDS: LACTATED RINGER'S 1,000 ML IV SCH ×2 (10:26→22:12)
[2019-07-08] MEDS ORDERED: Nursing to Pharmacy Communication ONE (15:24)
[2019-07-08] MEDS: FAMOTIDINE 20 MG TAB PO SCH (20:38)
[2019-07-08] MEDS: ESCITALOPRAM OXALATE 20 MG TAB PO SCH (20:38)
[2019-07-09] MEDS: KETOROLAC TROMETHAMINE 15 MG/ML VIAL IV SCH ×2 (03:41→08:33)
[2019-07-09] MEDS: ACETAMINOPHEN 325 MG TAB PO SCH (05:31)
[2019-07-09 06:02] LABS: Basophils # (auto) 0.02 K/uL (0-0.2); Basophils % (auto) 0.2 %; Eosinophils # (auto) 0.23 K/uL (0-0.5); Eosinophils % (auto) 1.8 %; Hematocrit (blood only) 32.4 % (37-47); Hemoglobin 10.6 g/dL (12.0-16.0); Immature Granulocytes # (auto) 0.03 K/uL (0.00-0.02); Immature Granulocytes % (auto) 0.2 %; Lymphocytes # (auto) 1.73 K/uL (1.2-3.4); Lymphocytes % (auto) 13.9 %; Mean Corpuscular Hgb Conc 32.7 g/dL (32-36); Mean Corpuscular Volume 91.8 fL (80-100); Mean Platelet Volume 10.7 fL (7.4-10.4); Monocytes # (auto) 1.09 K/uL (0.11-0.59); Monocytes % (auto) 8.8 %; Neutrophils # (auto) 9.35 K/uL (1.4-6.5); Neutrophils % (auto) 75.1 %; Platelet Count 207 K/uL (130-400); RDW Standard Deviation 46.8 fL (36.4-46.3); Red Blood Count 3.53 M/uL (4.2-5.4); White Blood Count 12.45 K/uL (4.8-10.8)
--- NOTE | 2019-07-09 06:24 | Surgery Progress Note ---
Date of Service July 09, 2019 Assessment & Plan (1) H/O colectomy: awake, alert wants to go home abd- soft, having bms adv to low fiber, d/c home later today Results & Data Vital Signs (Past 12 Hours) Vital Signs Temp Pulse Resp BP Pulse Ox 07/08/19 23:42 37.4 C 74 20 137/81 93 PG Care Time/CCT Total # of Minutes Spent Total Time Spent with Patient: Total time spent is greater than 50% in coordination of care (as documented) at patient's floor/unit and/or counseling patient: Coding Level of Care Code None Diagnoses H/O colectomy Z90.49
[2019-07-09 06:34] LABS: BUN Creatinine Ratio 13.3 (10-20); Calcium 8.3 mg/dl (8.5-10.1); Creatinine Clr Calc Pharmacy 168.6 ml/min; Est GFR (African American) 129.9; Est GFR (Non-African American) 112.1; Potassium 3.4 mmol/L (3.5-5.1)
--- NOTE | 2019-07-09 08:08 | Discharge Summary ---
Date of Service July 09, 2019 Principal Diagnosis 1. Appendiceal carcinoma 2. Incisional hernia Discharge Exam Gastrointestinal (Abdomen) Inspection/Auscultation: + abdominal surgical incision (clean, dry); abdomen not distended Percussion/Palpation: abdomen soft Discharge Data Allergies Allergy/AdvReac Type Severity Reaction Status Date / Time cephalexin Allergy Intermediate HIVES Verified 07/06/19 09:31 erythromycin base Allergy Intermediate HIVES Verified 07/06/19 09:31 nitrofurantoin Allergy Intermediate HIVES Verified 07/06/19 09:31 Penicillins Allergy Intermediate HIVES Verified 07/06/19 09:31 influenza virus vacc AdvReac Intermediate HEADACHE & Verified 07/06/19 09:31 trivalent, split MYALGIA [From Fluzone] Sulfa (Sulfonamide AdvReac Mild HEADACHES Verified 07/06/19 09:31 Antibiotics) Procedures Performed Operation Date: 07/06/19 10:30 Actual Procedures p Laparoscopic Right Hemicolectomy, Incisional Hernia Repair(Right) - Ken Lainez DO, FACS Hospital Course (1) Adenocarcinoma, appendix: 48 y/o female underwent appendectomy previously and pathology returned as carcinoma. She was now taken back to the OR for laparoscopic right hemicolectomy. She did well postoperatively. By POD 2 she had multiple bowel movements. She was able to tolerate an advancing diet. She was tolerating low fiber diet and oral analgesics on day three. She was stable for discharge. Total Time Total Time Spent Total Time Spent (In Minutes): 10 Discharge Plan Discharge Items Patient Disposition: Home - Self-Care Reason For Visit: Appendiceal Carcinoma Discharge Diagnosis: right hemicolectomy Activity: Per Instructions section Lifting: No more than 10 pounds Bathing Comment: may shower; no soaking in tubs Exercise/Sports: Wait until after follow-up appointment Driving/Machine Use: Resume 3 days after discharge Non-emergency contact: Surgeon Call non-emergency contact if: you have any medication questions, your symptoms worsen, your pain is not controlled, your pain is worsening, your pain is unusual for you, you have a fever, your temperature is above 101.5, your wound has increased redness, your wound has increased drainage and your wound pain has increased Follow-up/Referrals: Galileo Sanchez MD [Primary Care Provider] - (We will call on Thursday to make appointment and call patient with time and date) Ken Lainez, MARY HADDAD [Physician] - (Please call to schedule follow up in clinic within 2 weeks We will make follow up appointment on Thursday and call patient with date and time. ) Diet: Low Fiber Addtl Attending Provider Instructions: You may take Tylenol over the counter for pain control in addition to your Oxycodone. You may take 650mg orally every 6 hours as needed for pain. Do not exceed 3grams of Tylenol within a 24 hour time period. Pending Studies at Discharge: Yes Studies:: surgical pathology Stand-Alone Forms: My [facility] Medications and DC Order Prescriptions: New oxycodone 5 mg tablet 5 - 10 mg PO .every 4-6 hours PRN (Reason: pain, for initial therapy, max 6 tabs per day) Qty: 15 RF: 0 Continued escitalopram oxalate 20 mg tablet 20 mg PO HS Qty: 90 RF: 3 albuterol sulfate [Ventolin HFA] 90 mcg/actuation HFA aerosol inhaler 2 puffs INH Q6H PRN (Reason: shortness of breath or wheezing) Qty: 18 RF: 3 Chantix Continuing Month Box 1 mg tablet 1 mg PO BID Qty: 56 RF: 0 meloxicam 15 mg tablet 15 mg PO QPM RF: 0 amlodipine 5 mg tablet 5 mg PO QAM RF: 0 famotidine 20 mg tablet 20 mg PO QPM RF: 0 Discharge Orders: Discharge Order (Routine); Ordered 07/09/19 Ordered By: Samir Gonzalez Admission Data Admit Date/Time: 07/06/19 14:14 Attending Provider: Ken Lainez Admit Provider: Ken Lainez Primary Care Provider: Galileo Sanchez Coding Level of Care Code D/C Day Management <30 mins Diagnoses Adenocarcinoma, appendix C18.1
[2019-07-09] MEDS: AMLODIPINE BESYLATE 5 MG TAB PO SCH (08:31)
[2019-07-09] MEDS: ENOXAPARIN INJ 40 MG/0.4 ML SYR SQ SCH (08:31)
== END 2019-07-09 11:01 | disposition home or self-care (01) | DRG 330 ==
LOC: ASU 09:01 → 3N 14:14

== ENCOUNTER 2019-08-24 07:00 | Observation (INO) ==
--- NOTE | 2019-08-22 09:37 | Anesthesiology Consultation ---
Date of Service August 22, 2019 Assessment & Plan (1) Encounter for pre-operative examination: Chart Review Chart Review: Acceptable Risk for Surgery (pending CBC DOS ) and Patient NOT seen in Pre Admission Testing Mild leukocytosis and anemia noted with preop labs- labs done s/p hemicolectomy- will recheck AM of surgery - Check test AM DOS Seen by PCP 07/15/19= Seen for hospital follow up after right hemicolectomy for staging appendiceal cancer (s/p lap appe 02/2019) with incisional hernia repair (07/06/19). Pt clinically doing well. Pathology showed no evidence of metastatic or localized disease. Pt to follow up with general surgery and oncology. Once recovered, apparently planning FOLFOX every 2 weeks x 12. HTN- continue current meds. Lap right hemicolectomy 07/06/19= GA- Grade 2-3 view with MAC #3 and ETT # 7.5. Atraumatic. No noted anesthesia issues per record. History Surgery Operation Date: 08/24/19 08:20 Proposed Procedures p Open Incisional Hernia Repair, Possible Laparoscopy - Ken Lainez, , FACS Height/Weight Height: 5 ft 7 in Weight: 110.223 kg Allergies Allergy/AdvReac Type Severity Reaction Status Date / Time cephalexin Allergy Intermediate HIVES Verified 08/24/19 07:37 erythromycin base Allergy Intermediate HIVES Verified 08/24/19 07:37 nitrofurantoin Allergy Intermediate HIVES Verified 08/24/19 07:37 Penicillins Allergy Intermediate HIVES Verified 08/24/19 07:37 influenza virus vacc AdvReac Intermediate HEADACHE & Verified 08/24/19 07:37 trivalent, split MYALGIA [From Fluzone] Sulfa (Sulfonamide AdvReac Mild HEADACHES Verified 08/24/19 07:37 Antibiotics) Medications Home Medications Medication Instructions Recorded Confirmed Last Taken escitalopram oxalate 20 mg tablet 20 mg PO HS #90 tab 02/16/19 08/24/19 08/23/19 21:30 albuterol sulfate 90 mcg/actuation 2 puffs INH Q6H PRN #18 gm 03/28/19 08/24/19 Unknown aerosol inhaler amlodipine 5 mg PO PM 06/24/19 08/24/19 08/23/19 21:30 famotidine 20 mg PO QPM 06/24/19 08/24/1908/22/20 21:30 meloxicam 15 mg PO QPM 06/24/19 08/24/19 08/23/19 21:30 varenicline 1 mg tablet 1 mg PO BID #56 tab 08/04/19 08/24/19 Unknown Past Medical History Medical History Adenocarcinoma, 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 Anxiety Hernia High triglycerides Hypertension Migraine HX Obesity Osteoarthritis Sleep apnea NO DEVICE Past Family History Family History Mother Diabetes Heart disease Myocardial infarction Father Ulcerative colitis Grandmother (Paternal) Breast cancer Grandfather (Paternal) Colorectal cancer Denies family history of Ovarian cancer Prostate cancer Hypertension Stroke Past Surgical History Surgical History H/O ovarian cystectomy History of adenoidectomy History of arthroscopy LEFT KNEE History of cataract surgery RT History of colonoscopy History of hemicolectomy 07/06/19 History of incisional hernia repair 07/06/19 History of tonsillectomy History of tooth extraction Hx of appendectomy Hx of cholecystectomy Social History Smoking Status: Current every day smoker tobacco type: cigarettes Smoking cigarettes per day: OCCASIONAL CIG USE Hx Alcohol Use: No Alcohol type: wine alcohol intake frequency: a few times a month Hx Substance Use: No substance use type: does not use Physical Exam Vital Signs Last Vital Signs Temp 37.1 C 08/24/19 07:21 Pulse 66 08/24/19 07:21 Resp 20 08/24/19 07:21 BP 155/94 H 08/24/19 07:21 Pulse Ox 94 08/24/19 07:21 Testing Laboratory Results 08/24/19 07:17 07/09/19= WBC: 12.45 (s/p hemicolectomy) H/H: 10.6/32.4 (s/p hemicolectomy) PLATELETS: 207 SODIUM: 139 POTASSIUM: 3.4 CHLORIDE: 110 CO2: 25 BUN: 7 CREATININE: 0.51 GLUCOSE: 103 Electrocardiogram Date: 03/07/19 Findings: + SB @ (53) Possible LAE. Chest X-Ray Date: 06/24/19 Findings: + NAD
[~2019-08-24 07:00] MED LIST changes: -CIPROFLOXACIN 400 MG/200 ML BAG IV SCH; +CLINDAMYCIN 900 MG in DEXTROSE 5% 50 ML IV SCH; -metroNIDAZOLE 500 MG/100 ML BAG IV SCH
[2019-08-24 07:27] LABS: Basophils # (auto) 0.03 K/uL (0-0.2); Basophils % (auto) 0.3 %; Eosinophils # (auto) 0.47 K/uL (0-0.5); Eosinophils % (auto) 4.3 %; Hematocrit (blood only) 43.1 % (37-47); Hemoglobin 13.9 g/dL (12.0-16.0); Immature Granulocytes # (auto) 0.02 K/uL (0.00-0.02); Immature Granulocytes % (auto) 0.2 %; Lymphocytes # (auto) 3.12 K/uL (1.2-3.4); Lymphocytes % (auto) 28.7 %; Mean Corpuscular Hemoglobin 28.8 pg (25-34); Mean Corpuscular Volume 89.2 fL (80-100); Mean Platelet Volume 10.8 fL (7.4-10.4); Monocytes # (auto) 0.94 K/uL (0.11-0.59); Monocytes % (auto) 8.6 %; Neutrophils # (auto) 6.31 K/uL (1.4-6.5); Neutrophils % (auto) 57.9 %; Platelet Count 308 K/uL (130-400); RDW Coefficient of Variation 13.6 % (11.5-14.5); RDW Standard Deviation 44.5 fL (36.4-46.3); Red Blood Count 4.83 M/uL (4.2-5.4); White Blood Count 10.89 K/uL (4.8-10.8)
[2019-08-24] MEDS ORDERED: MIDAZOLAM HCL 1 MG/ML 2ML VIAL ONE (07:34)
[2019-08-24] MEDS ORDERED: fentaNYL citrate 100 MCG/2 ML VIAL ONE ×2 (07:34→09:32)
[2019-08-24 07:43] LABS: Mean Corpuscular Hgb Conc 32.3 g/dL (32-36)
--- NOTE | 2019-08-24 08:13 | History & Physical Bridge Note ---
Date of Service August 24, 2019 History & Physical Bridge Note I have examined the patient, reviewed the History & Physical and in the interval since the performance of the History & Physical I have noted the following changes of clinical significance: no changes noted
[2019-08-24] MEDS ORDERED: BUPIVACAINE LIPOSOME 1.3% 266 MG/20 ML VIAL ONE (08:14)
[2019-08-24] MEDS ORDERED: BUPIVACAINE 0.5 % 5 MG/1 ML MPF 30ML VIAL ONE (08:14)
[2019-08-24] MEDS ORDERED: fentaNYL citrate 100 MCG/2 ML VIAL IV PRN (08:36)
[2019-08-24] MEDS ORDERED: HYDROmorphone INJ 2 MG/ML SYR/VIAL IV PRN (08:36)
[2019-08-24] MEDS ORDERED: ePHEDrine sulfate 50 MG/ML AMP IV PRN (08:36)
[2019-08-24] MEDS ORDERED: ONDANSETRON INJ 2 MG/ML 2 ML VIAL IV PRN ×2 (08:36→13:35)
[2019-08-24] MEDS ORDERED: METOCLOPRAMIDE HCL INJ 5 MG/ML 2 ML VIAL IV PRN (08:36)
[2019-08-24] MEDS ORDERED: ATROPINE SULFATE 0.1 MG/ML 10ML SYR IV PRN (08:36)
[2019-08-24] MEDS ORDERED: PROMETHAZINE HCL 12.5 MG in SODIUM CHLORIDE 0.9% 50 ML IV PRN (08:36)
[2019-08-24] MEDS ORDERED: ePHEDrine sulfate 50 MG/ML SYR ONE (09:31)
[2019-08-24] MEDS ORDERED: PROPOFOL IV EMULSION 10 MG/ML 20 ML VIAL IV ONE (09:31)
[2019-08-24] MEDS ORDERED: ONDANSETRON INJ 2 MG/ML 2 ML VIAL ONE (09:31)
[2019-08-24] MEDS ORDERED: ROCURONIUM BROMIDE 10 MG/ML 5 ML VIAL ONE (09:31)
[2019-08-24] MEDS ORDERED: LIDOCAINE HCL 2% 2 ML VIAL/AMP(20MG/ML) INFIL ONE (09:31)
[2019-08-24] MEDS ORDERED: DEXAMETHASONE SOD INJ 4 MG/ML VIAL ONE (09:31)
[2019-08-24] MEDS ORDERED: GLYCOPYRROLATE 0.2 MG/ML VIAL ONE (09:31)
[2019-08-24] MEDS ORDERED: NEOSTIGMINE METHYLSULFATE 5 MG/5 ML SYR ONE (09:31)
[2019-08-24] MEDS ORDERED: LARYING-O-JET KIT (LTA) ONE (10:42)
[2019-08-24] MEDS ORDERED: KETOROLAC 30 MG/ML VIAL ONE (11:42)
--- NOTE | 2019-08-24 11:59 | Operative Report ---
PG Post Operative Report Pre & Post Diagnosis Operation Date: 08/24/19 08:20 Pre-Op Diagnosis: Incarcerated Incisional Hernia Post-Op Diagnosis: Incarcerated Incisional Hernia I identified the patient and participated in the time-out.: Yes Procedure Operation Date: 08/24/19 08:20 Actual Procedures p Open Incarcerated Incisional Hernia Repair with Mesh with Component Separation(Not Applicable) - Ken Lainez DO, MARY Surgeon Ken Lainez DO, MARY Kiln Repairer Barbara Boyd Estimated Blood Loss 20 Findings Consistent with Post-Op Diagnosis Large partially reducible incisional hernia containing bowel. Hernia sac resected, bowel reduced. Retraction of the muscle and fascia. Flaps mobilized in all directions, lateral component separations performed. Fascial defect measured 15 x 12 cm in size. Closed primarily with interrupted #1 Prolene sutures. Ovitex permanent mesh cut to fit 19 x 15 cm, secured into place in an overlay fashion using interrupted 0 Prolene sutures. Drains placed laterally. Umbilicus tacked down with 2-0 Vicryl suture. Skin closed with interrupted 3-0 Vicryl deep dermal sutures followed by cece. Exparel injected into fascia and skin. Specimens Hernia sac Drains Subcutaneous 10 mm flat MALINI drains times 2 Anesthesia Type General Complications none Disposition Accompanied Patient To Recovery: No Disposition: Recovery Room Indications 49-year-old female status post laparoscopic assisted right hemicolectomy with primary repair of incidental incisional hernia in May, now with symptomatic partially reducible bowel containing incisional hernia. Due to its size and the retraction of the muscle as well as her symptoms, we felt that this was an essential surgery. Plan for incisional hernia repair, possible laparoscopy. The risks of the procedure were discussed, all questions were answered, and the patient agreed to proceed with surgery as planned. Description of Procedure The patient was properly identified, consented, and taken to the operating room where general endotracheal anesthesia was induced. She was placed in the supine position. SCDs and a safety belt were placed. Preoperative antibiotics were administered. Her abdomen was prepped and draped in the standard sterile fashion. Surgical timeout was performed, and all parties were in agreement as correct patient and procedure be performed we continued as planned. Half percent Marcaine was injected for local anesthetic along the old incision. The old incision was completely excised. Hernia was encountered and contained mostly omentum with some bowel. This was all bluntly dissected off of the hernia sac and reduced. The old hernia sac was resected down to the fascia. This was sent as specimen. The fascia was somewhat retracted bilaterally. The hernia defect measured approximately 15 x 12 cm in size. The fascia was grasped with [place]'s and retracted medially. Flaps were raised overlying the fascia in all directions. There was still significant tension on the fascia when trying to meet in the midline, and at this point we decided to perform a partial component separation. The anterior fascia was opened about 2 to 3 cm lateral to the rectus muscle. The external oblique was dissected free the underlying tissue to allow for relaxation. This was completed on both sides. The fascia now met in the midline with minimal tension. Hemostasis was achieved within the wound. The fascial defect was then closed with interrupted #1 Prolene [id number] sutures. A piece of Ovitex permanent mesh was cut to fit 19 x 15 cm in size. This was then placed in an overlay fashion and tacked to the fascia using 0 Prolene sutures in a clockwise fashion. It was also cured to the fascia in the midline. The wound was irrigated. Exparel was injected in the fascia and subcutaneous tissues. Hemostasis appeared excellent. A 10 mm flat MALINI drains were then placed bilaterally in the lateral flaps. These were secured in the place using 2-0 nylon sutures. The umbilicus was then tacked down to the mesh in the midline using 2-0 Vicryl sutures. The skin was then closed with interrupted 3-0 Vicryl deep dermal sutures followed by cece. Sterile dressings were applied. The patient was extubated in the operating room and taken to the PACU for recovery. She tolerated the procedure without incident. All sponge sponge, needle, and instrument counts were correct at the conclusion of the case. The physician's assistant women's basketball coach was present and scrubbed for the entire the procedure. She was critical in positioning the patient, prepping and draping, retraction and exposure, reduction and repair of the hernia, placement of mesh, closure the incisions, and placement of the dressings. I attest to the content of the Intraoperative Record and any orders documented therein. Any exceptions are noted below.
[2019-08-24] MEDS ORDERED: OXYCODONE HCL IR 5 MG TAB (IMMEDIATE RELEASE) PO PRN ×2 (13:35)
[2019-08-24] MEDS ORDERED: MoRPHine SULFATE 4 MG/ML 1 ML CARP\\VIAL IV PRN (13:35)
[2019-08-24] MEDS ORDERED: MoRPHine SULFATE 2 MG/ML CARP IV PRN (13:35)
[2019-08-24] MEDS ORDERED: ALBUTEROL HFA 8 GM INHALER INH PRN (13:35)
[2019-08-24] MEDS: ACETAMINOPHEN 1,000 MG/100 ML VIAL IV SCH ×2 (14:01→22:33)
[2019-08-24] MEDS: LACTATED RINGER'S 1,000 ML IV SCH (14:01)
--- NOTE | 2019-08-24 16:48 | Anesthesiology Progress Note ---
Date of Service August 24, 2019 Anesthesia Post Procedure Vital Signs Vital Signs: Temp Pulse Pulse Resp BP BP Pulse Ox 08/24/19 16:13 37 C 81 16 125/79 94 08/24/19 15:17 36.7 C 87 16 137/85 96 08/24/19 14:22 36.7 C 82 20 127/77 95 08/24/19 14:00 36.7 C 78 16 135/81 93 08/24/19 13:15 37.0 C 67 16 138/84 93 08/24/19 12:55 70 15 124/86 98 08/24/19 12:45 36.5 C 68 16 138/87 94 08/24/19 12:35 68 13 143/89 H 98 08/24/19 12:25 71 19 128/53 L 100 08/24/19 12:18 36.0 C L 69 14 134/83 100 08/24/19 07:21 37.1 C 66 20 155/94 H 94 Transfer of Care Handoff Completed per policy Notes Mental Status: alert / awake / arousable and participated in evaluation Patient Amnestic to Procedure: Yes Nausea / Vomiting: adequately controlled Pain: adequately controlled Airway Patency, RR, SpO2: stable & adequate BP & HR: stable & adequate Hydration State: stable & adequate Anesthetic Complications: no major complications apparent
[2019-08-24] MEDS: CLINDAMYCIN 600 MG in DEXTROSE 5% 50 ML IV SCH (17:37)
[2019-08-24] MEDS: KETOROLAC TROMETHAMINE 15 MG/ML VIAL IV SCH (18:09)
[2019-08-24] MEDS ORDERED: FAMOTIDINE 20 MG TAB PO SCH (21:00)
[2019-08-24] MEDS ORDERED: ESCITALOPRAM OXALATE 20 MG TAB PO SCH (21:00)
[2019-08-24] MEDS ORDERED: AMLODIPINE BESYLATE 5 MG TAB PO SCH (21:00)
[2019-08-25] MEDS: LACTATED RINGER'S 1,000 ML IV SCH (00:14)
[2019-08-25] MEDS: CLINDAMYCIN 600 MG in DEXTROSE 5% 50 ML IV SCH ×2 (00:14→07:53)
[2019-08-25] MEDS: KETOROLAC TROMETHAMINE 15 MG/ML VIAL IV SCH ×2 (00:14→05:39)
[2019-08-25] MEDS: ACETAMINOPHEN 1,000 MG/100 ML VIAL IV SCH (05:39)
[2019-08-25] MEDS ORDERED: CLINDAMYCIN PHOS 900 MG/6 ML VIAL IV SCH (06:00)
[2019-08-25 06:31] LABS: Basophils # (auto) 0.02 K/uL (0-0.2); Basophils % (auto) 0.1 %; Eosinophils # (auto) 0.06 K/uL (0-0.5); Eosinophils % (auto) 0.4 %; Hematocrit (blood only) 35.7 % (37-47); Hemoglobin 11.7 g/dL (12.0-16.0); Immature Granulocytes # (auto) 0.02 K/uL (0.00-0.02); Immature Granulocytes % (auto) 0.1 %; Lymphocytes # (auto) 1.86 K/uL (1.2-3.4); Lymphocytes % (auto) 13.8 %; Mean Corpuscular Hemoglobin 29.1 pg (25-34); Mean Corpuscular Hgb Conc 32.8 g/dL (32-36); Mean Corpuscular Volume 88.8 fL (80-100); Mean Platelet Volume 10.6 fL (7.4-10.4); Monocytes # (auto) 1.53 K/uL (0.11-0.59); Monocytes % (auto) 11.4 %; Neutrophils # (auto) 9.98 K/uL (1.4-6.5); Neutrophils % (auto) 74.2 %; Platelet Count 231 K/uL (130-400); RDW Coefficient of Variation 13.7 % (11.5-14.5); RDW Standard Deviation 44.8 fL (36.4-46.3); Red Blood Count 4.02 M/uL (4.2-5.4); White Blood Count 13.47 K/uL (4.8-10.8)
[2019-08-25 06:58] LABS: BUN Creatinine Ratio 21.3 (10-20); Calcium 8.3 mg/dl (8.5-10.1); Creatinine Clr Calc Pharmacy 163.4 ml/min; Est GFR (African American) 127.4; Est GFR (Non-African American) 109.9; Potassium 3.7 mmol/L (3.5-5.1)
--- NOTE | 2019-08-25 08:05 | Surgery Progress Note ---
Date of Service August 25, 2019 Assessment & Plan (1) Incisional hernia, incarcerated: POD 1 incisional hernia repair recheck later today, she is hoping for discharge Supervising Physician Co-Signing Physician Notes Pnt seen and examined, agree with above. POD#1 incisional hernia repair with component separation. Doing well, pain controlled, tolerating diet, wants to go home. AVFSS, MALINI's with serosanguinous drainage, incision with dressings in place, c/d/i. d/c to home, call with drain amounts on Thursday for removal. wound care instructions and activity restrictions reviewed. return precautions given. Subjective no c/o, Tylenol for pain Physical Exam Gastrointestinal (Abdomen): Percussion/Palpation: abdomen soft right MALINI 60 left MALINI 95 Results & Data Vital Signs (Past 12 Hours) Vital Signs Temp Pulse Pulse Resp BP Pulse Ox 08/25/19 07:19 37.0 C 72 18 124/81 91 08/25/19 03:58 37.2 C 79 16 129/80 90 08/24/19 23:33 37.1 C 67 20 133/81 92 PG Care Time/CCT Total # of Minutes Spent Total Time Spent with Patient: Total time spent is greater than 50% in coordination of care (as documented) at patient's floor/unit and/or counseling patient: Coding Level of Care Code None Diagnoses Incisional hernia, incarcerated K43.0
--- NOTE | 2019-08-25 13:09 | Discharge Summary ---
Date of Service August 25, 2019 Principal Diagnosis Incarcerated incisional hernia Discharge Exam Gastrointestinal (Abdomen) Inspection/Auscultation: + abdominal surgical incision (clean) and + abdominal surgical drain present (right MALINI 60 cc, left MALINI 95 cc) Percussion/Palpation: abdomen soft Discharge Data Allergies Allergy/AdvReac Type Severity Reaction Status Date / Time cephalexin Allergy Intermediate HIVES Verified 08/24/19 07:37 erythromycin base Allergy Intermediate HIVES Verified 08/24/19 07:37 nitrofurantoin Allergy Intermediate HIVES Verified 08/24/19 07:37 Penicillins Allergy Intermediate HIVES Verified 08/24/19 07:37 influenza virus vacc AdvReac Intermediate HEADACHE & Verified 08/24/19 07:37 trivalent, split MYALGIA [From Fluzone] Sulfa (Sulfonamide AdvReac Mild HEADACHES Verified 08/24/19 07:37 Antibiotics) Procedures Performed Operation Date: 08/24/19 08:20 Actual Procedures p Open Incarcerated Incisional Hernia Repair with Mesh with Component Separation(Not Applicable) - Ken Lainez DO, FACS Hospital Course (1) Incisional hernia, incarcerated: 49 y/o female with chronic incarceration of incisional hernia was taken to the OR for elective hernia repair. The procedure was well tolerated, she was observed on the surgical floor overnight. By the next morning she was tolerating diet and taking Tylenol for pain. She was stable for discharge home with MALINI drains and will follow-up in the office next week for removal of these. Total Time Total Time Spent Total Time Spent (In Minutes): 10 Discharge Plan Discharge Items Patient Disposition: Home - Self-Care Reason For Visit: Incisional Hernia Discharge Diagnosis: open incisional hernia repair with mesh Activity: Per Instructions section Lifting: No more than 10 pounds Bathing Comment: may shower, no soaking in tubs Exercise/Sports: Wait until after follow-up appointment Driving/Machine Use: do not resume driving while taking narcotics for pain Non-emergency contact: Surgeon Call non-emergency contact if: you have any medication questions, your symptoms worsen, your pain is not controlled, your pain is worsening, your pain is unusual for you, you have a fever, your temperature is above 101.5, your wound has increased redness, your wound has increased drainage and your wound pain has increased Follow-up/Referrals: Galileo Sanchez MD [Primary Care Provider] - eKn Lainez DO, FACS [Physician] - 09/12/19 10:00 am (Please call to schedule follow up in clinic within 2 weeks) Diet: Regular Addtl Attending Provider Instructions: Your surgical cece will be removed when you follow up in clinic Pending Studies at Discharge: No Stand-Alone Forms: My [facility], Opioid Pain Management, Smoking Cessation Medications and DC Order Prescriptions: New oxycodone-acetaminophen [Percocet] 5-325 mg tablet 1 - 2 tab PO .q4-6h PRN (Reason: pain, for initial therapy, max 6 tabs per day) Qty: 15 RF: 0 Continued escitalopram oxalate 20 mg tablet 20 mg PO HS Qty: 90 RF: 3 albuterol sulfate [Ventolin HFA] 90 mcg/actuation HFA aerosol inhaler 2 puffs INH Q6H PRN (Reason: shortness of breath or wheezing) Qty: 18 RF: 3 Chantix Continuing Month Box 1 mg tablet 1 mg PO BID Qty: 56 RF: 0 meloxicam 15 mg tablet 15 mg PO QPM RF: 0 amlodipine 5 mg tablet 5 mg PO PM RF: 0 famotidine 20 mg tablet 20 mg PO QPM RF: 0 Discharge Orders: Discharge Order (Routine); Ordered 08/25/19 Ordered By: Krish Rosenberg/Other Patient Handouts: DVT Prevention Admission Data Admit Date/Time: 08/24/19 11:56 Attending Provider: Ken Lainez Admit Provider: Ken Lainez Primary Care Provider: Galileo Sanchez Other Interventions: Discharge Summary Assessment (RN) Last Done: 08/25/19 10:57 DC Date/Time DO NOT enter until pt leaves facility: 08/25/19 12:30 Coding Level of Care Code D/C Day Management <30 mins Diagnoses Incisional hernia, incarcerated K43.0
== END 2019-08-25 12:30 | disposition home or self-care (01) ==
LOC: 3E 07:00 → ASU 07:00

== ENCOUNTER 2019-09-19 17:25 | Inpatient (IN) ==
--- NOTE | 2019-09-19 20:17 | History & Physical Report ---
Date of Service September 19, 2019 Assessment & Plan (1) Wound dehiscence: -will admit to hospital -will check labs -place on IV cipro and flagyl -will place on bedrest with BR privileges due to wound drainage -Dr. [place] to see tomorrow for definitive plan on wound care -hospitalist consult for medical mgt. -as p. is taking Eliquis no additional DVT measures needed Dr Gonzalez- pt evaluated in ER- some skin / subcu tissue necrosis with drainage minimal surrounding erythema/ cellulitis, cloudy serous drainage admit for now to control drainage and place on IV atbx. no fever , pt with some chills in ER History of Present Illness Primary Care Provider: Galileo Sanchez MD 49 year old female had a ventral hernia with mesh performed on 08/24/[address] Lainez. She had a post-op course complicated by DVT for which she was placed on Eliquis. She was seen in the office on 09/12/19 at which time her staple were removed. She was doing well but noted over the past 2 days she was not using her abdominal binder. Last night she noted her skin edges broke apart and she had some foul smelling dark colored discharge. No fevers noted but since arrival to ED she had noted chills. No N/V. Her bowels are functioning normally and her apatite is normal. She was seen in the ED by myself and Dr. Gonzalez and felt admission was required. Allergies Allergy/AdvReac Type Severity Reaction Status Date / Time cephalexin Allergy Intermediate HIVES Verified 09/12/19 11:55 erythromycin base Allergy Intermediate HIVES Verified 09/12/19 11:55 nitrofurantoin Allergy Intermediate HIVES Verified 09/12/19 11:55 Penicillins Allergy Intermediate HIVES Verified 09/12/19 11:55 influenza virus vacc AdvReac Intermediate HEADACHE & Verified 09/12/19 11:55 trivalent, split MYALGIA [From Fluzone] Sulfa (Sulfonamide AdvReac Mild HEADACHES Verified 09/12/19 11:55 Antibiotics) Home Medications Home Medications Medication Instructions Recorded Confirmed Type escitalopram oxalate 20 mg tablet 20 mg PO HS #90 tab 02/16/19 09/19/19 Rx albuterol sulfate 90 mcg/actuation 2 puffs INH Q6H PRN #18 gm 03/28/19 09/19/19 Rx aerosol inhaler famotidine 20 mg PO QPM 06/24/19 09/19/19 History meloxicam 15 mg PO QPM 06/24/19 09/19/19 History varenicline 1 mg tablet 1 mg PO BID #56 tab 08/25/19 09/19/19 Rx apixaban 5 mg tablet 5 mg PO BID #60 tab 09/08/19 09/19/19 Rx amlodipine 5 mg tablet 5 mg PO PM #90 tab 09/15/19 09/19/19 Rx Past Med/Surg History Medical History Adenocarcinoma, 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 Anxiety DVT (deep venous thrombosis) Former smoker GERD (gastroesophageal reflux disease) Hyperlipidemia (Chronic) Hypertension (Chronic) Migraine HX Osteoarthritis Serrated adenoma of colon (Inactive) Sleep apnea Surgical History H/O ovarian cystectomy History of adenoidectomy History of arthroscopy LEFT KNEE History of cataract surgery RT History of colonoscopy History of hemicolectomy 07/06/19 History of incisional hernia repair 07/06/19 History of tonsillectomy History of tooth extraction Hx of appendectomy Hx of cholecystectomy Status post medial meniscus repair Family History Mother Diabetes Heart disease Myocardial infarction Cardiac disorder Father Ulcerative colitis Grandmother (Paternal) Breast cancer Grandfather (Paternal) Colorectal cancer Denies family history of Ovarian cancer Prostate cancer Hypertension Stroke Social History Preferred Language: Yoruba Communication Ability: Effective Visual Impairment: No Limitations Hearing Ability: Normal Lending Activities Supervisor Required: No Beliefs That Will Affect Care: Jew Jew Beliefs: Restoration marital status: Current Living Situation: Spouse Current Living Situation Comment: special needs child at home Feels Safe at Home: Yes Smoking Status: Former smoker Tobacco Type: cigarettes ; Cigarettes Per Day: 1/2 PPD ; Second Hand Exposure: No ; Hx Alcohol Use: No Hx Substance Use: No Childhood Exposure to Second-Hand Smoke: Yes caffeine: Yes Dental Care, Regularly: Yes Physical Activity Frequency: Does not Exercise Seatbelt Use: always Sunscreen Use: Yes Review of Systems Constitutional: + chills; no fever Eyes: no diplopia Ear, Nose, Mouth, Throat: no ear pain Respiratory: no cough and no dyspnea Cardiovascular: no chest pain Gastrointestinal: no abdominal pain, no nausea, no vomiting and no change in bowel habits Genitourinary: no dysuria Musculoskeletal: no back pain Integumentary: no rash Neurologic: no localized weakness Physical Exam Physical Exam: abdominal wound has minimal erythema; there is approx. a 6 cm area in superior portion that is open with foul smelling black/brown fluid. Constitutional: well developed and well nourished; no acute distress Eyes: no conjunctival abnormality ENMT: Ears: no hearing impairment Neck: trachea midline Cardiovascular: Rate/Rhythm: regular rate and regular rhythm Gastrointestinal (Abdomen): Percussion/Palpation: abdomen soft; abdomen nontender see above for wound description Musculoskeletal: no calf pain Skin: no rashes, warm and dry Neurologic: moves all extremities Psychiatric: A+Ox3, euthymic affect Results & Data Results & Data ([facility]) Vital Signs (Past 12 Hours) Vital Signs Temp Pulse Resp BP Pulse Ox 09/19/19 17:32 36.8 C 77 20 173/115 H 95 Code Status & VTE Plan VTE Prophylaxis Plan VTE Prophylaxis will be ordered: Yes PG Care Time/CCT Total # of Minutes Spent Total Time Spent with Patient: Total time spent is greater than 50% in coordination of care (as documented) at patient's floor/unit and/or counseling patient: Coding Level of Care Code 27779 Initial Inpt Care Lvl 3 Diagnoses Wound dehiscence T81.30XA
--- NOTE | 2019-09-19 20:49 | Consultation ---
Date of Consultation September 19, 2019 Assessment & Plan (1) Wound dehiscence: Concern for underlying seroma, possible infection as patient states drainage was foul smelling. She is afebrile, HD stable, non-toxic in appearance -Admit to medical floor -Check blood cultures -Check CBC -Ciprofloxacin and Flagyl -NPO after midnight for possible drainage in AM -Holding Meloxicam Present on Admission?: Yes (2) Hypertension: Blood pressure elevated in ER, 173/115. Patient normotensive during prior encounters -Continue Amlodipine 5mg po qPM. She should receive a dose upon arrival to the floor -Continue to monitor BP Present on Admission?: Yes (3) Hyperlipidemia: Chronic. Patient presently not taking medications for this -Encourage low cholesterol/heart healthy diet and physical activity Present on Admission?: Yes (4) Depression with anxiety: Chronic. Well controlled -Continue escitalopram 20mg po qHS Present on Admission?: Yes (5) Obstructive sleep apnea of adult: Patient does not use CPAP Present on Admission?: Yes (6) DVT (deep venous thrombosis): Recently diagnosed LLE DVT -Continue Apixaban 5mg po BID Present on Admission?: Yes (7) Former smoker: Patient recently quit. Congratulated for her efforts -Continue Varenicline 1mg po BID Present on Admission?: Yes (8) GERD (gastroesophageal reflux disease): Chronic. Well controlled -Continue Famotidine Thank you for this consult. We will continue to follow Present on Admission?: Yes History of Present Illness Requesting Physician: Dr. 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 Patient had a port site hernia discovered during her colectomy which was repaired. She then had recurrence of her incisional hernia. She underwent an open incisional hernia repair with mesh on 08/24/[address] Lainez. Surgery was well tolerated with no complications. She was discharged home in stable condition on 08/25/19. She was seen in followup on 09/06/19 and had half of her cece removed and removal of the right MALINI drain. She returned on 09/12/19 and the remaining cece were removed as was her left MALINI drain. She reports compliance with her abdominal binder but has been having increased drainage from her site as well as some wound dehiscence. She reports some foul smelling discharge. Denies fevers/chills/cough/SOB/nausea/vomiting/diarrhea or constipation. No additional complaints at this time. Patient denies recent travel or sick contacts. Denies fever/chills/cough/SOB/loss of taste or smell. She has been compliant with social distancing and isolation in her home. No concerns for Covid-19 at this time. Allergies Allergy/AdvReac Type Severity Reaction Status Date / Time cephalexin Allergy Intermediate HIVES Verified 09/12/19 11:55 erythromycin base Allergy Intermediate HIVES Verified 09/12/19 11:55 nitrofurantoin Allergy Intermediate HIVES Verified 09/12/19 11:55 Penicillins Allergy Intermediate HIVES Verified 09/12/19 11:55 influenza virus vacc AdvReac Intermediate HEADACHE & Verified 09/12/19 11:55 trivalent, split MYALGIA [From Fluzone] Sulfa (Sulfonamide AdvReac Mild HEADACHES Verified 09/12/19 11:55 Antibiotics) Home Medications Home Medications Medication Instructions Recorded Confirmed Type escitalopram oxalate 20 mg tablet 20 mg PO HS #90 tab 02/16/19 09/19/19 Rx albuterol sulfate 90 mcg/actuation 2 puffs INH Q6H PRN #18 gm 03/28/19 09/19/19 Rx aerosol inhaler famotidine 20 mg PO QPM 06/24/19 09/19/19 History meloxicam 15 mg PO QPM 06/24/19 09/19/19 History varenicline 1 mg tablet 1 mg PO BID #56 tab 08/25/19 09/19/19 Rx apixaban 5 mg tablet 5 mg PO BID #60 tab 09/08/19 09/19/19 Rx amlodipine 5 mg tablet 5 mg PO PM #90 tab 09/15/19 09/19/19 Rx Patient History Medical History (Updated 09/19/19 @ 20:48 by Minda Verma DO) Adenocarcinoma, 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 Anxiety DVT (deep venous thrombosis) Former smoker GERD (gastroesophageal reflux disease) Hyperlipidemia (Chronic) Hypertension (Chronic) Migraine HX Osteoarthritis Serrated adenoma of colon (Inactive) Sleep apnea Surgical History (Updated 09/09/19 @ 14:02 by Amparo Murray MD) H/O ovarian cystectomy History of adenoidectomy History of arthroscopy LEFT KNEE History of cataract surgery RT History of colonoscopy History of hemicolectomy 07/06/19 History of incisional hernia repair 07/06/19 History of tonsillectomy History of tooth extraction Hx of appendectomy Hx of cholecystectomy Status post medial meniscus repair Family History (Updated 08/29/19 @ 13:25 by Yuly Salazar) Mother Diabetes Heart disease Myocardial infarction Cardiac disorder Father Ulcerative colitis Grandmother (Paternal) Breast cancer Grandfather (Paternal) Colorectal cancer Denies family history of Ovarian cancer Prostate cancer Hypertension Stroke Social History (Updated 06/24/19 @ 10:39 by Gypsy Vásquez MA) Preferred Language: Nepali Communication Ability: Effective Visual Impairment: No Limitations Hearing Ability: Normal Criminal Intelligence Analyst Required: No Beliefs That Will Affect Care: Cheondoism Cheondoism Beliefs: CHEONDOISM marital status: Current Living Situation: Spouse Current Living Situation Comment: special needs child at home Feels Safe at Home: Yes Smoking Status: Former smoker Tobacco Type: cigarettes ; Cigarettes Per Day: 1/2 PPD ; Second Hand Exposure: Yes ; Hx Alcohol Use: No Hx Substance Use: No Childhood Exposure to Second-Hand Smoke: Yes caffeine: Yes Dental Care, Regularly: Yes Physical Activity Frequency: Does not Exercise Seatbelt Use: always Sunscreen Use: Yes Review of Systems Review of Systems: All systems reviewed & are unremarkable except as noted in HPI & below Physical Exam Physical Exam: General: patient resting comfortably, NAD, non-toxic in appearance, AA&O x 4 Skin: warm, dry, intact, no rashes or lesions HEENT: NC/AT, PERRL, EOMI, anicteric sclera, conjunctiva without injection, external ear normal to inspection and nontender, nares patent, neck supple, trachea midline, no LAD, no thyromegaly, no JVD Heart: +S1/S2, regular, no m/r/g Lungs: equal air entry bilaterally, no rales/rhonchi/wheezes Abd: +BS, soft, ND, dressing in place clean/dry/intact. Photographs from abdominal wound viewed on patient's phone with area of dehiscence, some mild surrounding erythema Ext: warm, 2+ pulses in UE/LE bilaterally, no clubbing/cyanosis or edema Neuro: nonfocal, patient AA&O x 4, speech intact, no facial droop, moving all extremities on command with equal strength 5/5 Results & Data ([facility]) Vital Signs (Past 12 Hours) Vital Signs Temp Pulse Resp BP Pulse Ox 09/19/19 17:32 36.8 C 77 20 173/115 H 95 PG Care Time/CCT Total # of Minutes Spent Total Time Spent with Patient: Total time spent is greater than 50% in coordination of care (as documented) at patient's floor/unit and/or counseling patient: Coding Level of Care Code 94681 Inpt Consult Level 3 Diagnoses Wound dehiscence T81.30XA Hypertension I10 Hypertension type: essential hypertension Hyperlipidemia E78.5 Hyperlipidemia type: unspecified Depression with anxiety F41.8 Obstructive sleep apnea of adult G47.33 DVT (deep venous thrombosis) I82.402 DVT location: lower extremity Affected thrombotic vein of extremity: unspecified vein of extremity Chronicity: unspecified Laterality: left Former smoker Z87.891 GERD (gastroesophageal reflux disease) K21.9 Esophagitis presence: esophagitis presence not specified (1) Hypertension Hypertension type: essential hypertension Qualified Code(s): I10 - Essential (primary) hypertension (2) Hyperlipidemia Hyperlipidemia type: unspecified Qualified Code(s): E78.5 - Hyperlipidemia, unspecified (3) DVT (deep venous thrombosis) DVT location: lower extremity Affected thrombotic vein of extremity: unspecified vein of extremity Chronicity: unspecified Laterality: left Qualified Code(s): I82.402 - Acute embolism and thrombosis of unspecified deep veins of left lower extremity (4) GERD (gastroesophageal reflux disease) Esophagitis presence: esophagitis presence not specified Qualified Code(s): K21.9 - Gastro-esophageal reflux disease without esophagitis
[2019-09-19] MEDS ORDERED: APIXABAN 5 MG TABLET PO SCH (21:12)
[2019-09-19] MEDS ORDERED: ALBUTEROL HFA 8 GM INHALER INH PRN (21:12)
[2019-09-19 21:50] LABS: Basophils # (auto) 0.04 K/uL (0-0.2); Basophils % (auto) 0.2 %; Eosinophils # (auto) 0.42 K/uL (0-0.5); Eosinophils % (auto) 2.2 %; Hematocrit (blood only) 42.3 % (37-47); Hemoglobin 13.7 g/dL (12.0-16.0); Immature Granulocytes # (auto) 0.05 K/uL (0.00-0.02); Immature Granulocytes % (auto) 0.3 %; Lymphocytes # (auto) 1.75 K/uL (1.2-3.4); Lymphocytes % (auto) 9.1 %; Mean Corpuscular Hemoglobin 28.3 pg (25-34); Mean Corpuscular Hgb Conc 32.4 g/dL (32-36); Mean Corpuscular Volume 87.4 fL (80-100); Mean Platelet Volume 10.4 fL (7.4-10.4); Monocytes # (auto) 1.08 K/uL (0.11-0.59); Monocytes % (auto) 5.6 %; Neutrophils # (auto) 15.84 K/uL (1.4-6.5); Neutrophils % (auto) 82.6 %; Platelet Count 340 K/uL (130-400); RDW Coefficient of Variation 13.5 % (11.5-14.5); RDW Standard Deviation 43.4 fL (36.4-46.3); Red Blood Count 4.84 M/uL (4.2-5.4); White Blood Count 19.18 K/uL (4.8-10.8)
[2019-09-19 22:07] LABS: BUN Creatinine Ratio 21.1 (10-20); Calcium 9.1 mg/dl (8.5-10.1); Est GFR (African American) 110.5; Est GFR (Non-African American) 95.4
[2019-09-19] MEDS ORDERED: PROCHLORPERAZINE 5 MG in SYRINGE 4 ML IV ONE (22:10)
--- NOTE | 2019-09-19 22:12 | Emergency Department Note ---
Impression & Plan Postoperative wound dehiscence, Hypertension ED Provider Note NAME: RAFAEL CHAWLA AGE: 49 SEX: F ARRIVES VIA: Walk-In INFORMANT: Patient, ED PROVIDER(S): Henrry Burris MD CHIEF COMPLAINT: Abdominal surgical wound dehiscence PLAN: Disposition: Admit MEDICAL DECISION MAKING: The patient is a pleasant 49-year-old woman with a past medical history of DONNIE, hypertension, hyperlipidemia, adenocarcinoma of the appendix, history of h emicolectomy, history of incisional hernia status post repair on August 24, [address] Lainez, history of DVT on Eliquis after her recent surgery, who presents emergency department with dehiscence of her surgical wound that she reports occurred yesterday when she was walking with out her abdominal binder which she reports she intermittently will take off given she feels it is uncomfortable. Patient reports she contacted her surgeon's office, and was told she would be able to be seen tomorrow morning. However she was concerned about the foul-smelling discharge and presents to the emergency department for evaluation. Patient reports she had her cece removed last week on her visit with Dr. Lainez. The patient denies any fevers, chills, cough, congestion, nausea, vomiting, diarrhea. She denies any new abdominal pain. On arrival patient is no acute distress, afebrile, with elevated blood pressure but otherwise stable vital signs. On exam the patient has a approximate 8 cm wound dehiscence of her ~15cm ventral surgical site with foul-smelling necrotic tissue noted. There is no surrounding erythema, warmth, duration or tenderness to the wound. The wound was probed with a sterile swab and no deep dehiscence was appreciated. Otherwise, the patient has some mild left-sided abdominal discomfort but no discrete tenderness. The patient denied any infectious symptoms blood work and imaging was initially deferred. It is anticipated that the patient's wound likely will require debridement and antibiotics. Case was discussed with general surgery, LAVERNE Son, with Dr. Gonzalez who is on-call. Upon their evaluation the decision was made to admit the patient for IV ant ibiotics and a.m. evaluation by Dr. Lainez. Orders per general surgery. Triage Nursing notes reviewed and agree them. Prior medical records reviewed Vital Signs: reviewed and remarkable for hypertension. Differential diagnosis: Cellulitis, abscess, MRSA infection, DVT, necrotizing fasciitis, dermatitis, drug eruption, allergic reaction, as well as other pathologies. ER treatment provided: None. Laboratory studies: See below Consultation(s): Klaus Leong, General surgery PAC with Dr. Gonzalez, general surgery on-call. HPI: The patient is a pleasant 49-year-old woman with a past medical history of DONNIE, hypertension, hyperlipidemia, adenocarcinoma of the appendix, history of hemicolectomy, history of incisional hernia status post repair on August 24, [address] Lainez, history of DVT on Eliquis after her recent surgery, who presents emergency department with dehiscence of her surgical wound that she reports occurred yesterday when she was walking with out her abdominal binder which she reports she intermittently will take off given she feels it is uncomfortable. Patient reports she contacted her surgeon's office, and was told she would be able to be seen tomorrow morning. However she was concerned about the foul-smelling discharge and presents to the emergency department for evaluation. Patient reports she had her cece removed last week on her visit with Dr. Lainez. The patient denies any fevers, chills, cough, congestion, nausea, vomiting, diarrhea. She denies any new abdominal pain. ROS: See above HPI for pertinent positives & negatives. A total of 10 systems reviewed and were otherwise negative. PAST MEDICAL HISTORY:See Below PAST SURGICAL HISTORY:See Below FAMILY HISTORY:See Below SOCIAL HISTORY:See Below HOME MEDICATIONS:See Below ALLERGIES:See Below VITALS:See Below PHYSICAL EXAMINATION: GENERAL: Awake, alert, well-appearing, in no distress, BMI 40.6kg/m2 HENT: Normocephalic, atraumatic. Oropharynx unremarkable. EYES: Normal conjunctiva. Sclera non-icteric. NECK: Supple. No nuchal rigidity. FROM. No JVD. RESPIRATORY: Clear to auscultation. CARDIAC: Regular rate, normal rhythm. Extremities warm and well perfused. Pulses equal. ABDOMEN: 8 cm wound dehiscence of her ~15cm ventral surgical site with foul- smelling necrotic tissue noted. There is no surrounding erythema, warmth, duration or tenderness to the wound. The wound was probed with a sterile swab and no deep dehiscence was appreciated. Soft, non-distended. Mild left-sided abdominal discomfort but no discrete tenderness. No rebound or guarding. No masses. RECTAL: Deferred. MUSCULOSKELETAL: Chest examination reveals no tenderness. The back is symmetrical on inspection without obvious abnormality. There is no CVA tenderness to palpation. No joint edema. LOWER EXTREMITIES: Calves are equal size bilaterally and non-tender. No edema. No discoloration. NEURO: Normal sensorium. No sensory or motor deficits noted. SKIN: No rash or jaundice noted. Henrry Burris MD Past Med/Surg History Medical History Adenocarcinoma, 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 Anxiety DVT (deep venous thrombosis) Former smoker GERD (gastroesophageal reflux disease) Hyperlipidemia (Chronic) Hypertension (Chronic) Migraine HX Osteoarthritis Serrated adenoma of colon (Inactive) Sleep apnea Surgical History H/O ovarian cystectomy History of adenoidectomy History of arthroscopy LEFT KNEE History of cataract surgery RT History of colonoscopy History of hemicolectomy 07/06/19 History of incisional hernia repair 07/06/19 History of tonsillectomy History of tooth extraction Hx of appendectomy Hx of cholecystectomy Status post medial meniscus repair Family History Mother Diabetes Heart disease Myocardial infarction Cardiac disorder Father Ulcerative colitis Grandmother (Paternal) Breast cancer Grandfather (Paternal) Colorectal cancer Denies family history of Ovarian cancer Prostate cancer Hypertension Stroke Social History Preferred Language: Urdu Communication Ability: Effective Visual Impairment: No Limitations Hearing Ability: Normal Exam Proctor Required: No Beliefs That Will Affect Care: Hindu Hindu Beliefs: Rastafarian marital status: Current Living Situation: Spouse Current Living Situation Comment: special needs child at home Feels Safe at Home: Yes Smoking Status: Former smoker Tobacco Type: cigarettes ; Cigarettes Per Day: 1/2 PPD ; Second Hand Exposure: No ; Hx Alcohol Use: No Hx Substance Use: No Childhood Exposure to Second-Hand Smoke: Yes caffeine: Yes Dental Care, Regularly: Yes Physical Activity Frequency: Does not Exercise Seatbelt Use: always Sunscreen Use: Yes Allergies Allergies Allergy/AdvReac Type Severity Reaction Status Date / Time cephalexin Allergy Intermediate HIVES Verified 09/12/19 11:55 erythromycin base Allergy Intermediate HIVES Verified 09/12/19 11:55 nitrofurantoin Allergy Intermediate HIVES Verified 09/12/19 11:55 Penicillins Allergy Intermediate HIVES Verified 09/12/19 11:55 influenza virus vacc AdvReac Intermediate HEADACHE & Verified 09/12/19 11:55 trivalent, split MYALGIA [From Fluzone] Sulfa (Sulfonamide AdvReac Mild HEADACHES Verified 09/12/19 11:55 Antibiotics) Home Meds Home Medications Medication Instructions Recorded Confirmed famotidine 20 mg PO QPM 06/24/19 09/19/19 meloxicam 15 mg PO QPM 06/24/19 09/19/19 Previous Rx's Medication Instructions Recorded escitalopram oxalate 20 mg tablet 20 mg PO HS #90 tab 02/16/19 albuterol sulfate 90 mcg/actuation 2 puffs INH Q6H PRN #18 gm 03/28/19 aerosol inhaler varenicline 1 mg tablet 1 mg PO BID #56 tab 08/25/19 apixaban 5 mg tablet 5 mg PO BID #60 tab 09/08/19 amlodipine 5 mg tablet 5 mg PO PM #90 tab 09/15/19 Results & Data (ED) Vital Signs Vital Signs - 24 hr 09/19/19 17:32 Temperature 36.8 C Temperature Source Oral Pulse Rate 77 Respiratory Rate 20 Blood Pressure 173/115 H Blood Pressure Mean 134 Blood Pressure Position Sitting Pulse Oximetry 95 Oxygen Delivery Method Room Air Sepsis Recent Fever Within 48 Hours No Sepsis New/Unexplained Change in Mental Status No Sepsis Action Taken by Nursing No Action Required Laboratory Data Attestation: I reviewed the patient's lab results. Result diagrams: 09/19/19 21:36 09/19/19 21:36 Administered Medications Amlodipine Besylate (Norvasc) 5 mg PO PM FABIAN Stop: 10/19/19 21:11 Last Admin: 09/20/19 01:17 Dose: Not Given Documented by: [id number] Apixaban (Eliquis) 5 mg PO BID FABIAN Stop: 10/19/19 21:11 Last Admin: 09/20/19 01:17 Dose: Not Given Documented by: [id number] Escitalopram Oxalate (Lexapro Tab) 20 mg PO HS FABIAN Stop: 10/19/19 21:11 Last Admin: 09/20/19 00:28 Dose: Not Given Documented by: [id number] Famotidine (Pepcid) 20 mg PO QPM [facility] Stop: 10/19/19 21:11 Last Admin: 09/20/19 00:28 Dose: Not Given Documented by: [id number] Ciprofloxacin (Cipro) 400 mg in 200 mls @ 100 mls/hr IV Q12H FABIAN; Protocol Stop: 09/29/19 21:59 Last Infusion: 09/20/19 00:56 Dose: 0 mls/hr Documented by: [id number] Admin: 09/19/19 22:56 Dose: 100 mls/hr Documented by: [id number] Metronidazole (Flagyl) 500 mg in 100 mls @ 100 mls/hr IV Q8H [facility] Stop: 09/29/19 21:59 Last Infusion: 09/19/19 23:20 Dose: 0 mls/hr Documented by: [id number] Admin: 09/19/19 22:19 Dose: 100 mls/hr Documented by: [id number] Varenicline (Chantix) 1 mg PO BID [facility] Stop: 10/19/19 21:44 Last Admin: 09/20/19 00:28 Dose: Not Given Documented by: [id number] Discontinued Medications Prochlorperazine 5 mg/ Syringe 5 mls @ 5 mls/min IV ONE ONE Stop: 09/19/19 22:11 Last Admin: 09/19/19 22:24 Dose: 5 mls/min Documented by: [id number] Prochlorperazine 5 mg/ Syringe 5 mls @ 5 mls/min IV ONE ONE Stop: 09/20/19 00:46 Last Admin: 09/20/19 00:56 Dose: 5 mls/min Documented by: [id number] Blood Pressure Blood Pressure Findings: Elevated blood pressure Blood Pressure Disposition: further management by hospitalist Discharge Plan Visit Data *Final* Discharge Date/Time: 09/19/19 20:50 Chief Complaint: Abdominal Pain Stated Complaint: INCISION OPENED UP ED Provider: Henrry Burris Discharge Problem: Postoperative wound dehiscence, Hypertension Patient Disposition: Admitted As Inpatient Discharge Instructions Interventions: ED Discharge Assessment Last Done: 09/19/19 20:50 Discharge Problem: Postoperative wound dehiscence Qualifiers: Encounter type: initial encounter Qualified Code(s): T81.31XA - Disruption of external operation (surgical) wound, not elsewhere classified, initial encounter Hypertension Qualifiers: Hypertension type: essential hypertension Qualified Code(s): I10 - Essential (primary) hypertension
[2019-09-19] MEDS: metroNIDAZOLE 500 MG/100 ML BAG IV SCH (22:19)
[2019-09-19] MEDS ORDERED: PROCHLORPERAZINE 5 MG in SYRINGE 4 ML IV PRN (22:25)
[2019-09-19] MEDS: CIPROFLOXACIN / D5W 400 MG/200 ML BAG IV SCH (22:56)
[2019-09-20] MEDS: VARENICLINE 1 MG TAB PO SCH ×3 (00:28→21:07)
[2019-09-20] MEDS: ESCITALOPRAM OXALATE 20 MG TAB PO SCH ×2 (00:28→21:07)
[2019-09-20] MEDS: FAMOTIDINE 20 MG TAB PO SCH ×2 (00:28→21:08)
[2019-09-20] MEDS ORDERED: PROCHLORPERAZINE 5 MG in SYRINGE 4 ML IV ONE (00:45)
[2019-09-20] MEDS: AMLODIPINE BESYLATE 5 MG TAB PO SCH ×2 (01:17→21:08)
[2019-09-20] MEDS: metroNIDAZOLE 500 MG/100 ML BAG IV SCH ×3 (05:25→22:39)
[2019-09-20 08:53] LABS: Hematocrit (blood only) 38.7 % (37-47); Hemoglobin 12.4 g/dL (12.0-16.0); Mean Corpuscular Hemoglobin 27.9 pg (25-34); Mean Corpuscular Volume 87.2 fL (80-100); Mean Platelet Volume 10.6 fL (7.4-10.4); Platelet Count 328 K/uL (130-400); RDW Coefficient of Variation 13.8 % (11.5-14.5); RDW Standard Deviation 43.8 fL (36.4-46.3); Red Blood Count 4.44 M/uL (4.2-5.4); White Blood Count 32.21 K/uL (4.8-10.8)
[2019-09-20] MEDS: CIPROFLOXACIN / D5W 400 MG/200 ML BAG IV SCH ×2 (09:06→22:39)
[2019-09-20 09:07] LABS: Basophils # (auto) 0.03 K/uL (0-0.2); Basophils % (auto) 0.1 %; Eosinophils # (auto) 0.01 K/uL (0-0.5); Immature Granulocytes # (auto) 0.12 K/uL (0.00-0.02); Immature Granulocytes % (auto) 0.4 %; Lymphocytes # (auto) 1.39 K/uL (1.2-3.4); Lymphocytes % (auto) 4.3 %; Monocytes # (auto) 1.97 K/uL (0.11-0.59); Monocytes % (auto) 6.1 %; Neutrophils # (auto) 28.69 K/uL (1.4-6.5); Neutrophils % (auto) 89.1 %
[2019-09-20 09:09] LABS: BUN Creatinine Ratio 19.6 (10-20); Calcium 8.6 mg/dl (8.5-10.1); Creatinine Clr Calc Pharmacy 80.9 ml/min; Est GFR (African American) 73.8; Est GFR (Non-African American) 63.6; Potassium 3.6 mmol/L (3.5-5.1)
--- NOTE | 2019-09-20 09:42 | Surgery Progress Note ---
Date of Service September 20, 2019 Assessment & Plan (1) Postoperative wound dehiscence: Hospital day 1 here with post op wound dehiscence WBC increased today to 32 from 19 Tmax 37.9 yesterday around 21:00, afebrile since then Currently on IV cipro/flagyl Changed dressing at bedside today, wound copious amount of thin drainage- pt states is much mixer whipped topping in appearance than prior and less foul smelling Will order CT a/p with IV contrast for further evaluation; pending results can adv diet and make NPO at midnight Hold eliquis and add SCD's, pt w LE DVT Will tentatively place pt on OR schedule for washout of abdominal wound for tomorrow with Dr. Lainez Supervising Physician Co-Signing Physician Notes Patient seen and examined, labs and imaging reviewed, agree with above. Status post right component separation with ovitex permanent mesh. She also had been diagnosed with a left leg DVT and was treated with Eliquis. She presented with concerns for skin dehiscence at her incision site and increased drainage. She also started to feel chilled with some nausea and vomiting as well as a fever after admission. Her white blood cell count increased significantly this morning after admission, and a CT scan was performed which showed a fluid collection as expected around the mesh though this could represent a developing abscess. Also, there was a question of a possible subsegmental PE. She is already on Eliquis as an outpatient. On exam she has a sinus tract extending to the deep tissues, has some murky colored clear fluid. There is a 2 cm x 3 cm separation of the skin in this area. Otherwise the abdomen is soft and benign with no significant surrounding cellulitis. Her white blood cell count was 32 this morning up from 19 yesterday. Cultures from the wound are growing back group B strep with multiple gram-positive cocci. CT scan was reviewed by myself and showed fluid collection in the area of the hernia repair with no significant rim enhancement but could be consistent with a developing abscess. This is also common with bioabsorbable mesh is to have a seroma. Assessment: 49-year-old female with likely deep superficial postoperative wound infection Plan for abdominal wound incision and drainage, possible wound VAC placement tomorrow in the operating room The risks of the procedure were discussed to include but not limited to bleeding, infection, need for future more extensive surgery, prolonged wound healing, poor cosmesis, damage to surrounding structures, and the risk of anesthesia We reviewed the finding of a possible small PE with the patient as well as with the hospitalist service. At this time she is already being treated for a DVT as an outpatient and this would not alter the course of care to obtain further imaging with a CTPA. Therefore we will forego this study. We will give her a therapeutic dose of Lovenox this afternoon and restart her Eliquis after surgery tomorrow. We will also obtain an infectious disease consult given the group B strep in order to help to narrow her antibiotics and have a plan for outpatient antibiotic therapy We will contact the lining caser and discharge planning to help with obtaining a portable wound VAC We will obtain wound care consult while an inpatient and scheduled for home health care and follow-up in the wound care clinic for wound VAC changes She will likely require several days in the hospital to assure that she gets appropriate antibiotic coverage, and that her white blood cell count is decreasing The diagnosis, details the procedure and recovery, and plan of care discussed with the patient, all questions were answered, the patient expressed understanding agrees the plan of care as stated Subjective Patient said yesterday since admission she was dealing with nausea/vomiting and chills. She currently denies nausea now and feels somewhat better. Denies abdominal pain. Passed a BM this AM. Physical Exam Physical Exam: awake/alert Respiratory: normal respiratory effort Gastrointestinal (Abdomen): Percussion/Palpation: abdomen nontender midline wound dehiscence draining copious amounts of thin cloudy serosang. fluid. some subcutaneous necrotic tissue noted in wound. currently drainage not foul smelling Results & Data Vital Signs (Past 12 Hours) Vital Signs Temp Pulse Resp BP Pulse Ox 09/20/19 07:23 37.1 C 76 20 118/76 91 09/20/19 07:20 37.1 C 76 20 118/76 91 09/20/19 02:40 105/69 09/19/19 22:58 37.4 C 111 H 16 178/101 H 97 PG Care Time/CCT Total # of Minutes Spent Total Time Spent with Patient: Total time spent is greater than 50% in coordination of care (as documented) at patient's floor/unit and/or counseling patient: Coding Level of Care Code None Diagnoses Postoperative wound dehiscence T81.31XA Encounter type: initial encounter (1) Postoperative wound dehiscence Encounter type: initial encounter Qualified Code(s): T81.31XA - Disruption of external operation (surgical) wound, not elsewhere classified, initial encounter
--- NOTE | 2019-09-20 11:12 | CT Scan Report ---
CT OF THE ABDOMEN AND PELVIS WITH CONTRAST CLINICAL HISTORY: postop wound dehiscence, WBC 32 COMPARISON STUDY: CT of the abdomen and pelvis August 15, 2019. TECHNIQUE: Following IV administration of 94 mL of Optiray-320, axial images of the abdomen and pelvi s were obtained from the lung bases to the proximal femurs. Images were reviewed in the axial, sagitt al, and coronal planes. IV contrast was administered without complication. Automated exposure contro l was utilized for the study. A dose lowering technique was utilized adhering to the principles of A SANGITA. CT DOSE: 1566.63 mGy.cm FINDINGS: Imaged portions of the lower chest demonstrate possible pulmonary emboli, most evident with in the right lower lobe. These are suboptimally assessed on this exam. No pneumatosis, free air or po rtal venous gas is present. There is no biliary ductal dilatation status post cholecystectomy. The li marian is unremarkable with exception of suspected fatty infiltration. There are no hepatic lesions. The spleen, adrenal glands, kidneys and pancreas are unremarkable. There is no hydronephrosis. Colonic d iverticulosis is noted without evidence for acute diverticulitis. Postoperative findings within the r ight colon are noted. There is no evidence for a bowel obstruction. No abdominal or pelvic lymphadeno nicky is identified. Note is made of postoperative findings consistent with a ventral hernia repair. An open anterior abdominal wall wound is noted. Note is made of a 14.3 x 2.5 cm elongated fluid colle ction within the deep subcutaneous tissues of the lower anterior abdominal wall, immediately overlyin g the fascia. Posteriorly, this has mild peripheral enhancement. Anteriorly, no peripheral enhancemen t is noted and this collection is not well-defined. No suspicious osseous lesions are present. IMPRESSION: 1. Postoperative findings consistent with ventral hernia repair with open anterior abdominal wall wou nd. Operative bed infiltration may be postoperative however cellulitis could appear similar. Elongate d 14.3 x 2.5 cm fluid collection within the deep subcutaneous tissues of the lower anterior abdominal wall. This collection has minimal peripheral enhancement and is not well-defined. This does not refl ect a well-defined abscess. This could reflect a seroma, resolving hematoma or phlegmon. A developing abscess is within the differential. 2. Suspected pulmonary emboli within the lower lungs, suboptimally assessed on this exam. Of note, re cent lower extremity ultrasound showed deep venous thrombus. If clinically indicated, CT of the chest PE protocol could be obtained. This finding will be called/faxed to the ordering provider at time of dictation. ACT 112: Negative or not required by law. Electronically signed by: Edis Mccauley M.D. 09/20/2019 11:11 AM
[2019-09-20] MEDS ORDERED: ENOXAPARIN INJ 120 MG/0.8 ML SYR SQ ONE (15:00)
[2019-09-20 16:34] LABS: Hematocrit (blood only) 38.3 % (37-47); Hemoglobin 12.5 g/dL (12.0-16.0); Mean Corpuscular Hemoglobin 28.2 pg (25-34); Mean Corpuscular Hgb Conc 32.6 g/dL (32-36); Mean Corpuscular Volume 86.3 fL (80-100); Mean Platelet Volume 10.4 fL (7.4-10.4); Platelet Count 304 K/uL (130-400); RDW Coefficient of Variation 13.8 % (11.5-14.5); RDW Standard Deviation 43.8 fL (36.4-46.3); Red Blood Count 4.44 M/uL (4.2-5.4); White Blood Count 23.88 K/uL (4.8-10.8)
[2019-09-20 16:55] LABS: BUN Creatinine Ratio 23.2 (10-20); Calcium 8.9 mg/dl (8.5-10.1); Creatinine Clr Calc Pharmacy 91.7 ml/min; Est GFR (African American) 85.8; Potassium 3.3 mmol/L (3.5-5.1)
[2019-09-20] MEDS ORDERED: LACTATED RINGER'S 1,000 ML IV SCH (17:15)
--- NOTE | 2019-09-20 22:56 | Hospitalist Progress Note ---
Date of Service September 20, 2019 Assessment & Plan (1) Wound dehiscence: Concern for underlying seroma, possible infection as patient states drainage was foul smelling. She is afebrile, HD stable, non-toxic in appearance -Admit to medical floor -Wound appears infected. Will continue current ABX. -Patient will benefit from surgical intervention. will defer to surgical team. (2) Hypertension: Blood pressure elevated in ER, 173/115. Patient normotensive during prior encounters -Continue Amlodipine 5mg po qPM. She should receive a dose upon arrival to the floor -Continue to monitor BP (3) Hyperlipidemia: Chronic. Patient presently not taking medications for this -Encourage low cholesterol/heart healthy diet and physical activity (4) Depression with anxiety: Chronic. Well controlled -Continue escitalopram 20mg po qHS (5) Obstructive sleep apnea of adult: Patient does not use CPAP (6) DVT (deep venous thrombosis): Recently diagnosed LLE DVT -Continue Apixaban 5mg po BID. This has been held. Will order a one time dose of lovenox and will hold for surgery. (7) Former smoker: Patient recently quit. Congratulated for her efforts -Continue Varenicline 1mg po BID (8) GERD (gastroesophageal reflux disease): Chronic. Well controlled -Continue Famotidine Admission and Anticipated Discharge Date Admission Date: September 19, 2019 Subjective 49 yo female reports feeling well. She has no new complaints. She states she has had purulent drainage from her wound when the dressing is changed. She denies any fever, chills, nausea, vomiting. Review of Systems Review of Systems: All systems reviewed & are unremarkable except as noted in HPI & below Physical Exam Physical Exam: General: patient resting comfortably, NAD, non-toxic in appearance, AA&O x 4 Skin: warm, dry, intact, no rashes or lesions HEENT: NC/AT, PERRL, EOMI, anicteric sclera, conjunctiva without injection, external ear normal to inspection and nontender, nares patent, neck supple, trachea midline, no LAD, no thyromegaly, no JVD Heart: +S1/S2, regular, no m/r/g Lungs: equal air entry bilaterally, no rales/rhonchi/wheezes Abd: +BS, soft, ND, dressing in place clean/dry/intact. Photographs from abdominal wound viewed on patient's phone with area of dehiscence, some mild surrounding erythema Ext: warm, 2+ pulses in UE/LE bilaterally, no clubbing/cyanosis or edema Neuro: nonfocal, patient AA&O x 4, speech intact, no facial droop, moving all extremities on command with equal strength 5/5 Results & Data Results & Data ([facility]) Vital Signs (Past 12 Hours) Vital Signs Temp Pulse Resp BP BP Pulse Ox 09/20/19 22:49 38.3 C H 81 16 124/75 92 09/20/19 21:05 96 H 145/81 H 09/20/19 14:54 37.3 C 90 18 146/84 H 92 PG Care Time/CCT Total # of Minutes Spent Total Time Spent with Patient: Total time spent is greater than 50% in coordination of care (as documented) at patient's floor/unit and/or counseling patient: Coding Level of Care Code 30019 Subseq Hosp Care Lvl 3 Diagnoses Wound dehiscence T81.30XA Hypertension I10 Hypertension type: essential hypertension Hyperlipidemia E78.5 Hyperlipidemia type: unspecified Depression with anxiety F41.8 Obstructive sleep apnea of adult G47.33 DVT (deep venous thrombosis) I82.402 Affected thrombotic vein of extremity: unspecified vein of extremity Chronicity: unspecified DVT location: lower extremity Laterality: left Former smoker Z87.891 GERD (gastroesophageal reflux disease) K21.9 Esophagitis presence: esophagitis presence not specified Time Spent (min) 35 (1) DVT (deep venous thrombosis) Affected thrombotic vein of extremity: unspecified vein of extremity Chronicity: unspecified DVT location: lower extremity Laterality: left Qualified Code(s): I82.402 - Acute embolism and thrombosis of unspecified deep veins of left lower extremity (2) Hyperlipidemia Hyperlipidemia type: unspecified Qualified Code(s): E78.5 - Hyperlipidemia, unspecified (3) GERD (gastroesophageal reflux disease) Esophagitis presence: esophagitis presence not specified Qualified Code(s): K21.9 - Gastro-esophageal reflux disease without esophagitis (4) Hypertension Hypertension type: essential hypertension Qualified Code(s): I10 - Essential (primary) hypertension
[2019-09-21] MEDS: ACETAMINOPHEN 1,000 MG/100 ML VIAL IV PRN (00:08)
[2019-09-21 05:12] LABS: Basophils # (auto) 0.04 K/uL (0-0.2); Basophils % (auto) 0.2 %; Eosinophils # (auto) 0.28 K/uL (0-0.5); Eosinophils % (auto) 1.5 %; Hematocrit (blood only) 35.7 % (37-47); Immature Granulocytes # (auto) 0.04 K/uL (0.00-0.02); Immature Granulocytes % (auto) 0.2 %; Lymphocytes # (auto) 2.58 K/uL (1.2-3.4); Lymphocytes % (auto) 13.4 %; Mean Corpuscular Hemoglobin 29.3 pg (25-34); Mean Corpuscular Hgb Conc 33.6 g/dL (32-36); Mean Corpuscular Volume 87.1 fL (80-100); Mean Platelet Volume 10.7 fL (7.4-10.4); Monocytes # (auto) 1.64 K/uL (0.11-0.59); Monocytes % (auto) 8.5 %; Neutrophils # (auto) 14.61 K/uL (1.4-6.5); Neutrophils % (auto) 76.2 %; Platelet Count 276 K/uL (130-400); RDW Coefficient of Variation 13.8 % (11.5-14.5); White Blood Count 19.19 K/uL (4.8-10.8)
[2019-09-21] MEDS: metroNIDAZOLE 500 MG/100 ML BAG IV SCH ×3 (06:14→22:08)
[2019-09-21 06:42] LABS: BUN Creatinine Ratio 18.6 (10-20); Calcium 8.4 mg/dl (8.5-10.1); Creatinine Clr Calc Pharmacy 121.3 ml/min; Est GFR (African American) 117.4; Est GFR (Non-African American) 101.3; Potassium 3.1 mmol/L (3.5-5.1)
[2019-09-21] MEDS: VARENICLINE 1 MG TAB PO SCH ×2 (07:42→22:07)
--- NOTE | 2019-09-21 08:37 | Surgery Progress Note ---
Date of Service September 21, 2019 Assessment & Plan (1) Wound dehiscence: 49-year-old female status post component separation, now with apparent wound infection. Plan for OR today for abdominal wound incision and drainage, possible wound VAC placement The risks of the procedure were again reviewed to include bleeding, infection, need for future more extensive surgery, prolonged wound healing, and poor cosmesis, and the risk of anesthesia We will coordinate portable wound VAC and home health care Wound care nurses will be consulted, she will follow-up with the wound care center ID consult pending, awaiting antibiotic recommendations for group B strep Restart Eliquis this afternoon, known DVT and possible PE Hopeful for discharge at the end of the week, after wound VAC change and WBC downtrending Subjective 49-year-old female status post component separation, now with apparent superficial wound infection. Her white blood cell count came down yesterday, she is feeling much better. Still having drainage from the wound. N.p.o., plan for OR today. Physical Exam Constitutional: WD/WN, vitals as above + morbidly obese Gastrointestinal (Abdomen): Inspection/Auscultation: + abdominal surgical incision (Incision with dressing in place, there is a sinus tract with fluid dr aining out of it and opening of the wound approximately 2 x 3 cm.) Results & Data Vital Signs (Past 12 Hours) Vital Signs Temp Pulse Resp BP Pulse Ox 09/21/19 07:42 37.4 C 74 16 106/69 92 09/21/19 01:00 37.3 C 09/20/19 23:30 38.5 C H 09/20/19 22:49 38.3 C H 81 16 124/75 92 09/20/19 21:05 37.8 C H 96 H 145/81 H PG Care Time/CCT Total # of Minutes Spent Total Time Spent with Patient: Total time spent is greater than 50% in coordination of care (as documented) at patient's floor/unit and/or counseling patient: Coding Level of Care Code 51239 Subseq Hosp Care Lvl 1 Diagnoses Wound dehiscence T81.30XA
[2019-09-21] MEDS ORDERED: ONDANSETRON INJ 2 MG/ML 2 ML VIAL ONE (09:51)
[2019-09-21] MEDS ORDERED: PROPOFOL IV EMULSION 10 MG/ML 20 ML VIAL IV ONE (09:51)
[2019-09-21] MEDS ORDERED: DEXAMETHASONE SOD INJ 4 MG/ML VIAL ONE (09:51)
[2019-09-21] MEDS ORDERED: LIDOCAINE HCL 2% 2 ML VIAL/AMP(20MG/ML) INFIL ONE (09:51)
[2019-09-21] MEDS ORDERED: fentaNYL citrate 100 MCG/2 ML VIAL ONE ×2 (09:52→10:57)
[2019-09-21] MEDS ORDERED: MIDAZOLAM HCL 1 MG/ML 2ML VIAL ONE (09:52)
[2019-09-21] MEDS ORDERED: BUPIVACAINE 0.5 % 5 MG/1 ML MPF 30ML VIAL ONE ×2 (10:11→10:46)
[2019-09-21] MEDS ORDERED: LIDOCAINE/EPINEPHRINE 1% 20 ML VIAL ONE (10:12)
--- NOTE | 2019-09-21 10:22 | Anesthesiology Consultation ---
Date of Service September 21, 2019 Assessment & Plan Chart Review Chart Review: Acceptable Risk for Surgery Consults Requested none History Surgery Operation Date: 09/21/19 10:15 Proposed Procedures p Washout Abdominal Wound - Ken Lainez DO, FACS Height/Weight Height: 5 ft 5 in Weight: 110.8 kg Allergies Allergy/AdvReac Type Severity Reaction Status Date / Time cephalexin Allergy Intermediate HIVES Verified 09/12/19 11:55 erythromycin base Allergy Intermediate HIVES Verified 09/12/19 11:55 nitrofurantoin Allergy Intermediate HIVES Verified 09/12/19 11:55 Penicillins Allergy Intermediate HIVES Verified 09/12/19 11:55 influenza virus vacc AdvReac Intermediate HEADACHE & Verified 09/12/19 11:55 trivalent, split MYALGIA [From Fluzone] Sulfa (Sulfonamide AdvReac Mild HEADACHES Verified 09/12/19 11:55 Antibiotics) Medications Home Medications Medication Instructions Recorded Confirmed Last Taken escitalopram oxalate 20 mg tablet 20 mg PO HS #90 tab 02/16/19 09/19/19 08/23/19 21:30 albuterol sulfate 90 mcg/actuation 2 puffs INH Q6H PRN #18 gm 03/28/19 09/19/19 Unknown aerosol inhaler famotidine 20 mg PO QPM 06/24/19 09/19/19 08/23/19 21:30 meloxicam 15 mg PO QPM 06/24/19 09/19/19 08/23/19 21:30 varenicline 1 mg tablet 1 mg PO BID #56 tab 08/25/19 09/19/19 Unknown apixaban 5 mg tablet 5 mg PO BID #60 tab 09/08/19 09/19/19 Unknown amlodipine 5 mg tablet 5 mg PO PM #90 tab 09/15/19 09/19/19 Unknown Active Medications Generic Name Dose Route Start Last Admin Trade Name Freq PRN Reason Stop Dose Admin Amlodipine Besylate 5 mg 09/19/19 21:12 09/20/19 21:08 Norvasc PO 10/19/19 21:11 5 mg PM FABIAN Administration Escitalopram Oxalate 20 mg 09/19/19 21:12 09/20/19 21:07 Lexapro Tab PO 10/19/19 21:11 20 mg HS FABIAN Administration Famotidine 20 mg 09/19/19 21:12 09/20/19 21:08 Pepcid PO 10/19/19 21:11 20 mg QPM FABIAN Administration Ciprofloxacin 400 mg in 200 mls @ 100 mls/hr 09/19/19 22:00 09/21/19 02:15 Cipro IV 09/29/19 21:59 Infused Q12H FABIAN Infusion Protocol Metronidazole 500 mg in 100 mls @ 100 mls/hr 09/19/19 22:00 09/21/19 07:35 Flagyl IV 09/29/19 21:59 Infused Q8H FABIAN Infusion Acetaminophen 1,000 mg in 100 mls @ 400 mls/hr 09/20/19 23:56 09/21/19 00:25 Ofirmev IV 09/23/19 23:55 Infused Q8H PRN Infusion Fever Varenicline 1 mg 09/19/19 21:45 09/21/19 07:42 Chantix PO 10/19/19 21:44 Not Given BID FABIAN NPO Date Last Intake of Fluids: 09/20/19 Time Last Intake of Fluids: 23:50 Date Last Intake of Solids: 09/20/19 Time Last Intake of Solids: 20:00 Past Medical History Medical History Adenocarcinoma, 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 Anxiety DVT (deep venous thrombosis) Former smoker GERD (gastroesophageal reflux disease) Hyperlipidemia (Chronic) Hypertension (Chronic) Migraine HX Osteoarthritis Serrated adenoma of colon (Inactive) Sleep apnea Past Family History Family History Mother Diabetes Heart disease Myocardial infarction Cardiac disorder Father Ulcerative colitis Grandmother (Paternal) Breast cancer Grandfather (Paternal) Colorectal cancer Denies family history of Ovarian cancer Prostate cancer Hypertension Stroke Past Surgical History Surgical History H/O ovarian cystectomy History of adenoidectomy History of arthroscopy LEFT KNEE History of cataract surgery RT History of colonoscopy History of hemicolectomy 07/06/19 History of incisional hernia repair 07/06/19 History of tonsillectomy History of tooth extraction Hx of appendectomy Hx of cholecystectomy Status post medial meniscus repair Social History Smoking Status: Former smoker tobacco type: cigarettes Smoking cigarettes per day: 1/2 PPD Do You Dip or Chew Tobacco: No Smoking End Date: a few days ago Hx Alcohol Use: No Alcohol type: wine alcohol intake frequency: a few times a month Hx Substance Use: No substance use type: does not use Physical Exam Vital Signs Last Vital Signs Temp 37.2 C 09/21/19 09:32 Pulse 76 09/21/19 09:32 Resp 18 09/21/19 09:32 BP 118/76 09/21/19 09:32 Pulse Ox 94 09/21/19 09:32 Testing Laboratory Results 09/21/19 04:36 09/21/19 04:36 09/19/19 19:52 Gram Stain - Final Abdomen Aerobic and Anaerobic Culture - Preliminary Group B Beta Strep 09/19/19 21:36 Aerobic Blood Culture - Preliminary Blood No growth in Aerobic bottle after 24 hours. Anaerobic Blood Culture - Preliminary No growth in Anaerobic bottle after 24 hours. 09/19/19 21:39 Aerobic Blood Culture - Preliminary Blood No growth in Aerobic bottle after 24 hours. Anaerobic Blood Culture - Preliminary No growth in Anaerobic bottle after 24 hours.
[2019-09-21] MEDS ORDERED: BUPIVACAINE LIPOSOME 1.3% 266 MG/20 ML VIAL ONE (10:46)
[2019-09-21] MEDS: CIPROFLOXACIN / D5W 400 MG/200 ML BAG IV SCH ×2 (11:13→23:17)
--- NOTE | 2019-09-21 11:49 | Operative Report ---
PG Post Operative Report Pre & Post Diagnosis Operation Date: 09/21/19 10:15 Pre-Op Diagnosis: Wound dehiscence and infection Post-Op Diagnosis: Wound dehiscence and infection I identified the patient and participated in the time-out.: Yes Procedure Operation Date: 09/21/19 10:15 Actual Procedures p Washout Abdominal Wound with debridement, placement of negative pressure therapy device >50cm2 - Ken Lainez DO, MARY Surgeon Ken Lainez DO, MARY Fluid Power Mechanic Barbara Boyd Estimated Blood Loss 3 Findings Consistent with Post-Op Diagnosis Wound opened at area of separation and infection, pocket of purulent fluid encountered, did not appear to be indicated with mesh. Incision opened for approximately 10 to 11 cm, copious irrigation performed. Some necrotic fat debrided, good hemostasis. Culture sent of purulent fluid. Wound measures 11 cm x 6 cm x 3 cm in depth. There is undermining 10 cm bilaterally from the wound and 8 cm cephalad. Skin and subcutaneous tissues injected with Exparel mixed with Marcaine. Silver sponge placed in deep space overlying mesh, black sponge placed in subcutaneous tissues, wound VAC applied with good seal. Specimens Abdominal wound fluid culture Drains Wound VAC Anesthesia Type General Complications none Disposition Accompanied Patient To Recovery: No Disposition: Recovery Room Indications 49-year-old female status post incisional hernia repair with component separation, presented several weeks postoperatively with superficial wound dehiscence and evidence of infection. Plan for abdominal wound incision and drainage washout, and possible placement of wound VAC. The risks of the procedure were discussed, all questions were answered, and the patient agreed to proceed with surgery as planned. Description of Procedure The patient was properly identified, consented, and taken to the operating room where she was placed in the supine position. General endotracheal anesthesia was induced. SCDs and a safety belt were placed. Preoperative antibiotics were administered. The patient's dressings were removed and her abdomen was prepped and draped in the standard sterile fashion. Surgical timeout was performed and all parties were in agreement that this was the correct patient and procedure to be performed and we continued as planned. The wound separation was explored with blunt dissection and a pocket of purulent fluid was encountered. Cultures were sent of this fluid. This fluid was then suctioned and the incision was opened for approximately 10 to 11 cm. This pocket did not appear to communicate directly with the mesh. There was some inflamed and necrotic fat in the area of infection and inflammation which was debrided back to healthy tissue. Hemostasis was achieved. The wound was irrigated copiously with approximately 5 L of normal saline. The wound measured 11 cm x 6 cm x 3 cm in depth. It undermined 10 cm bilaterally and 8 cm cephalad. Exparel mixed with Marcaine was injected in the subcutaneous tissues. A silver wound VAC sponge was cut to fit an area of the deep space overlying the mesh. A black wound VAC sponge was then placed in the subcutaneous tissues. The wound VAC was then applied and is at 125mmHg continuous suction. There appeared to be a good seal and no leak was evident. The patient was extubated in the operating room and taken to the PACU where she recovered without apparent incident. All sponge, instrument and needle counts were correct at the conclusion of the procedure. The patient tolerated the procedure well. The physician's dietitian assistant was present and scrubbed for the entire the case. She was essential in positioning the patient, prepping and draping, retraction and exposure, debridement and irrigation of the wound, and placement of the wound VAC. I attest to the content of the Intraoperative Record and any orders documented therein. Any exceptions are noted below.
[2019-09-21] MEDS ORDERED: SUCCINYLCHOLINE CHLORIDE 20 MG/ML 10 ML VIAL ONE (11:53)
[2019-09-21] MEDS ORDERED: KETOROLAC 30 MG/ML VIAL ONE (11:53)
[2019-09-21] MEDS ORDERED: ROCURONIUM BROMIDE 10 MG/ML 5 ML VIAL ONE (11:53)
[2019-09-21] MEDS ORDERED: MoRPHine SULFATE 2 MG/ML CARP IV PRN (12:44)
[2019-09-21] MEDS ORDERED: OXYCODONE/ACETAMINOPHEN 5mg/325mg TAB PO PRN ×2 (12:44)
[2019-09-21] MEDS: POTASSIUM CHLORIDE / WTR 10 MEQ/100 ML PLCT IV SCH ×4 (13:01→17:41)
--- NOTE | 2019-09-21 13:06 | Infectious Disease Consult ---
Date of Consultation September 21, 2019 Assessment & Plan (1) Post op infection: will continue current abx and add vanco due to GBS. await OR cultures/findings. Blood cultures remain negative, wbc trending down, 19 today. afebrie. will likely require several weeks of abx, with hope of transitioning to po when able. History of Present Illness Attending Physician: Samir Gonzalez MD, FACS pt admitted with abd wound opening, drainage. she had ventral hernia repair done on 08/23, she was seen in surgery office on 09/11 for suture removal. On 09/17 noted wound opening, came to ER, CT abd - 14.3x2.5x5cm collection - hemtoma vs seroma vs absces. wbc in ER 32. she was started on cipro and kunz. tolerating well, remains on this. She has pcn allergy. 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 procalcitonin 0.6. Blood cultures done in ER negative to date, wound culture growing GBS, resistant to clinda. She is in the OR at the time of rounds for washout and vac placement, repeat cultures. Allergies Allergy/AdvReac Type Severity Reaction Status Date / Time cephalexin Allergy Intermediate HIVES Verified 09/12/19 11:55 erythromycin base Allergy Intermediate HIVES Verified 09/12/19 11:55 nitrofurantoin Allergy Intermediate HIVES Verified 09/12/19 11:55 Penicillins Allergy Intermediate HIVES Verified 09/12/19 11:55 influenza virus vacc AdvReac Intermediate HEADACHE & Verified 09/12/19 11:55 trivalent, split MYALGIA [From Fluzone] Sulfa (Sulfonamide AdvReac Mild HEADACHES Verified 09/12/19 11:55 Antibiotics) Home Medications Home Medications Medication Instructions Recorded Confirmed Type escitalopram oxalate 20 mg tablet 20 mg PO HS #90 tab 02/16/19 09/19/19 Rx albuterol sulfate 90 mcg/actuation 2 puffs INH Q6H PRN #18 gm 03/28/19 09/19/19 Rx aerosol inhaler famotidine 20 mg PO QPM 06/24/19 09/19/19 History meloxicam 15 mg PO QPM 06/24/19 09/19/19 History varenicline 1 mg tablet 1 mg PO BID #56 tab 08/25/19 09/19/19 Rx apixaban 5 mg tablet 5 mg PO BID #60 tab 09/08/19 09/19/19 Rx amlodipine 5 mg tablet 5 mg PO PM #90 tab 09/15/19 09/19/19 Rx Patient History Medical History Adenocarcinoma, 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 Anxiety DVT (deep venous thrombosis) Former smoker GERD (gastroesophageal reflux disease) Hyperlipidemia (Chronic) Hypertension (Chronic) Migraine HX Osteoarthritis Serrated adenoma of colon (Inactive) Sleep apnea Surgical History H/O ovarian cystectomy History of adenoidectomy History of arthroscopy LEFT KNEE History of cataract surgery RT History of colonoscopy History of hemicolectomy 07/06/19 History of incisional hernia repair 07/06/19 History of tonsillectomy History of tooth extraction Hx of appendectomy Hx of cholecystectomy Status post medial meniscus repair Family History Mother Diabetes Heart disease Myocardial infarction Cardiac disorder Father Ulcerative colitis Grandmother (Paternal) Breast cancer Grandfather (Paternal) Colorectal cancer Denies family history of Ovarian cancer Prostate cancer Hypertension Stroke Social History Preferred Language: Faroese Communication Ability: Effective Visual Impairment: No Limitations Hearing Ability: Normal Income Tax Preparer Required: No Beliefs That Will Affect Care: Protestant Protestant Beliefs: Congregational marital status: Current Living Situation: Spouse Current Living Situation Comment: special needs child at home Feels Safe at Home: Yes Smoking Status: Former smoker Tobacco Type: cigarettes ; Cigarettes Per Day: 1/2 PPD ; Second Hand Exposure: No ; Hx Alcohol Use: No Hx Substance Use: No Childhood Exposure to Second-Hand Smoke: Yes caffeine: Yes Dental Care, Regularly: Yes Physical Activity Frequency: Does not Exercise Seatbelt Use: always Sunscreen Use: Yes Review of Systems Review of Systems: per H&P Results & Data ([facility]) Vital Signs (Past 12 Hours) Vital Signs Temp Pulse Pulse Resp BP BP Pulse Ox 09/21/19 12:30 37.2 C 74 16 127/86 95 09/21/19 12:20 74 17 127/91 100 09/21/19 12:10 77 14 129/68 100 09/21/19 12:04 36.0 C L 77 16 124/73 98 09/21/19 09:32 37.2 C 76 18 118/76 94 09/21/19 07:42 37.4 C 74 16 106/69 92 Laboratory Results Microbiology 09/19/19 19:52 Abdomen Gram Stain - Final 09/19/19 19:52 Abdomen Aerobic and Anaerobic Culture - Preliminary Group B Beta Strep 09/19/19 21:36 Blood Aerobic Blood Culture - Preliminary No growth in Aerobic bottle after 24 hours. 09/19/19 21:36 Blood Anaerobic Blood Culture - Preliminary No growth in Anaerobic bottle after 24 hours. 09/19/19 21:39 Blood Aerobic Blood Culture - Preliminary No growth in Aerobic bottle after 24 hours. 09/19/19 21:39 Blood Anaerobic Blood Culture - Preliminary No growth in Anaerobic bottle after 24 hours. PG Care Time/CCT Total # of Minutes Spent Total Time Spent with Patient: Total time spent is greater than 50% in coordination of care (as documented) at patient's floor/unit and/or counseling patient: Coding Level of Care Code 39346 Inpt Consult Level 2 Diagnoses Post op infection T81.40XA
--- NOTE | 2019-09-21 13:19 | Anesthesiology Progress Note ---
Date of Service September 21, 2019 Anesthesia Post Procedure Vital Signs Vital Signs: Temp Pulse Pulse Resp BP BP Pulse Ox 09/21/19 13:16 76 16 118/80 93 09/21/19 12:30 37.2 C 74 16 127/86 95 09/21/19 12:20 74 17 127/91 100 09/21/19 12:10 77 14 129/68 100 09/21/19 12:04 36.0 C L 77 16 124/73 98 09/21/19 09:32 37.2 C 76 18 118/76 94 09/21/19 07:42 37.4 C 74 16 106/69 92 09/21/19 01:00 37.3 C 09/20/19 23:30 38.5 C H 09/20/19 22:49 38.3 C H 81 16 124/75 92 09/20/19 21:05 37.8 C H 96 H 145/81 H 09/20/19 14:54 37.3 C 90 18 146/84 H 92 Transfer of Care Handoff Completed per policy Notes Mental Status: alert / awake / arousable and participated in evaluation Patient Amnestic to Procedure: Yes Nausea / Vomiting: adequately controlled Pain: adequately controlled Airway Patency, RR, SpO2: stable & adequate BP & HR: stable & adequate Hydration State: stable & adequate Anesthetic Complications: no major complications apparent
[2019-09-21] MEDS ORDERED: VANCOMYCIN CONSULT ACTIVE PRN ×2 (17:07→17:08)
[2019-09-21] MEDS ORDERED: VANCOMYCIN HCL 2,500 MG in SODIUM CHLORIDE 0.9% 500 ML IV ONE (17:45)
--- NOTE | 2019-09-21 20:41 | Pharmacy Report ---
Pharmacy Abx Dose Short Note - Date of Service September 21, 2019 - Assessment & Plan Laboratory Tests 09/20/19 09/21/19 09/21/19 16:20 04:36 04:36 WBC 19.19 H Creatinine 0.90 0.68 Est Cr Clr Drug Dosing 91.7 121.3 Assessment 49 year old F (day #3) receiving Cipro/Flagyl for treatment of GI infection, s/p OR earlier today awaiting C&S Plan Vanc-IV: * Estimated pharmacokinetics: Ke~0.104 hr-1, T 1/2~6.6 hrs * LOADING DOSE: VANC 2500mg (~23mg/kg) IV x 1, then * MAINTENANCE DOSE: VANC 1250mg (~11mg/kg) IV q 9 hours. * A less than traditional loading &/or maintenance dose has been selected due to likelihood of drug accumulation over time in this obese patient. * Goal trough level: 15 to 20 mcg/mL * VANC Trough level ordered @ [facility] prior to 09/21 2200 dose Pharmacy will continue to follow and will adjust dose/frequency as necessary. Thank you.
[2019-09-21] MEDS: FAMOTIDINE 20 MG TAB PO SCH (22:06)
[2019-09-21] MEDS: APIXABAN 5 MG TABLET PO SCH (22:06)
[2019-09-21] MEDS: AMLODIPINE BESYLATE 5 MG TAB PO SCH (22:06)
[2019-09-21] MEDS: ESCITALOPRAM OXALATE 20 MG TAB PO SCH (22:07)
--- NOTE | 2019-09-21 23:28 | Hospitalist Progress Note ---
Date of Service September 21, 2019 Assessment & Plan (1) Wound dehiscence: Concern for underlying seroma, possible infection as patient states drainage was foul smelling. She is afebrile, HD stable, non-toxic in appearance -Admit to medical floor -Wound appears infected. Will continue current ABX. Will obtain sensitivities of FQ, likely can be discharged on levofloxacin. However will await sensitivities. Added vanco. -Patient will benefit from surgical intervention. will defer to surgical team. (2) Hypertension: Blood pressure elevated in ER, 173/115. Patient normotensive during prior encounters -Continue Amlodipine 5mg po qPM. She should receive a dose upon arrival to the floor -Continue to monitor BP (3) Hyperlipidemia: Chronic. Patient presently not taking medications for this -Encourage low cholesterol/heart healthy diet and physical activity (4) Depression with anxiety: Chronic. Well controlled -Continue escitalopram 20mg po qHS (5) Obstructive sleep apnea of adult: Patient does not use CPAP (6) DVT (deep venous thrombosis): Recently diagnosed LLE DVT -Continue Apixaban 5mg po BID. This has been held. Will order a one time dose of lovenox and will hold for surgery. (7) Former smoker: Patient recently quit. Congratulated for her efforts -Continue Varenicline 1mg po BID (8) GERD (gastroesophageal reflux disease): Chronic. Well controlled -Continue Famotidine Admission and Anticipated Discharge Date Admission Date: September 19, 2019 Subjective Patient reports feeling better. She is having less discomfort after washout and vac placement. Review of Systems Review of Systems: All systems reviewed & are unremarkable except as noted in HPI & below Physical Exam Physical Exam: General: patient resting comfortably, NAD, non-toxic in appearance, AA&O x 4 Skin: warm, dry, intact, no rashes or lesions HEENT: NC/AT, PERRL, EOMI, anicteric sclera, conjunctiva without injection, external ear normal to inspection and nontender, nares patent, neck supple, trachea midline, no LAD, no thyromegaly, no JVD Heart: +S1/S2, regular, no m/r/g Lungs: equal air entry bilaterally, no rales/rhonchi/wheezes Abd: +BS, soft, ND, dressing in place clean/dry/intact. Photographs from abdominal wound viewed on patient's phone with area of dehiscence, some mild surrounding erythema Ext: warm, 2+ pulses in UE/LE bilaterally, no clubbing/cyanosis or edema Neuro: nonfocal, patient AA&O x 4, speech intact, no facial droop, moving all extremities on command with equal strength 5/5 Results & Data Results & Data ([facility]) Vital Signs (Past 12 Hours) Vital Signs Temp Pulse Pulse Resp BP Pulse Ox 09/21/19 20:16 36.9 C 67 18 128/78 93 09/21/19 15:52 72 16 122/79 95 09/21/19 15:07 36.6 C 71 16 106/69 93 09/21/19 14:05 37.1 C 71 18 113/73 95 09/21/19 14:01 77 16 126/84 95 09/21/19 13:16 76 16 118/80 93 09/21/19 12:30 37.2 C 74 16 127/86 95 09/21/19 12:20 74 17 127/91 100 09/21/19 12:10 77 14 129/68 100 09/21/19 12:04 36.0 C L 77 16 124/73 98 PG Care Time/CCT Total # of Minutes Spent Total Time Spent with Patient: Total time spent is greater than 50% in coordination of care (as documented) at patient's floor/unit and/or counseling patient: Coding Level of Care Code 36841 Subseq Hosp Care Lvl 3 Diagnoses Wound dehiscence T81.30XA Hypertension I10 Hypertension type: essential hypertension Hyperlipidemia E78.5 Hyperlipidemia type: unspecified Depression with anxiety F41.8 Obstructive sleep apnea of adult G47.33 DVT (deep venous thrombosis) I82.402 Affected thrombotic vein of extremity: unspecified vein of extremity Chronicity: unspecified DVT location: lower extremity Laterality: left Former smoker Z87.891 GERD (gastroesophageal reflux disease) K21.9 Esophagitis presence: esophagitis presence not specified Time Spent (min) 35 (1) DVT (deep venous thrombosis) Affected thrombotic vein of extremity: unspecified vein of extremity Chronicity: unspecified DVT location: lower extremity Laterality: left Qualified Code(s): I82.402 - Acute embolism and thrombosis of unspecified deep veins of left lower extremity (2) Hyperlipidemia Hyperlipidemia type: unspecified Qualified Code(s): E78.5 - Hyperlipidemia, unspecified (3) GERD (gastroesophageal reflux disease) Esophagitis presence: esophagitis presence not specified Qualified Code(s): K21.9 - Gastro-esophageal reflux disease without esophagitis (4) Hypertension Hypertension type: essential hypertension Qualified Code(s): I10 - Essential (primary) hypertension
[2019-09-22] MEDS: VANCOMYCIN HCL 1,250 MG in SODIUM CHLORIDE 0.9% 250 ML IV SCH ×2 (04:47→13:22)
[2019-09-22 05:52] LABS: Basophils # (auto) 0.01 K/uL (0-0.2); Basophils % (auto) 0.1 %; Eosinophils # (auto) 0.05 K/uL (0-0.5); Eosinophils % (auto) 0.3 %; Hematocrit (blood only) 33.8 % (37-47); Hemoglobin 10.9 g/dL (12.0-16.0); Immature Granulocytes # (auto) 0.04 K/uL (0.00-0.02); Immature Granulocytes % (auto) 0.3 %; Lymphocytes # (auto) 1.23 K/uL (1.2-3.4); Lymphocytes % (auto) 8.4 %; Mean Corpuscular Hemoglobin 27.8 pg (25-34); Mean Corpuscular Hgb Conc 32.2 g/dL (32-36); Mean Corpuscular Volume 86.2 fL (80-100); Mean Platelet Volume 10.5 fL (7.4-10.4); Monocytes # (auto) 1.25 K/uL (0.11-0.59); Monocytes % (auto) 8.5 %; Neutrophils # (auto) 12.11 K/uL (1.4-6.5); Neutrophils % (auto) 82.4 %; Platelet Count 286 K/uL (130-400); RDW Coefficient of Variation 13.5 % (11.5-14.5); RDW Standard Deviation 43.1 fL (36.4-46.3); Red Blood Count 3.92 M/uL (4.2-5.4); White Blood Count 14.69 K/uL (4.8-10.8)
[2019-09-22] MEDS: metroNIDAZOLE 500 MG/100 ML BAG IV SCH ×3 (05:56→22:12)
[2019-09-22 06:32] LABS: BUN Creatinine Ratio 17.7 (10-20); Calcium 8.6 mg/dl (8.5-10.1); Creatinine Clr Calc Pharmacy 133.1 ml/min; Est GFR (Non-African American) 104.4; Potassium 3.6 mmol/L (3.5-5.1)
--- NOTE | 2019-09-22 08:30 | Surgery Progress Note ---
Date of Service September 22, 2019 Assessment & Plan (1) Postoperative wound dehiscence: POD 1 wash out, vac placement WBC decreasing cont IV abx, await cx for home selection Subjective no c/o, no analgesics Physical Exam Gastrointestinal (Abdomen): Percussion/Palpation: abdomen soft (wound vac in place, decreasing drainage) Results & Data Vital Signs (Past 12 Hours) Vital Signs Temp Pulse Pulse Resp BP BP Pulse Ox 09/22/19 07:08 37 C 56 L 18 120/76 92 09/22/19 03:16 36.8 C 57 L 16 123/71 95 09/21/19 23:15 36.7 C 74 16 133/79 91 PG Care Time/CCT Total # of Minutes Spent Total Time Spent with Patient: Total time spent is greater than 50% in coordination of care (as documented) at patient's floor/unit and/or counseling patient: Coding Level of Care Code None Diagnoses Postoperative wound dehiscence T81.31XA Encounter type: initial encounter (1) Postoperative wound dehiscence Encounter type: initial encounter Qualified Code(s): T81.31XA - Disruption of external operation (surgical) wound, not elsewhere classified, initial encounter
[2019-09-22] MEDS: VARENICLINE 1 MG TAB PO SCH ×2 (08:48→21:35)
[2019-09-22] MEDS: APIXABAN 5 MG TABLET PO SCH ×2 (08:48→21:35)
[2019-09-22] MEDS: CIPROFLOXACIN / D5W 400 MG/200 ML BAG IV SCH ×2 (09:21→22:50)
[2019-09-22] MEDS: ACETAMINOPHEN 1,000 MG/100 ML VIAL IV PRN (19:49)
[2019-09-22] MEDS ORDERED: LEVOFLOXACIN/D5W 750 MG/150 ML BAG IV SCH (21:00)
[2019-09-22] MEDS ORDERED: VANCOMYCIN TROUGH ONE (21:30)
[2019-09-22] MEDS: FAMOTIDINE 20 MG TAB PO SCH (21:35)
[2019-09-22] MEDS: AMLODIPINE BESYLATE 5 MG TAB PO SCH (21:36)
[2019-09-22] MEDS: ESCITALOPRAM OXALATE 20 MG TAB PO SCH (21:36)
--- NOTE | 2019-09-22 23:23 | Hospitalist Progress Note ---
Date of Service September 22, 2019 Assessment & Plan (1) Wound dehiscence: Concern for underlying seroma, possible infection as patient states drainage was foul smelling. She is afebrile, HD stable, non-toxic in appearance -Admit to medical floor -Wound appears infected. -Will stop vanco. Will switch cipro to levofloxacin after discussing case with ID. Will stop metronidazol in AM as well. Patient can be discharged on PO levofloxacin once cleared by primary team. D/W ID. called lab for sensitivites. (2) Hypertension: Blood pressure elevated in ER, 173/115. Patient normotensive during prior encounters -Continue Amlodipine 5mg po qPM. She should receive a dose upon arrival to the floor -Continue to monitor BP (3) Hyperlipidemia: Chronic. Patient presently not taking medications for this -Encourage low cholesterol/heart healthy diet and physical activity (4) Depression with anxiety: Chronic. Well controlled -Continue escitalopram 20mg po qHS (5) Obstructive sleep apnea of adult: Patient does not use CPAP (6) DVT (deep venous thrombosis): Recently diagnosed LLE DVT -Continue Apixaban 5mg po BID. (7) Former smoker: Patient recently quit. Congratulated for her efforts -Continue Varenicline 1mg po BID (8) GERD (gastroesophageal reflux disease): Chronic. Well controlled -Continue Famotidine Admission and Anticipated Discharge Date Admission Date: September 19, 2019 Subjective 49 yo female reports no new symptoms. She only reports thather wound is starting to hurt a little more today but the pain continues to be mild. Review of Systems Review of Systems: All systems reviewed & are unremarkable except as noted in HPI & below Physical Exam Physical Exam: General: patient resting comfortably, NAD, non-toxic in appearance, AA&O x 4 Skin: warm, dry, intact, no rashes or lesions HEENT: NC/AT, PERRL, EOMI, anicteric sclera, conjunctiva without injection, external ear normal to inspection and nontender, nares patent, neck supple, trachea midline, no LAD, no thyromegaly, no JVD Heart: +S1/S2, regular, no m/r/g Lungs: equal air entry bilaterally, no rales/rhonchi/wheezes Abd: +BS, soft, ND, wound vac in place. Ext: warm, 2+ pulses in UE/LE bilaterally, no clubbing/cyanosis or edema Neuro: nonfocal, patient AA&O x 4, speech intact, no facial droop, moving all extremities on command with equal strength 5/5 Results & Data Results & Data ([facility]) Vital Signs (Past 12 Hours) Vital Signs Temp Pulse Resp BP Pulse Ox 09/22/19 15:21 36.2 C L 63 16 132/83 94 PG Care Time/CCT Total # of Minutes Spent Total Time Spent with Patient: Total time spent is greater than 50% in coordination of care (as documented) at patient's floor/unit and/or counseling patient: Coding Level of Care Code 72135 Subseq Hosp Care Lvl 3 Diagnoses Wound dehiscence T81.30XA Hypertension I10 Hypertension type: essential hypertension Hyperlipidemia E78.5 Hyperlipidemia type: unspecified Depression with anxiety F41.8 Obstructive sleep apnea of adult G47.33 DVT (deep venous thrombosis) I82.402 Affected thrombotic vein of extremity: unspecified vein of extremity Chronicity: unspecified DVT location: lower extremity Laterality: left Former smoker Z87.891 GERD (gastroesophageal reflux disease) K21.9 Esophagitis presence: esophagitis presence not specified Time Spent (min) 35 (1) DVT (deep venous thrombosis) Affected thrombotic vein of extremity: unspecified vein of extremity Chronicity: unspecified DVT location: lower extremity Laterality: left Qualified Code(s): I82.402 - Acute embolism and thrombosis of unspecified deep veins of left lower extremity (2) Hyperlipidemia Hyperlipidemia type: unspecified Qualified Code(s): E78.5 - Hyperlipidemia, unspecified (3) GERD (gastroesophageal reflux disease) Esophagitis presence: esophagitis presence not specified Qualified Code(s): K21.9 - Gastro-esophageal reflux disease without esophagitis (4) Hypertension Hypertension type: essential hypertension Qualified Code(s): I10 - Essential (primary) hypertension
[2019-09-23 05:32] LABS: Basophils # (auto) 0.04 K/uL (0-0.2); Basophils % (auto) 0.4 %; Eosinophils # (auto) 0.27 K/uL (0-0.5); Eosinophils % (auto) 2.8 %; Hematocrit (blood only) 32.7 % (37-47); Hemoglobin 10.7 g/dL (12.0-16.0); Immature Granulocytes # (auto) 0.02 K/uL (0.00-0.02); Immature Granulocytes % (auto) 0.2 %; Lymphocytes # (auto) 2.42 K/uL (1.2-3.4); Lymphocytes % (auto) 24.8 %; Mean Corpuscular Hemoglobin 28.3 pg (25-34); Mean Corpuscular Hgb Conc 32.7 g/dL (32-36); Mean Corpuscular Volume 86.5 fL (80-100); Mean Platelet Volume 10.2 fL (7.4-10.4); Monocytes # (auto) 0.77 K/uL (0.11-0.59); Monocytes % (auto) 7.9 %; Neutrophils # (auto) 6.25 K/uL (1.4-6.5); Neutrophils % (auto) 63.9 %; Platelet Count 248 K/uL (130-400); RDW Coefficient of Variation 13.6 % (11.5-14.5); RDW Standard Deviation 43.2 fL (36.4-46.3); Red Blood Count 3.78 M/uL (4.2-5.4); White Blood Count 9.77 K/uL (4.8-10.8)
[2019-09-23 06:01] LABS: Calcium 8.2 mg/dl (8.5-10.1); Creatinine Clr Calc Pharmacy 139.8 ml/min; Est GFR (Non-African American) 106.1; Potassium 3.5 mmol/L (3.5-5.1)
[2019-09-23] MEDS: metroNIDAZOLE 500 MG/100 ML BAG IV SCH (06:09)
[2019-09-23] MEDS: APIXABAN 5 MG TABLET PO SCH (09:15)
[2019-09-23] MEDS: VARENICLINE 1 MG TAB PO SCH (09:15)
--- NOTE | 2019-09-23 10:35 | Surgery Progress Note ---
Date of Service September 23, 2019 Assessment & Plan (1) Post op infection: ok for d/c on Levoquin VNA for wound vac care at home f/u with Dr. Lainez within a week Subjective pt seen. feeling well with no new complaints. would like to go home. Physical Exam Physical Exam: unchanged. nad wound vac in place with small amount of serous output. Results & Data Vital Signs (Past 12 Hours) Vital Signs Temp Pulse Resp BP Pulse Ox 09/23/19 07:32 36.9 C 66 18 136/83 96 09/22/19 23:17 37.0 C 55 L 15 120/79 94 PG Care Time/CCT Total # of Minutes Spent Total Time Spent with Patient: Total time spent is greater than 50% in coordination of care (as documented) at patient's floor/unit and/or counseling patient: Coding Level of Care Code None Diagnoses Post op infection T81.40XA
--- NOTE | 2019-09-23 11:29 | Hospitalist Progress Note ---
Date of Service September 23, 2019 Assessment & Plan (1) Wound dehiscence: Concern for underlying seroma, possible infection as patient states drainage was foul smelling. She is afebrile, HD stable, non-toxic in appearance -Admit to medical floor -Wound appears infected. -Will stop vanco. Will switch cipro to levofloxacin after discussing case with ID. Will stop metronidazol in AM as well. Patient can be discharged on PO levofloxacin once cleared by primary team. D/W ID. May need extended course of 21 days. Patient will followup with surgical team to discuss extending 10 day course of levofloxacin, (2) Hypertension: Blood pressure elevated in ER, 173/115. Patient normotensive during prior encounters -Continue Amlodipine 5mg po qPM. She should receive a dose upon arrival to the floor -Continue to monitor BP (3) Hyperlipidemia: Chronic. Patient presently not taking medications for this -Encourage low cholesterol/heart healthy diet and physical activity (4) Depression with anxiety: Chronic. Well controlled -Continue escitalopram 20mg po qHS (5) Obstructive sleep apnea of adult: Patient does not use CPAP (6) DVT (deep venous thrombosis): Recently diagnosed LLE DVT -Continue Apixaban 5mg po BID. (7) Former smoker: Patient recently quit. Congratulated for her efforts -Continue Varenicline 1mg po BID (8) GERD (gastroesophageal reflux disease): Chronic. Well controlled -Continue Famotidine Admission and Anticipated Discharge Date Admission Date: September 19, 2019 Subjective Patient reports feeling well. Review of Systems Review of Systems: All systems reviewed & are unremarkable except as noted in HPI & below Physical Exam Physical Exam: General: patient resting comfortably, NAD, non-toxic in ap pearance, AA&O x 4 Skin: warm, dry, intact, no rashes or lesions HEENT: NC/AT, PERRL, EOMI, anicteric sclera, conjunctiva without injection, external ear normal to inspection and nontender, nares patent, neck supple, trachea midline, no LAD, no thyromegaly, no JVD Heart: +S1/S2, regular, no m/r/g Lungs: equal air entry bilaterally, no rales/rhonchi/wheezes Abd: +BS, soft, ND, wound vac in place. Ext: warm, 2+ pulses in UE/LE bilaterally, no clubbing/cyanosis or edema Neuro: nonfocal, patient AA&O x 4, speech intact, no facial droop, moving all extremities on command with equal strength 5/5 Results & Data Results & Data ([facility]) Vital Signs (Past 12 Hours) Vital Signs Temp Pulse Resp BP Pulse Ox 09/23/19 07:32 36.9 C 66 18 136/83 96 PG Care Time/CCT Total # of Minutes Spent Total Time Spent with Patient: Total time spent is greater than 50% in coordination of care (as documented) at patient's floor/unit and/or counseling patient: Coding Level of Care Code 19406 Subseq Hosp Care Lvl 2 Diagnoses Wound dehiscence T81.30XA Hypertension I10 Hypertension type: essential hypertension Hyperlipidemia E78.5 Hyperlipidemia type: unspecified Depression with anxiety F41.8 Obstructive sleep apnea of adult G47.33 DVT (deep venous thrombosis) I82.402 Affected thrombotic vein of extremity: unspecified vein of extremity Chronicity: unspecified DVT location: lower extremity Laterality: left Former smoker Z87.891 GERD (gastroesophageal reflux disease) K21.9 Esophagitis presence: esophagitis presence not specified Time Spent (min) 25 (1) DVT (deep venous thrombosis) Affected thrombotic vein of extremity: unspecified vein of extremity Chronicity: unspecified DVT location: lower extremity Laterality: left Qualified Code(s): I82.402 - Acute embolism and thrombosis of unspecified deep veins of left lower extremity (2) Hyperlipidemia Hyperlipidemia type: unspecified Qualified Code(s): E78.5 - Hyperlipidemia, unspecified (3) GERD (gastroesophageal reflux disease) Esophagitis presence: esophagitis presence not specified Qualified Code(s): K21.9 - Gastro-esophageal reflux disease without esophagitis (4) Hypertension Hypertension type: essential hypertension Qualified Code(s): I10 - Essential (primary) hypertension
--- NOTE | 2019-09-26 12:53 | Discharge Summary ---
Date of Service September 26, 2019 Admission HPI Per Admitting Provider 49 year old female had a ventral hernia with mesh performed on 08/24/[address] Lainez. She had a post-op course complicated by DVT for which she was placed on Eliquis. She was seen in the office on 09/12/19 at which time her staple were removed. She was doing well but noted over the past 2 days she was not using her abdominal binder. Last night she noted her skin edges broke apart and she had some foul smelling dark colored discharge. No fevers noted but since arrival to ED she had noted chills. No N/V. Her bowels are functioning normally and her apatite is normal. She was seen in the ED by myself and Dr. Gonzalez and felt admission was required. Principal Diagnosis Post-operative wound dehiscence Discharge Exam awake/alert Constitutional no acute distress Gastrointestinal (Abdomen) wound vac in place draining small amount of serous output Discharge Data Allergies Allergy/AdvReac Type Severity Reaction Status Date / Time cephalexin Allergy Intermediate HIVES Verified 09/12/19 11:55 erythromycin base Allergy Intermediate HIVES Verified 09/12/19 11:55 nitrofurantoin Allergy Intermediate HIVES Verified 09/12/19 11:55 Penicillins Allergy Intermediate HIVES Verified 09/12/19 11:55 influenza virus vacc AdvReac Intermediate HEADACHE & Verified 09/12/19 11:55 trivalent, split MYALGIA [From Fluzone] Sulfa (Sulfonamide AdvReac Mild HEADACHES Verified 09/12/19 11:55 Antibiotics) pork derived (porcine) AdvReac Verified 09/22/19 13:39 Pork/Porcine Containing AdvReac Verified 09/22/19 13:33 Products Consultations 09/19/19 20:07 ED Decision to Admit Stat 09/19/19 21:12 Consult Hospitalist Stat 09/20/19 14:20 Consult Infectious Diseases Routine 09/20/19 14:25 Consult Case Management - Discharge Planning Routine Procedures Performed Operation Date: 09/21/19 10:15 Actual Procedures p Washout Abdominal Wound(Not Applicable) - Ken Lainez DO, FACS Ordered Studies 09/20/19 10:45 CT abd pelvis IV con only Routine Hospital Course (1) Postoperative wound dehiscence: This is a 49y F who recently underwent an open ventral hernia repair with mesh on 08/24/19 who presented to the [facility] ED on 09/19/19 with concerns her wound has opened up & was associated with foul smelling drainage. Patient was evaluated in the ED, found to have a WBC of 19 and was admitted under the surgical service for ongoing management. The patient was started on IV abx (cipro/flagyl) and her wound was packed with a gauze dressing. The hospitalist service was consulted for assistance with medical management during her admission. On 08/24 patient's WBC jumped to 32 and she had low grade temps overnight. A CT a/p was obtained for further evaluation that revealed a 14.3 x 2.5 cm fluid collection within the deep subcutaneous tissues of the lower anterior abdominal wall. Decision was made to take the patient to the OR for an abdominal washout. Patient's home eliquis was held pre-op and she was given a dose of Lovenox the evening prior to OR. On 08/24 the patient underwent abdominal washout out of her wound with placement of wound vac with Dr. Lainez. She tolerated the procedure well, see op note for full details. Infectious disease was consulted for abx guidance, her wound cultures growing group b strep, and vancomycin was added to her current abx regimen. Her WBC continued to trend down nicely thereafter. Post operatively her diet was advanced as tolerated and pain was well controlled. Wound care evaluated the patient and set her up with follow up in the wound care clinic. On 09/22 the patient's WBC was 9.7. Her cultures were sensitive to levaquin and pt was transitioned from IV abx to oral levaquin to complete the course of antibiotics at home. Wound care was able to place home vac on patient (with plans to have it changed //Thu and she was deemed stable for discharge to home with close follow up in surgery clinic. Total Time Total Time Spent Total Time Spent (In Minutes): 15 Discharge Plan Discharge Items Patient Disposition: Home - Home Health Services Reason For Visit: WOUND INFECTION Discharge Diagnosis: wound dehiscence Activity: Per Instructions section Lifting: No more than 10 pounds Bathing Comment: may shower Exercise/Sports: Wait until after follow-up appointment Driving/Machine Use: Resume 3 days after discharge Non-emergency contact: Surgeon Call non-emergency contact if: you have any medication questions, your symptoms worsen, your pain is not controlled, your pain is worsening, your pain is unu sual for you, you have a fever, your temperature is above 101.5, your wound has increased redness, your wound has increased drainage and your wound pain has increased Follow-up/Referrals: Galileo Sanchez MD [Primary Care Provider] - Ken Lainez DO, FACS [Physician] - 09/27/19 9:00 am () Diet: Regular Addtl Attending Provider Instructions: You will be discharged with a wound vac in place. This will likely be changed every Mon/Thu/Fri. You should remain off work until seen by Dr. Lainez in 7-10 days. Pending Studies at Discharge: No Stand-Alone Forms: My [facility] [employer], Smoking Cessation Medications and DC Order Prescriptions: New levofloxacin [Levaquin] 500 mg tablet 500 mg PO DAILY 10 Days Qty: 10 RF: 0 Continued escitalopram oxalate 20 mg tablet 20 mg PO HS Qty: 90 RF: 3 albuterol sulfate [Ventolin HFA] 90 mcg/actuation HFA aerosol inhaler 2 puffs INH Q6H PRN (Reason: shortness of breath or wheezing) Qty: 18 RF: 3 amlodipine 5 mg tablet 5 mg PO PM Qty: 90 RF: 3 Eliquis 5 mg tablet 5 mg PO BID Qty: 60 RF: 6 meloxicam 15 mg tablet 15 mg PO QPM RF: 0 famotidine 20 mg tablet 20 mg PO QPM RF: 0 No Action Chantix Continuing Month Box 1 mg tablet 1 mg PO BID Qty: 56 RF: 0 Discharge Orders: Discharge Order (Routine); Ordered 09/23/19 Ordered By: Krish Graham Admission Data Admit Date/Time: 09/19/19 20:07 Attending Provider: Samir Gonzalez Admit Provider: Samir Gonzalez Primary Care Provider: Galileo Sanchez Other Providers: Jw Gray ; Samir Gonzalez ; Minda Verma ; Amparo Martinez ; [facility] Other Interventions: Discharge Summary Assessment (RN) Last Done: 09/23/19 12:00 DC Date/Time DO NOT enter until pt leaves facility: 09/23/19 13:55 Coding Level of Care Code D/C Day Management <30 mins Diagnoses Postoperative wound dehiscence T81.31XA Encounter type: initial encounter
--- NOTE | 2019-10-21 06:54 | Coding Query ---
DEBRIDEMENT DOCUMENTATION To promote full compliance with coding requirements relating to patient care, physician participation is requested in all cases of cognos architect uncertainty. Please assist us with the question(s) below: Please place an X in the parenthesis (x). If other, please document the finding: Type of Debridement: ( x ) Excisional Debridement- Cutting away necrotic, devitalized tissue or slough to the level of viable tissue using a sharp instrument (i.e. scalpel, scissors, etc.) ( ) Non Excisional Debridement- The removal of necrotic, devitalized tissue or slough by means of scraping, mechanical brushing, flushing, or washing (i.e. irrigation,whirlpool);minor removal of loose fragments. ( ) Other (please specify): Instrument Used: ( ) Scissors ( x ) Scalpel ( ) Curette ( x) Other (please specify):bovey electrocautery Depth of Debridement: ( ) Skin ( x ) Skin and Subcutaneous Tissue ( ) Skin, Subcutaneous Tissue and Muscle ( ) Skin, Subcutaneous Tissue, Muscle and Bone ( ) Other (please specify): Please Specify the Size of Debridement in cm2: 66cm2 Thank you Doreen Evangelista PS this only applies to my surgical case in September. Any questions regarding subsequent debridement should go through wound care. GLENROY
== END 2019-09-23 13:55 | disposition home health service (06) | DRG 921 ==
LOC: ED 17:25 → 3E 20:07

== ENCOUNTER 2020-12-26 11:41 | Observation (INO) ==
[2020-12-26 13:52] LABS: Basophils # (auto) 0.04 K/uL (0-0.2); Basophils % (auto) 0.7 %; Eosinophils # (auto) 0.21 K/uL (0-0.5); Eosinophils % (auto) 3.4 %; Hematocrit (blood only) 41.2 % (37-47); Hemoglobin 13.7 g/dL (12.0-16.0); Immature Granulocytes # (auto) 0.01 K/uL (0.00-0.02); Immature Granulocytes % (auto) 0.2 %; Lymphocytes # (auto) 1.68 K/uL (1.2-3.4); Lymphocytes % (auto) 27.5 %; Mean Corpuscular Hemoglobin 28.7 pg (25-34); Mean Corpuscular Hgb Conc 33.3 g/dL (32-36); Mean Corpuscular Volume 86.4 fL (80-100); Mean Platelet Volume 10.1 fL (7.4-10.4); Monocytes # (auto) 0.57 K/uL (0.11-0.59); Monocytes % (auto) 9.3 %; Neutrophils % (auto) 58.9 %; Platelet Count 251 K/uL (130-400); RDW Coefficient of Variation 13.8 % (11.5-14.5); RDW Standard Deviation 43.1 fL (36.4-46.3); Red Blood Count 4.77 M/uL (4.2-5.4); White Blood Count 6.11 K/uL (4.8-10.8)
[2020-12-26 14:13] LABS: Albumin Level 3.5 gm/dl (3.4-5.0); BUN Creatinine Ratio 20.4 (10-20); Calcium 9.1 mg/dl (8.5-10.1); Est GFR (African American) 123.5 ml/min; Est GFR (Non-African American) 106.6 ml/min; Potassium 4.1 mmol/L (3.5-5.1)
[2020-12-26 14:16] LABS: Albumin Globulin Ratio 0.9 (0.9-2); Bilirubin,Total 0.3 mg/dl (0.2-1); Total Protein 7.5 gm/dl (6.4-8.2)
--- NOTE | 2020-12-26 14:22 | Emergency Department Note ---
History of Present Illness General Chief complaint: Infection, Wound Stated complaint: LOWER ABD WOUND,INFECTION Time Seen by Provider: 12/26/20 13:02 Source: patient Mode of arrival: ambulatory Limitations: no limitations History of Present Illness Maximum Pain Intensity: 0 This patient is a 50-year-old female who presents to the emergency department for evaluation of an infected wound to her lower abdomen. She states that she had a hernia surgery and the wound never healed correctly. She had issues with it for several months and had a wound VAC last year. She states that since May of this year, the wound has been well-healed. However, she woke up this morning and noticed pus coming from the wound. She reports there is drainage coming from the area of her umbilicus. She denies any pain, but states that she has some numbness in the area due to all of the surgeries. She denies any fevers, nausea/vomiting or changes in bowel movements. Home Medications Medication Instructions Recorded Confirmed Type escitalopram oxalate 20 mg tablet 20 mg PO HS #90 tab 02/21/20 12/28/20 Rx famotidine 20 mg tablet 20 mg PO BID #180 tab 03/22/20 12/28/20 Rx apixaban 5 mg tablet (Eliquis) 5 mg PO BID #60 tab 07/03/20 12/28/20 Rx amlodipine 5 mg tablet 5 mg PO PM #90 tab 10/16/20 12/28/20 Rx clindamycin HCl 300 mg capsule 300 mg PO Q8H 14 Days #42 cap 12/27/20 12/28/20 Rx hydrocodone 5 mg-acetaminophen 325 1 - 2 tab PO .q4h- q6h PRN #7 tab 12/27/20 12/28/20 Rx mg tablet Allergies Allergy/AdvReac Type Severity Reaction Status Date / Time cephalexin Allergy Intermediate HIVES Verified 12/26/20 16:08 erythromycin base Allergy Intermediate HIVES Verified 12/26/20 16:08 nitrofurantoin Allergy Intermediate HIVES Verified 12/26/20 16:08 Penicillins Allergy Intermediate HIVES Verified 12/26/20 16:08 influenza virus vacc AdvReac Intermediate HEADACHE & Verified 12/26/20 16:08 trivalent, split MYALGIA [From Fluzone] Sulfa (Sulfonamide AdvReac Mild HEADACHES Verified 12/26/20 16:08 Antibiotics) pork derived (porcine) AdvReac Verified 12/26/20 16:08 Pork/Porcine Containing AdvReac Verified 12/26/20 16:08 Products Past Med/Surg History Medical History Adenocarcinoma, 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 Lainez 09/21/19 History of adenoidectomy History of arthroscopy LEFT KNEE History of cataract surgery RT History of colonoscopy History of hemicolectomy 07/06/19 History of incisional hernia repair 07/06/19 History of tonsillectomy History of tooth extraction Hx of appendectomy Hx of cholecystectomy Status post medial meniscus repair Family History Mother Diabetes Heart disease Myocardial infarction Cardiac disorder Father Ulcerative colitis Grandmother (Paternal) Breast cancer Grandfather (Paternal) Colorectal cancer Denies family history of Ovarian cancer Prostate cancer Hypertension Stroke Social History Smoking Status: Former smoker Tobacco Type: Cigarettes Cigarettes Per Day: 1/2 PPD; Second Hand Exposure: No; Hx Alcohol Use: No Hx Substance Use: No Preferred Language: Turkish Communication Ability: Effective Visual Impairment: No Limitations Hearing Ability: Normal Lathe Tender Required: No Beliefs That Will Affect Care: Roman Catholic Roman Catholic Beliefs: Patient is Shinto marital status: Current Living Situation: Spouse Current Living Situation Comment: Lives with daughter Feels Safe at Home: Yes Childhood Exposure to Second-Hand Smoke: Yes caffeine: Yes Dental Care, Regularly: Yes Physical Activity Frequency: Does not Exercise Seatbelt Use: always Sunscreen Use: Yes Assistive Devices: Glasses Review of Systems A total of 10 systems reviewed and were otherwise negative Physical Exam Vital Signs Vital Signs - 24 hr 12/26/20 11:50 12/26/20 14:09 Temperature 36.8 C Temperature Source Temporal Artery Scan Pulse Rate 71 Pulse Rate [Apical] 84 Respiratory Rate 18 18 Respiratory Effort / Characteristics Non-Labored Spontaneous Respiratory Depth Normal Respiratory Pattern Regular Blood Pressure 155/91 H Blood Pressure [Right Arm] 156/94 H Blood Pressure Mean 112 Blood Pressure Mean [Right Arm] 114 Blood Pressure Position Sitting Blood Pressure Position [Right Arm] Lying Pulse Oximetry 96 96 Oxygen Delivery Method Room Air Sepsis Recent Fever Within 48 Hours No Sepsis New/Unexplained Change in Mental Status N/A Sepsis Action Taken by Nursing No Action Required VITALS: Vitals are noted on the nurse's note and reviewed by myself. GENERAL: This is a 50-year-old female, in no acute distress, well-developed well-nourished. SKIN: There is serous drainage coming from the umbilicus. Mild induration to the periumbilical skin with some surrounding erythema. EYES: Pupils equal round and reactive to light and accommodation. MOUTH: Mucous membranes moist. NECK: Supple without nuchal rigidity. No lymphadenopathy. HEART: Regular rate and rhythm without murmurs gallops or rubs. LUNGS: Clear to auscultation bilaterally without wheezes, rales or rhonchi. ABDOMEN: Positive bowel sounds x 4. Erythema in the periumbilical region with serous drainage from the umbilicus. No abdominal tenderness to palpation. NEURO: Patient was alert and oriented to person place and time. Course Administered Medications Discontinued Medications Amlodipine Besylate (Amlodipine Besylate 5 Mg Tab) 5 mg PO PM FABIAN Stop: 01/25/21 20:59 Last Admin: 12/26/20 20:58 Dose: 5 mg Documented by: [id number] Bupivacaine HCl (Bupivacaine 0.5 % 5 Mg/1 Ml Mpf 30ml Vial) Confirm Administered Dose 30 ml .ROUTE .STK-MED ONE Stop: 12/27/20 13:33 Last Admin: 12/27/20 15:42 Dose: Not Given Documented by: [id number] Epinephrine HCl (Epinephrine Inj 1 Mg/Ml Amp) Confirm Administered Dose 1 mg .ROUTE .STK-MED ONE Stop: 12/27/20 13:33 Last Admin: 12/27/20 15:42 Dose: Not Given Documented by: [id number] Escitalopram Oxalate (Escitalopram Oxalate 20 Mg Tab) 20 mg PO HS FABIAN Stop: 01/25/21 20:59 Last Admin: 12/26/20 20:58 Dose: 20 mg Documented by: [id number] Famotidine (Famotidine 20 Mg Tab) 20 mg PO BID [facility] Stop: 01/25/21 20:59 Last Admin: 12/27/20 08:35 Dose: 20 mg Documented by: [id number] Admin: 12/26/20 20:59 Dose: 20 mg Documented by: [id number] Vancomycin HCl 2,500 mg/ (Sodium Chloride) 550 mls @ 200 mls/hr IV NOW ONE Stop: 12/26/20 18:38 Last Infusion: 12/26/20 18:00 Dose: 0 mls/hr Documented by: [id number] Admin: 12/26/20 16:06 Dose: 200 mls/hr Documented by: [id number] Lactated Ringer's (Lr) 1,000 mls @ 50 mls/hr IV .Q20H FABIAN Stop: 01/25/21 19:53 Last Infusion: 12/27/20 19:22 Dose: 0 mls/hr Documented by: [id number] Admin: 12/26/20 20:43 Dose: 50 mls/hr Documented by: [id number] Clindamycin Phosphate 600 mg/ (Dextrose) 54 mls @ 100 mls/hr IV Q8H FABIAN; Protocol Stop: 01/02/21 20:59 Last Admin: 12/27/20 14:06 Dose: 100 mls/hr Documented by: [id number] Infusion: 12/27/20 05:42 Dose: 0 mls/hr Documented by: [id number] Admin: 12/27/20 05:09 Dose: 100 mls/hr Documented by: [id number] Infusion: 12/26/20 21:19 Dose: 0 mls/hr Documented by: [id number] Admin: 12/26/20 20:43 Dose: 100 mls/hr Documented by: [id number] Ioversol (Optiray 320 100ml) 94 ml IV ONCE ONE Stop: 12/26/20 14:28 Last Admin: 12/26/20 14:28 Dose: 94 ml Documented by: [id number] Medical Decision Making Differential Diagnosis Differential diagnosis includes cellulitis, abscess, sepsis, intra-abdominal abscess, among others. Home Medications Current Medication List: was personally reviewed by me Laboratory Data Attestation: I reviewed the patient's lab results. Result diagrams: 12/26/20 13:33 12/26/20 13:33 Lab Results 12/26/20 12/26/20 Range/Units 13:33 13:33 WBC 6.11 (4.8-10.8) K/uL RBC 4.77 (4.2-5.4) M/uL Hgb 13.7 (12.0-16.0) g/dL Hct 41.2 (37-47) % MCV 86.4 (80-100) fL MCH 28.7 (25-34) pg MCHC 33.3 (32-36) g/dL RDW Std Deviation 43.1 (36.4-46.3) fL RDW Coeff of Genoveva 13.8 (11.5-14.5) % Plt Count 251 (130-400) K/uL MPV 10.1 (7.4-10.4) fL Immature Gran % (Auto) 0.2 % Neut % (Auto) 58.9 % Lymph % (Auto) 27.5 % Brantley % (Auto) 9.3 % Eos % (Auto) 3.4 % Baso % (Auto) 0.7 % Neut # (Auto) 3.60 (1.4-6.5) K/uL Lymph # (Auto) 1.68 (1.2-3.4) K/uL Brantley # (Auto) 0.57 (0.11-0.59) K/uL Eos # (Auto) 0.21 (0-0.5) K/uL Baso # (Auto) 0.04 (0-0.2) K/uL Immature Gran # (Auto) 0.01 (0.00-0.02) K/uL Sodium 141 (136-145) mmol/L Potassium 4.1 (3.5-5.1) mmol/L Chloride 110 H (98-107) mmol/L Carbon Dioxide 25 (21-32) mmol/L Anion Gap 6.0 (3-11) BUN 12 (7-18) mg/dl Creatinine 0.57 L (0.6-1.2) mg/dl Est Cr Clr Drug Dosing 159.0 ml/min Est GFR ( Amer) 123.5 ml/min Est GFR (Non-Af Amer) 106.6 ml/min BUN/Creatinine Ratio 20.4 H (10-20) Glucose 94 (70-99) mg/dl Calcium 9.1 (8.5-10.1) mg/dl Total Bilirubin 0.3 (0.2-1) mg/dl AST 18 (15-37) U/L ALT 36 (12-78) U/L Alkaline Phosphatase 74 (45-117) U/L Total Protein 7.5 (6.4-8.2) gm/dl Albumin 3.5 (3.4-5.0) gm/dl Globulin 4.0 (2.5-4.0) gm/dl Albumin/Globulin Ratio 0.9 (0.9-2) Imaging Data Attestation: I personally reviewed and interpreted this imaging study as follows: Radiologist's Impression: CT SCAN OF THE ABDOMEN AND PELVIS WITH IV CONTRAST CLINICAL HISTORY: Abdominal wound infection. Cellulitis. COMPARISON STUDY: Abdominal CT dated 06/06/2020. TECHNIQUE: Following the IV administration of 94 cc of Optiray 320, CT scan of the abdomen and pelvis is performed from the lung bases to the proximal femora. Images are reviewed in the axial, sagittal, and coronal planes. IV contrast was administered without complication. A dose lowering technique was utilized adhering to the principles of ALARA. CT DOSE: 1641.42 mGy.cm FINDINGS: Lung bases: The heart is normal in size and without pericardial effusion. The lung bases are clear. Liver: The contrast-enhanced liver is enlarged, measuring 20.8 cm in length. The liver demonstrates diffusely diminished attenuation consistent with hepatic steatosis. There is no intrahepatic biliary ductal dilatation. The hepatic veins and portal veins are patent. Gallbladder: Surgically absent noting clips in the gallbladder fossa. Spleen: Normal in size and attenuation. Pancreas: Unremarkable. Adrenal glands: Unremarkable. Kidneys: The contrast enhanced kidneys are normal in size and without hydronephrosis. The kidneys enhance symmetrically. Abdominal vasculature: The abdominal aorta is normal in course and caliber noting moderate atherosclerotic calcification. Bowel: There is postoperative change from ileocecal resection. There is moderate colonic diverticulosis without CT evidence of acute diverticulitis. No bowel obstruction is seen. The appendix is surgically absent. Peritoneum: There is no intraperitoneal free air or abdominal ascites. There is evidence of previous ventral hernia repair. There is an approximate 5 x 8 x 2 cm fluid collection superficial to the peritoneal reflection in the periumbilical/right supraumbilical soft tissues. This is best seen on image #322. A 2.5 cm loculation is seen along the right aspect of the umbilicus at the dermal surface on image #338. Mild surrounding soft tissue infiltration is noted. There is no definite evidence of intraperitoneal extension. Lymphadenopathy: None. Pelvic viscera: The bladder, uterus, and adnexa are normal as visualized. Skeletal structures: There is mild lumbosacral spondylosis, greatest at L4-L5 and L5-S1. No lytic or blastic lesions are seen. IMPRESSION: 1. Again seen is postoperative change from previous ventral hernia repair. 2. There is a loculated fluid collection within the periumbilical/right supraumbilical soft tissues superficial to the peritoneal reflection as detailed above. This could represent a postoperative seroma or abscess and clinical correlation will be essential. 3. There is no definite intraperitoneal extension. 4. Hepatomegaly and hepatic steatosis. 5. Colonic diverticulosis without CT evidence of acute diverticulitis. 6. Additional findings as above. MDM Narrative This patient is a 50-year-old female who presents to the emergency department for evaluation of a nonhealing wound to her abdomen. Unfortunately, patient has had a long and complicated course attempting to heal this wound and has had mult iple surgeries and a wound VAC. She has been doing well for several months, but woke up this morning with some drainage from the umbilicus. A CT scan of the abdomen/pelvis was performed and shows a fluid collection representing seroma versus abscess. General surgery was consulted and it arrive to evaluate the patient. Patient was given a dose of vancomycin based on her prior culture results and allergy list. Patient was admitted to the surgery service for further care. Impression & Plan Abdominal abscess Discharge Plan Visit Data Chief Complaint: Infection, Wound Stated Complaint: LOWER ABD WOUND,INFECTION ED Provider: Kuldip Mazariegos ED Midlevel Provider: Keturah Lindsay Discharge Problem: Abdominal abscess Patient Disposition: Admitted As Inpatient Discharge Instructions Interventions: ED Discharge Assessment Last Done: 12/26/20 19:37
[2020-12-26] MEDS ORDERED: OPTIRAY 320 100ml IV ONE (14:27)
--- NOTE | 2020-12-26 15:00 | CT Scan Report ---
CT SCAN OF THE ABDOMEN AND PELVIS WITH IV CONTRAST CLINICAL HISTORY: Abdominal wound infection. Cellulitis. COMPARISON STUDY: Abdominal CT dated 06/06/2020. TECHNIQUE: Following the IV administration of 94 cc of Optiray 320, CT scan of the abdomen and pelvi s is performed from the lung bases to the proximal femora. Images are reviewed in the axial, sagittal , and coronal planes. IV contrast was administered without complication. A dose lowering technique wa s utilized adhering to the principles of ALARA. CT DOSE: 1641.42 mGy.cm FINDINGS: Lung bases: The heart is normal in size and without pericardial effusion. The lung bases are clear. Liver: The contrast-enhanced liver is enlarged, measuring 20.8 cm in length. The liver demonstrates d iffusely diminished attenuation consistent with hepatic steatosis. There is no intrahepatic biliary d uctal dilatation. The hepatic veins and portal veins are patent. Gallbladder: Surgically absent noting clips in the gallbladder fossa. Spleen: Normal in size and attenuation. Pancreas: Unremarkable. Adrenal glands: Unremarkable. Kidneys: The contrast enhanced kidneys are normal in size and without hydronephrosis. The kidneys enh ance symmetrically. Abdominal vasculature: The abdominal aorta is normal in course and caliber noting moderate atheroscle rotic calcification. Bowel: There is postoperative change from ileocecal resection. There is moderate colonic diverticulos is without CT evidence of acute diverticulitis. No bowel obstruction is seen. The appendix is surgic ally absent. Peritoneum: There is no intraperitoneal free air or abdominal ascites. There is evidence of previous ventral hernia repair. There is an approximate 5 x 8 x 2 cm fluid collection superficial to the perit lange reflection in the periumbilical/right supraumbilical soft tissues. This is best seen on image # 322. A 2.5 cm loculation is seen along the right aspect of the umbilicus at the dermal surface on judith ge #338. Mild surrounding soft tissue infiltration is noted. There is no definite evidence of intrape ritoneal extension. Lymphadenopathy: None. Pelvic viscera: The bladder, uterus, and adnexa are normal as visualized. Skeletal structures: There is mild lumbosacral spondylosis, greatest at L4-L5 and L5-S1. No lytic or blastic lesions are seen. IMPRESSION: 1. Again seen is postoperative change from previous ventral hernia repair. 2. There is a loculated fluid collection within the periumbilical/right supraumbilical soft tissues s uperficial to the peritoneal reflection as detailed above. This could represent a postoperative serom a or abscess and clinical correlation will be essential. 3. There is no definite intraperitoneal extension. 4. Hepatomegaly and hepatic steatosis. 5. Colonic diverticulosis without CT evidence of acute diverticulitis. 6. Additional findings as above. ACT 112: Negative or not required by law. Electronically signed by: Kenn Epps M.D. 12/26/2020 2:58 PM
[2020-12-26] MEDS ORDERED: VANCOMYCIN HCL 2,500 MG in SODIUM CHLORIDE 0.9% 500 ML IV ONE (15:54)
[2020-12-26] MEDS ORDERED: VANCOMYCIN CONSULT ACTIVE PRN (15:54)
--- NOTE | 2020-12-26 16:21 | History & Physical Report ---
Date of Service December 26, 2020 Assessment & Plan (1) Postoperative wound infection: Plan: I believe we should admit her for IV antibiotics considering the erythema. I will schedule her for tomorrow in the operating room to perform an incision and drainage of the area and pack it. We discussed other options as well as risks. She agrees with the plan. (2) Morbid obesity: History of Present Illness Primary Care Provider: Galileo Sanchez MD And that is a 50-year-old female with a very complex history recently. Originally an appendectomy was performed which showed adenocarcinoma. Eventually she went on to have a laparoscopic right colectomy which did not show any residual disease. She follows with Dr. Ritchie who is currently not recommending any chemotherapy. She end up getting an incisional hernia which required a rather large surgery involving component separation and ovitex mesh placed by Dr. Lainez. She subsequently ended up with a wound infection and dehiscence requiring prolonged wound care management primarily involving a wound VAC. Her last visit with the wound center was in May and apparently the wound was completely closed. She began today with leakage near the umbilicus. CT scan reveals a subcutaneous fluid collection. The patient has minimal pain. She denies fevers or chills. Her WBC is normal. Allergies Allergy/AdvReac Type Severity Reaction Status Date / Time cephalexin Allergy Intermediate HIVES Verified 12/26/20 16:08 erythromycin base Allergy Intermediate HIVES Verified 12/26/20 16:08 nitrofurantoin Allergy Intermediate HIVES Verified 12/26/20 16:08 Penicillins Allergy Intermediate HIVES Verified 12/26/20 16:08 influenza virus vacc AdvReac Intermediate HEADACHE & Verified 12/26/20 16:08 trivalent, split MYALGIA [From Fluzone] Sulfa (Sulfonamide AdvReac Mild HEADACHES Verified 12/26/20 16:08 Antibiotics) pork derived (porcine) AdvReac Verified 12/26/20 16:08 Pork/Porcine Containing AdvReac Verified 12/26/20 16:08 Products Home Medications Medication Instructions Recorded Confirmed Type escitalopram oxalate 20 mg tablet 20 mg PO HS #90 tab 02/21/20 12/26/20 Rx famotidine 20 mg tablet 20 mg PO BID #180 tab 03/22/20 12/26/20 Rx apixaban 5 mg tablet (Eliquis) 5 mg PO BID #60 tab 07/03/20 12/26/20 Rx amlodipine 5 mg tablet 5 mg PO PM #90 tab 10/16/20 12/26/20 Rx Past Med/Surg History Medical History Adenocarcinoma, 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 Lainez 09/21/19 History of adenoidectomy History of arthroscopy LEFT KNEE History of cataract surgery RT History of colonoscopy History of hemicolectomy 07/06/19 History of incisional hernia repair 07/06/19 History of tonsillectomy History of tooth extraction Hx of appendectomy Hx of cholecystectomy Status post medial meniscus repair Family History Mother Diabetes Heart disease Myocardial infarction Cardiac disorder Father Ulcerative colitis Grandmother (Paternal) Breast cancer Grandfather (Paternal) Colorectal cancer Denies family history of Ovarian cancer Prostate cancer Hypertension Stroke Social History Smoking Status: Former smoker Tobacco Type: Cigarettes Cigarettes Per Day: 1/2 PPD; Second Hand Exposure: No; Hx Alcohol Use: No Hx Substance Use: No Preferred Language: Vietnamese Communication Ability: Effective Visual Impairment: No Limitations Hearing Ability: Normal Security Lead Required: No Beliefs That Will Affect Care: Tenriism Tenriism Beliefs: Pentecostalism marital status: Current Living Situation: Spouse Current Living Situation Comment: special needs child at home Feels Safe at Home: Yes Childhood Exposure to Second-Hand Smoke: Yes caffeine: Yes Dental Care, Regularly: Yes Physical Activity Frequency: Does not Exercise Seatbelt Use: always Sunscreen Use: Yes Assistive Devices: Glasses Review of Systems Review of Systems: All systems reviewed & are unremarkable except as noted in HPI & below Physical Exam Constitutional: WD/WN, vitals as above no acute distress and not ill appearing Eyes: PERRL, conjunctivae normal, anicteric sclerae EOM intact bilaterally ENMT: external ear and nose normal, oropharynx normal Ears: no hearing impairment Neck: trachea midline, no thyromegaly Respiratory: normal respiratory effort; no respiratory distress and does not use accessory muscles Cardiovascular: Rate/Rhythm: regular rate and regular rhythm Gastrointestinal (Abdomen): Contracted but healed midline incision. She has a centralized fluctuance with surrounding erythema. Small amount of thin but cloudy fluid. There is no foul odor. Skin: no rashes, warm and dry Psychiatric: Orientation: alert, oriented x 3 and cooperative Results & Data Results & Data ([facility]) Vital Signs (Past 12 Hours) Vital Signs Temp Pulse Pulse Resp BP BP Pulse Ox 12/26/20 14:09 84 18 156/94 H 96 12/26/20 11:50 36.8 C 71 18 155/91 H 96 PG Care Time/CCT Total # of Minutes Spent Total Time Spent with Patient: Total time spent is greater than 50% in coordination of care (as documented) at patient's floor/unit and/or counseling patient: Coding Level of Care Code INT OBSERVATION CARE 70M LVL 3 Diagnoses Postoperative wound infection T81.49XA Morbid obesity E66.01
[2020-12-26] MEDS ORDERED: MoRPHine SULFATE 2 MG/ML CARP IV PRN (19:54)
[2020-12-26] MEDS ORDERED: ONDANSETRON INJ 2 MG/ML 2 ML VIAL IV PRN (19:54)
[2020-12-26] MEDS ORDERED: MoRPHine SULFATE 4 MG/ML 1 ML CARP\\VIAL IV PRN (19:54)
[2020-12-26] MEDS ORDERED: LACTATED RINGER'S 1,000 ML IV SCH (19:54)
[2020-12-26] MEDS ORDERED: oxyCODONE/ACETAMINOPHEN 5mg/325mg TAB PO PRN ×2 (19:54)
[2020-12-26] MEDS: CLINDAMYCIN 600 MG in DEXTROSE 5% 50 ML IV SCH (20:43)
[2020-12-26] MEDS: FAMOTIDINE 20 MG TAB PO SCH (20:59)
[2020-12-26] MEDS ORDERED: amLODIPine BESYLATE 5 MG TAB PO SCH (21:00)
[2020-12-26] MEDS ORDERED: ESCITALOPRAM OXALATE 20 MG TAB PO SCH (21:00)
[2020-12-27] MEDS: CLINDAMYCIN 600 MG in DEXTROSE 5% 50 ML IV SCH ×2 (05:09→14:06)
[2020-12-27] MEDS: FAMOTIDINE 20 MG TAB PO SCH (08:35)
[2020-12-27] MEDS ORDERED: DEXAMETHASONE SOD INJ 4 MG/ML VIAL ONE (13:07)
[2020-12-27] MEDS ORDERED: LIDOCAINE 2% 2 ML VIAL/AMP(20MG/ML) INFIL ONE (13:07)
[2020-12-27] MEDS ORDERED: PROPOFOL IV EMULSION 10 MG/ML 20 ML VIAL IV ONE (13:07)
[2020-12-27] MEDS ORDERED: ONDANSETRON INJ 2 MG/ML 2 ML VIAL ONE (13:07)
[2020-12-27] MEDS ORDERED: fentaNYL citrate 100 MCG/2 ML VIAL ONE (13:08)
[2020-12-27] MEDS ORDERED: MIDAZOLAM HCL 1 MG/ML 2ML VIAL ONE (13:09)
--- NOTE | 2020-12-27 13:19 | Anesthesiology Consultation ---
Date of Service December 27, 2020 Assessment & Plan (1) Encounter for pre-operative examination: History Surgery Operation Date: 12/27/20 12:45 Proposed Procedures p Incision and Drainage Abdominal Abscess - Vin Davis DO Height/Weight Height: 5 ft 8 in Weight: 121.5 kg Allergies Allergy/AdvReac Type Severity Reaction Status Date / Time cephalexin Allergy Intermediate HIVES Verified 12/26/20 16:08 erythromycin base Allergy Intermediate HIVES Verified 12/26/20 16:08 nitrofurantoin Allergy Intermediate HIVES Verified 12/26/20 16:08 Penicillins Allergy Intermediate HIVES Verified 12/26/20 16:08 influenza virus vacc AdvReac Intermediate HEADACHE & Verified 12/26/20 16:08 trivalent, split MYALGIA [From Fluzone] Sulfa (Sulfonamide AdvReac Mild HEADACHES Verified 12/26/20 16:08 Antibiotics) pork derived (porcine) AdvReac Verified 12/26/20 16:08 Pork/Porcine Containing AdvReac Verified 12/26/20 16:08 Products Medications Home Medications Medication Instructions Recorded Confirmed Last Taken escitalopram oxalate 20 mg tablet 20 mg PO HS #90 tab 02/21/20 12/26/20 Unknown famotidine 20 mg tablet 20 mg PO BID #180 tab 03/22/20 12/26/20 Unknown apixaban 5 mg tablet (Eliquis) 5 mg PO BID #60 tab 07/03/20 12/26/20 Unknown amlodipine 5 mg tablet 5 mg PO PM #90 tab 10/16/20 12/26/20 Unknown clindamycin HCl 300 mg capsule 300 mg PO Q8H 14 Days #42 cap 12/27/20 Unknown Active Medications Generic Name Dose Route Start Last Admin Trade Name Freq PRN Reason Stop Dose Admin Amlodipine Besylate 5 mg 12/26/20 21:00 12/26/20 20:58 Amlodipine Besylate 5 Mg Tab PO 01/25/21 20:59 5 mg PM FABIAN Administration Escitalopram Oxalate 20 mg 12/26/20 21:00 12/26/20 20:58 Escitalopram Oxalate 20 Mg Tab PO 01/25/21 20:59 20 mg HS FABIAN Administration Famotidine 20 mg 12/26/20 21:00 12/27/20 08:35 Famotidine 20 Mg Tab PO 01/25/21 20:59 20 mg BID FABIAN Administration Lactated Ringer's 1,000 mls @ 50 mls/hr 12/26/20 19:54 12/26/20 20:43 Lr IV 01/25/21 19:53 50 mls/hr .Q20H FABIAN Administration Clindamycin Phosphate 600 mg/ 54 mls @ 100 mls/hr 12/26/20 21:00 12/27/20 05:42 Dextrose IV 01/02/21 20:59 Infused Q8H FABIAN Infusion Protocol Past Medical History Medical History Adenocarcinoma, 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 Anxiety DVT (deep venous thrombosis) Dysuria Former smoker GERD (gastroesophageal reflux disease) Hyperlipidemia Hypertension Migraine HX Osteoarthritis Serrated adenoma of colon Sleep apnea Past Family History Family History Mother Diabetes Heart disease Myocardial infarction Cardiac disorder Father Ulcerative colitis Grandmother (Paternal) Breast cancer Grandfather (Paternal) Colorectal cancer Denies family history of Ovarian cancer Prostate cancer Hypertension Stroke Past Surgical History Surgical History H/O ovarian cystectomy History of abdominal surgery (09/21/19) Washout Abdominal Wound with debridement, placement of negative pressure therapy device >50cm2 Dr. Lainez 09/21/19 History of adenoidectomy History of arthroscopy LEFT KNEE History of cataract surgery RT History of colonoscopy History of hemicolectomy 07/06/19 History of incisional hernia repair 07/06/19 History of tonsillectomy History of tooth extraction Hx of appendectomy Hx of cholecystectomy Status post medial meniscus repair Social History Smoking Status: Former smoker tobacco type: cigarettes Smoking cigarettes per day: 1/2 PPD Do You Dip or Chew Tobacco: No Smoking End Date: September 2019 Hx Alcohol Use: No Alcohol type: wine alcohol intake frequency: a few times a month Hx Substance Use: No substance use type: does not use Physical Exam Vital Signs Last Vital Signs Temp 36.5 C 12/27/20 07:00 Pulse 68 12/27/20 07:00 Resp 20 12/27/20 07:00 BP 132/85 12/27/20 07:00 Pulse Ox 93 12/27/20 07:00 Testing Laboratory Results 12/26/20 13:33 12/26/20 13:33 12/26/20 13:20 Gram Stain - Final Abdomen Wound Culture - Preliminary Pin-point growth present, reincubating. 12/27/20 13:20 POC Ur Test NEG Electrocardiogram Date: 12/27/20 Findings: + NSR @
[2020-12-27] MEDS ORDERED: ePHEDrine sulfate 50 MG/ML AMP IV PRN ×2 (13:21→14:04)
[2020-12-27] MEDS ORDERED: HYDROmorphone INJ 1 MG/ML SYRINGE IV PRN ×2 (13:21→14:04)
[2020-12-27] MEDS ORDERED: ATROPINE SULFATE 0.1 MG/ML 10ML SYR IV PRN ×2 (13:21→14:04)
[2020-12-27] MEDS ORDERED: fentaNYL citrate 100 MCG/2 ML VIAL IV PRN ×2 (13:21→14:04)
[2020-12-27] MEDS ORDERED: ONDANSETRON INJ 2 MG/ML 2 ML VIAL IV PRN ×2 (13:21→14:04)
[2020-12-27] MEDS ORDERED: EPINEPHrine INJ 1 MG/ML AMP ONE (13:32)
[2020-12-27] MEDS ORDERED: BUPIVACAINE 0.5 % 5 MG/1 ML MPF 30ML VIAL ONE (13:32)
--- NOTE | 2020-12-27 13:32 | History & Physical Bridge Note ---
Date of Service December 27, 2020 History & Physical Bridge Note I have examined the patient, reviewed the History & Physical and in the interval since the performance of the History & Physical I have noted the following changes of clinical significance: no changes noted
[2020-12-27] MEDS ORDERED: KETAMINE 50 MG/5 ML SYRINGE ONE (14:23)
[2020-12-27] MEDS ORDERED: GLYCOPYRROLATE 0.2 MG/ML VIAL ONE (14:42)
--- NOTE | 2020-12-27 14:51 | Operative Report ---
PG Post Operative Report Pre & Post Diagnosis Operation Date: 12/27/20 12:45 Pre-Op Diagnosis: abdominal wall abcess Post-Op Diagnosis: abdominal wall abcess I identified the patient and participated in the time-out.: Yes Procedure Operation Date: 12/27/20 12:45 <No data on this case meets the specified criteria> Surgeon Vin Davis DO Steelscope Operator viet borges Estimated Blood Loss 5 Findings Consistent with Post-Op Diagnosis Specimens fluid for culture Description of Procedure After informed consent was obtained the patient was taken to the operating room and placed in supine position. After successful placement of the laryngeal mask airway the abdominal wall was sterilely prepped and draped with Betadine solution. A periumbilical incision over top of the palpable fluctuance was made. We immediately entered the soft tissue cavity and encountered cloudy fluid. A sample of the fluid was taken and sent for Gram stain culture and sensitivity. We were able to use a suction device to clean out the abscess cavity. There was tunneling primarily to the right lateral side of the abdominal wall. We then thoroughly irrigated the entire cavity. A 1 inch [place] drain was advanced into the cavity. It was secured to the skin using 0 Ethibond. Sterile dressing was applied. The patient was awakened extubated and transferred to recovery in stable condition. My physician hardware sales assistant was present for the entire case and assisted in all aspects of the procedure. I attest to the content of the Intraoperative Record and any orders documented therein. Any exceptions are noted below.
--- NOTE | 2020-12-27 15:34 | Anesthesiology Progress Note ---
Date of Service December 27, 2020 Anesthesia Post Procedure Vital Signs Vital Signs: Temp Pulse Pulse Resp BP BP Pulse Ox 12/27/20 15:30 36.5 C 68 20 124/85 93 12/27/20 15:20 36.2 C L 63 18 122/71 94 12/27/20 15:10 66 18 118/76 94 12/27/20 15:00 62 18 112/69 94 12/27/20 14:51 36.0 C L 66 18 117/85 95 12/27/20 13:57 36.5 C 64 20 121/64 97 12/27/20 07:00 36.5 C 68 20 132/85 93 12/26/20 22:55 36.7 C 79 18 114/67 92 12/26/20 20:40 66 156/81 H 12/26/20 19:45 36.4 C L 78 16 158/92 H 95 12/26/20 19:18 72 18 138/77 98 12/26/20 16:15 64 18 142/73 H 98 Transfer of Care Handoff Completed per policy Notes Mental Status: alert / awake / arousable Patient Amnestic to Procedure: Yes Nausea / Vomiting: adequately controlled Pain: adequately controlled Airway Patency, RR, SpO2: stable & adequate BP & HR: stable & adequate Hydration State: stable & adequate Anesthetic Complications: no major complications apparent
--- NOTE | 2020-12-28 10:12 | Discharge Summary ---
Date of Service December 28, 2020 Admission HPI Per Admitting Provider And that is a 50-year-old female with a very complex history recently. Originally an appendectomy was performed which showed adenocarcinoma. Eventually she went on to have a laparoscopic right colectomy which did not show any residual disease. She follows with Dr. Ritchie who is currently not recommending any chemotherapy. She end up getting an incisional hernia which required a rather large surgery involving component separation and ovitex mesh placed by Dr. Lainez. She subsequently ended up with a wound infection and dehiscence requiring prolonged wound care management primarily involving a wound VAC. Her last visit with the wound center was in May and apparently the wound was completely closed. She began today with leakage near the umbilicus. CT scan reveals a subcutaneous fluid collection. The patient has minimal pain. She denies fevers or chills. Her WBC is normal. Principal Diagnosis post operative wound infection Discharge Exam awake/alert Gastrointestinal (Abdomen) Inspection/Auscultation: + abdominal surgical incision (surgical dressing in place, c/d/i) Discharge Data Allergies Allergy/AdvReac Type Severity Reaction Status Date / Time cephalexin Allergy Intermediate HIVES Verified 12/26/20 16:08 erythromycin base Allergy Intermediate HIVES Verified 12/26/20 16:08 nitrofurantoin Allergy Intermediate HIVES Verified 12/26/20 16:08 Penicillins Allergy Intermediate HIVES Verified 12/26/20 16:08 influenza virus vacc AdvReac Intermediate HEADACHE & Verified 12/26/20 16:08 trivalent, split MYALGIA [From Fluzone] Sulfa (Sulfonamide AdvReac Mild HEADACHES Verified 12/26/20 16:08 Antibiotics) pork derived (porcine) AdvReac Verified 12/26/20 16:08 Pork/Porcine Containing AdvReac Verified 12/26/20 16:08 Products Procedures Performed Operation Date: 12/27/20 12:45 Actual Procedures p Incision and Drainage Abdominal Abscess - Vin Davis, Ordered Studies 12/26/20 13:09 CT abd pelvis IV con only Stat Hospital Course (1) Postoperative wound infection: This is a 50yF with a recent complex surgical history including appendectomy showing adenocarcinoma, proceeded by laparoscopic R colectomy, complicated by incisional hernia and then post op wound infection and dehiscence requiring wound care management with wound vac. Unfortunately of recent the patient noted some new drainage by her umbilical region. A CT a/p revealed a subcutaneous fluid collection. WBC 6. Patient denies fevers/chills. After examination and review of findings it was deemed appropriate to admit patient to start IV abx and plan for drainage of fluid collection in the OR the following day. On 12/27 the patient went to the OR with Dr. Davis and underwent incision and drainage of abdominal abscess. The patient tolerated the procedure well, see op note for full details. She recovered in the PACU and was transferred back to the med/surg unit in stable condition with a norman drain and dressing consisting of 4x4 gauze, ABD pad, and medipore tape. Diet was initiated and tolerated. Pain controlled with prn medication. On 12/27/20 the patient was deemed stable for discharge to home. She was given a 14day course of Clindamycin to complete. She was given instructions to change her wound dressing daily and as needed with gauze and tape. She was instructed to follow up with Dr. Davis in clinic within 1-2 weeks. She was discharged to home on 12/27/20. . Total Time Total Time Spent Total Time Spent (In Minutes): 10 Discharge Plan Discharge Items Patient Disposition: Home - Self-Care Reason For Visit: CELLULITIS Discharge Diagnosis: incision and drainage of abdominal abscess Activity: Per Instructions section Lifting: No more than 25 pounds Bathing Comment: may shower; no soaking in tubs/pools Exercise/Sports: Wait until after follow-up appointment Driving/Machine Use: no driving while taking narcotic for pain Non-emergency contact: Surgeon Call non-emergency contact if: you have any medication questions, your symptoms worsen, your pain is not controlled, your pain is worsening, your pain is concerning for you, you have a fever, your temperature is above 101.5, your wound has increased redness, your wound has increased drainage and your wound pain has increased Follow-up/Referrals: Galileo Sanchez MD [Primary Care Provider] - 01/04/21 11:00 am (Apt with Corine Espino PA-C) Vin Davis DO [Surgeon] - 01/09/21 10:00 am () Diet: Regular Addtl Attending Provider Instructions: Please complete the full course of antibiotic prescribed to you You may change your dressing daily and as needed with dry 4x4 gauze, ABD pad, and medical tape You have a surgical drain in place that will be removed at one of your follow up appointments You may resume your Eliquis tomorrow, 12/28/20 Pending Studies at Discharge: Yes Stand-Alone Forms: My [facility], Smoking Cessation Medications and DC Order Prescriptions: New clindamycin HCl 300 mg capsule 300 mg PO Q8H 14 Days Qty: 42 RF: 0 hydrocodone-acetaminophen 5-325 mg tablet 1 - 2 tab PO .q4h- q6h PRN (Reason: pain, for initial therapy, max 6 tabs per day ) Qty: 7 RF: 0 Continued escitalopram oxalate 20 mg tablet 20 mg PO HS Qty: 90 RF: 3 famotidine 20 mg tablet 20 mg PO BID Qty: 180 RF: 3 Eliquis 5 mg tablet 5 mg PO BID Qty: 60 RF: 6 amlodipine 5 mg tablet 5 mg PO PM Qty: 90 RF: 3 Discharge Orders: Discharge Order (Routine); Ordered 12/27/20 Ordered By: Barbara Rosenberg/Other Patient Handouts: Medicine for Pain Admission Data Admit Date/Time: 12/26/20 16:16 Attending Provider: Vin Davis Admit Provider: Krish Graham Jr Primary Care Provider: Galileo Sanchez Other Interventions: Discharge Summary Assessment (RN) Last Done: 12/27/20 19:49 Coding Level of Care Code D/C DAY MANAGEMENT <30 MINS Diagnoses Postoperative wound infection T81.49XA
--- NOTE | 2020-12-28 17:32 | Electrocardiogram Report ---
Test Reason : Blood Pressure : / mmHG Vent. Rate : 061 BPM Atrial Rate : 061 BPM P-R Int : 168 ms QRS Dur : 090 ms QT Int : 430 ms P-R-T Axes : 033 040 057 degrees QTc Int : 432 ms Normal sinus rhythm Normal ECG When compared with ECG of 07-MAR-2019 00:41, No significant change was found Confirmed by Greg Carter ([id number]) on 12/28/2020 5:31:52 PM Referred By: REFERRED SELF Confirmed By:Tiago Carter
== END 2020-12-27 21:15 | disposition home or self-care (01) ==
LOC: 3W 11:41 → ED 11:41 → 3W 19:37